=== PATIENT | male | born 1950 | race Hispanic/Latino ===

== ENCOUNTER 2017-12-21 15:17 | Emergency (ER) | payer OTHER ==
--- OUTSIDE RECORDS SUMMARY | 2017-12-21 15:19 | XMS REPORT | Continuity of Care Document ---
:1950 Author Organization Interface Problems Problem Status Onset Classification Date Comments Source Date Reported Leg swelling Active Problem 08/31/2017 [employer] [facility] Medications Medication Details Route Status Patient Ordering Order Source Instructions Provider Date Lisinopril 20 Mg Take 1 Oral Active [facility] Tablet Prinivil tablet by [facility] 20 Mg Tablet mouth daily. Atorvastatin 80 Take 1 Oral Active [facility] Tablet Lipitor tablet by [employer] 80 Mg Tablet mouth at bedtime nightly. Clopidogrel 75 Mg Take 1 Oral Active [employer] [facility] Tablet Plavix 75 tablet by [facility] Mg Tablet mouth daily. triamcinolone INTRA-A Inactive [facility] [facility] acetonide RTICULA [facility] (KENALOG-40) R injection 40 mg Spironolactone 25 Take 1 Oral Active [facility] Tablet tablet by [employer] Aldactone 25 Mg mouth daily. Tablet Furosemide 40 Mg Take 2 Oral Active [facility] [facility] Tablet Lasix 40 tablets by [employer] Mg Tablet mouth 2 times daily. Naproxen 500 Mg Take 1 Oral Active [employer] [facility] Tablet Naprosyn tablet by [employer] 500 Mg Tablet mouth 2 times daily as needed for Pain Take with food. Avoid prolonged daily use.. Furosemide 40 Mg Take 2 Oral No Longer [facility] Tablet Lasix 40 tablets by Active [facility] Mg Tablet mouth 2 times daily. Spironolactone 25 Take 1 Oral No Longer [facility] Tablet tablet by Active [employer] Aldactone 25 Mg mouth daily. Tablet Furosemide 20 Mg Take 2 Oral Active [employer] [facility] Tablet Lasix 20 tablets by [employer] Mg Tablet mouth 2 times daily. Atorvastatin 80 Take 1 Oral No Longer [facility] Tablet Lipitor tablet by Active [employer] 80 Mg Tablet mouth at bedtime nightly. Amlodipine 5 Mg Take 1 Oral Active [facility] Tablet Norvasc 5 tablet by [employer] Mg Tablet mouth daily. Clopidogrel 75 Mg Take 1 Oral No Longer [facility] [facility] Tablet Plavix 75 tablet by Active [facility] Mg Tablet mouth daily. Lisinopril 20 Mg Take 1 Oral No Longer [place] Tablet Prinivil tablet by Active [facility] 20 Mg Tablet mouth daily. Acetaminophen 300 Take 1 Oral Active [place] Mg-Codeine 30 Mg tablet by [facility] Tablet mouth every Tylenol-Codeine 4 hours as #3 300 Mg-30 Mg needed for Tablet Pain. Allergies, Adverse Reactions, Alerts Substance Category Reaction Severity Reaction Status Date Comments Source type Reported Immunizations Immunization Date Given Site Status Last Updated Comments Source Influenza Vaccine 01/03/2016 completed [facility] Results Order Results Value Reference Date Interpretation Comments Source Name Range Vital Signs Vital Sign Value Date Comments Source Systolic (mm Hg) 139 09/17/2016 [facility] Diastolic (mm Hg) 71 09/17/2016 [facility] Heart Rate 74 09/17/2016 [facility] Respitory Rate 18 09/17/2016 [facility] Temperature Oral (F) 36.72 [place] 09/17/2016 [facility] Height 157.5 cm 09/17/2016 [facility] Weight 107.956 09/17/2016 [facility] BMI Calculated 43.53 09/17/2016 [facility] Encounters Location Location Encounter Encounter Reason For Attending ADM DC Status Source Details Type Number Visit Provider Date Date Family Refill [id number] Leg Davina 08/22 [facility] swelling Franck TOLBERT /2017 [facility] Acr Abdominal swelling Family Refill [id number] Leg Davina 08/22 [facility] swelling Franck TOLBERT /2017 [facility] Abdominal swelling ASK YOUR Nurse [id number] Peppi 09/03 [place] NURSE Triage Chilo HOLLAND /2016 Health PROGRAM Emergency Emergency [id number] 09/03 09/03 [facility] /2016 Health ([id number][facility] [id number] 09/07 [facility] Home Visit /2016 [facility] Family Office [id number] Primary Luis 09/17 09/17 [place] [facility] Visit osteoarthri Donis TOLBERT /2016 Health Procedures [place] right knee Primary osteoarthri tis of left knee Family Refill [id number] Cerebrovasc Luis 12/21 [place] [facility] lisa Dykes MD /2017 [facility] [place] accident (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
--- OUTSIDE RECORDS SUMMARY | 2017-12-21 15:19 | XMS REPORT | Clinical Summary ---
:1950 Author Organization [facility] Address [address] [place] [address] Care Team Providers Name Role Phone Domenico Lawson ResidentMI Resident Care Provider Milton Andrade MD Primary Care Provider Allergies No Known Allergies Current Medications Prescription Sig. Disp. Refills Start Date End Date Status amLODIPine (NORVASC) Take 1 tablet 90 tablet 3 01/03/2016 Active 5 mg by mouth tabletIndications: daily. Cerebrovascular accident (CVA) due to thrombosis of left middle cerebral artery, Essential hypertension, benign acetaminophen-codein Take 1 tablet 45 tablet 0 01/03/2016 Active e (TYLENOL/CODEINE by mouth every #3) 300-30 mg per 4 hours as tabletIndications: needed for Cerebrovascular Pain. 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 Cerebrovascular accident (CVA) due to thrombosis of left middle cerebral artery, Bilateral swelling of feet and ankles naproxen (NAPROSYN) Take 1 tablet 180 tablet 0 05/27/2016 Active 500 mg by mouth 2 tabletIndications: times daily as Acute pain of right needed for knee Pain Take with food. Avoid prolonged daily use.. spironolactone Take 1 tablet 90 tablet 0 08/26/2016 Active (ALDACTONE) 25 mg by mouth tabletIndications: daily. Leg swelling, Abdominal swelling furosemide (LASIX) Take 2 tablets 360 tablet 0 08/26/2016 Active 40 mg by mouth 2 tabletIndications: times daily. Leg swelling, Abdominal swelling lisinopril Take 1 tablet 90 tablet 0 12/22/2016 Active (PRINIVIL) 20 mg by mouth tabletIndications: daily. Cerebrovascular accident (CVA) due to thrombosis of left middle cerebral artery, Essential hypertension, benign atorvastatin Take 1 tablet 90 tablet 0 12/22/2016 Active (LIPITOR) 80 mg by mouth at tabletIndications: bedtime Cerebrovascular nightly. 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 Cerebrovascular accident (CVA) due to thrombosis of left middle cerebral artery atorvastatin Take 1 tablet 90 tablet 3 01/03/2016 Discontinued (LIPITOR) 80 mg by mouth at 7 tabletIndications: bedtime Cerebrovascular nightly. 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 Cerebrovascular accident (CVA) due to thrombosis of left middle cerebral artery lisinopril Take 1 tablet 90 tablet 3 01/03/2016 Discontinued (PRINIVIL) 20 mg by mouth 7 tabletIndications: daily. Cerebrovascular accident (CVA) due to thrombosis of left middle cerebral artery, Essential hypertension, benign furosemide (LASIX) Take 2 tablets 360 tablet 0 05/27/2016 Discontinued 40 mg by mouth 2 7 tabletIndications: times daily. Leg swelling, Abdominal swelling spironolactone Take 1 tablet 90 tablet 0 05/27/2016 Discontinued (ALDACTONE) 25 mg by mouth 7 tabletIndications: daily. Leg swelling, Abdominal swelling Hospital, Clinic, or Other Ordered Dose Route Frequency Start Date End Date Status Facility Administered Medication triamcinolone acetonide 40 mg IX ONCE 09/17/2016 09/17/2016 Ended (KENALOG-40) injection 40 mgIndications: Primary osteoarthritis of right knee triamcinolone acetonide 40 mg IX ONCE 09/17/2016 09/17/2016 Ended (KENALOG-40) injection 40 mgIndications: Primary osteoarthritis of left knee Active Problems Problem Noted Date Leg swelling 05/27/2016 Encounters Date Type Specialty Care Team Description 01/07/2017 Pharmacy Visit 12/23/2016 Pharmacy Visit 12/22/2016 Refill Family Practice Milton Andrade, Cerebrovascular MD accident (CVA) due to thrombosis of left middle cerebral artery 12/22/2016 Pharmacy Visit 12/21/2016 Refill Family Practice Luis Dykes, Cerebrovascular accident (CVA) due to thrombosis of left middle cerebral artery; Essential hypertension, benign 09/17/2016 Office Visit Family Practice Luis Dykes, Primary osteoarthritis of right knee (Primary Dx); Primary osteoarthritis of left knee [facility] ResidentDO 09/07/2016 Pharmacy Visit 09/03/2016 Emergency Emergency Medicine 09/03/2016 Nurse Triage Fletcher Woo RN 08/22/2016 Refill Family Practice Davina Juárez MD Leg swelling; Abdominal swelling 08/22/2016 Refill [facility] Davina Juárez MD Leg swelling; Abdominal swelling after 08/21/2016 Immunizations Name Dates Previously Given Next Due Influenza Vaccine 01/03/2016 Family History Medical History Relation Name Comments Heart Father Heart Paternal Aunt Heart Paternal Uncle Relation Name Status Comments Father Paternal Aunt Paternal Uncle Social History Tobacco Use Types Packs/Day Years Used Date Current Every Day Smoker Cigarettes Tobacco Cessation: Counseling Given: No Alcohol Use Drinks/Week oz/Week Comments Yes 0 Standard drinks or equivalent 0.0 Sex Assigned at Date Recorded Not on file Last Filed Vital Signs Vital Sign Reading Time Taken Blood Pressure 139/71 09/17/2016 9:07 AM CDT Pulse 74 09/17/2016 9:07 AM CDT Temperature 36.7 C (98.1 F) 09/17/2016 7:32 AM CDT Respiratory Rate 18 09/17/2016 9:07 AM CDT Oxygen Saturation 96% 09/03/2016 2:06 PM CDT Inhaled Oxygen Concentration - - Weight 108 kg (238 lb) 09/17/2016 7:32 AM CDT Height 157.5 cm (5' 2") 09/17/2016 7:32 AM CDT Body Mass Index 43.53 09/17/2016 7:32 AM CDT Plan of Treatment Health Maintenance Due Date Last Done Comments COLORECTAL CANCER SCRN ANNUAL (FIT/FOBT) AGE 50 TO 75 11/07/2001 IMM PNEUMOCOCCAL AGE 65 AND UP 11/07/2016 Results Not on fileafter 08/21/2016
--- OUTSIDE RECORDS SUMMARY | 2017-12-21 15:20 | XMS REPORT | Clinical Summary ---
:1950 Author Organization [facility] Address [address] [place] [address] Care Team Providers Name Role Phone Milton Andrade MD Primary Care Provider Allergies [...] left middle cerebral artery, Essential hypertension, benign Hospital, Clinic, or Other Ordered Dose Route [...] Pharmacy Visit 12/22/2016 Refill Family Practice Milton Andrade Cerebrovascular MD accident (CVA) due to thrombosis of left middle cerebral artery 12/22/2016 Pharmacy Visit 12/21/2016 Refill Family Practice Luis Dykes, Cerebrovascular accident (CVA) due to thrombosis of left middle cerebral artery; Essential hypertension, benign 09/17/2016 Office Visit Family Practice Luis Dykes, Primary osteoarthritis of right knee (Primary Dx); Primary osteoarthritis of left knee [facility] 09/07/2016 Pharmacy Visit 09/03/2016 Emergency Emergency Medicine 09/03/2016 Nurse Triage Fletcher Woo RN after 08/30/2016 Immunizations Name Dates Previously Given Next Due [...] AND UP 11/07/2016 Results Not on fileafter 08/30/2016
[2017-12-21 16:18] LABS: Absolute Lymphocytes (CBC) 1.3 K/uL (0.7-4.9); Absolute Neutrophil 5.4 K/uL (1.8-8.0); Basophils % 0.4 % (0-1.3); Eosinophils % 3.6 % (0-4.4); Lymphocytes % 16.6 % (15.3-44.8); MCH 29.6 pg (27.0-35.0); MPV 7.7 fL (7.6-11.3); Monocytes % 12.9 % (3.3-12.3)
[2017-12-21 16:37] LABS: ALT/SGPT 78 U/L (12-78); AST/SGOT 51 U/L (15-37); Albumin 3.2 g/dL (3.4-5.0); Alkaline Phosphatase 58 U/L (45-117); BUN Blood Urea Nitrogen 7 mg/dL (7-18); Bicarbonate 24 mmol/L (21-32); Bilirubin Direct 0.2 mg/dL (0-0.2); Bilirubin Total 0.8 mg/dL (0.2-1.0); Glucose Level 80 mg/dL (74-106); Lipase 171 U/L (73-393); Protein, Total 7.3 g/dL (6.4-8.2); Sodium Level 125 mmol/L (136-145)
[2017-12-21 16:38] LABS: NT PRO-BNP 40 pg/mL (<125); Troponin I < 0.02 ng/mL (0.0-0.045)
--- NOTE | 2017-12-21 16:46 | RAD REPORT ---
EXAM DESCRIPTION: CT - Stone Protocol - 12/21/2017 4:25 pm CLINICAL HISTORY: Abdominal pain. Flank pain COMPARISON: None. TECHNIQUE: Computed axial tomography of the abdomen pelvis was obtained without oral or IV contrast. Lack of IV and oral contrast limits evaluation of solid organs, bowel, and vessels. Coronal reformat [place] images were obtained and reviewed. All CT scans are performed using dose optimization technique as appropriate and may include automated exposure control or mA/KV adjustment according to patient size. FINDINGS: A renal calculus is not seen. An ureteral calculus is not noted. A bladder calculus is not present. Fatty infiltration liver is present. Spleen, pancreas and adrenals appear grossly normal There is no evidence of diverticulitis. The appendix appears normal Inguinal hernias contain fat. Periumbilical hernias contain fat. Spondylosis involves the lumbar spin e resulting spinal stenosis IMPRESSION: Negative for a genitourinary calculus
--- NOTE | 2017-12-21 16:52 | RAD REPORT ---
EXAM DESCRIPTION: [facility] Single View12/21/2017 4:34 pm CLINICAL HISTORY: Chest pain COMPARISON: none FINDINGS: The lungs appear clear of acute infiltrate. The heart is normal size IMPRESSION: No acute abnormalities displayed
[2017-12-21] MEDS ORDERED: CYCLOBENZAPRINE 10 MG TAB ONE (17:09)
[2017-12-21] MEDS ORDERED: KETOROLAC 30 MG/ML INJ ONE (17:09)
[2017-12-21] MEDS ORDERED: NA CHLORIDE 0.9% 1,000 ML ONE (17:10)
[2017-12-21 17:15] LABS: Urine Blood TRACE (NEG); Urine Glucose NEGATIVE (NEG); Urine Protein NEGATIVE (NEG)
[2017-12-21 17:16] LABS: Urine Bacteria NONE SEEN /HPF (NONE SEEN); Urine RBC <5 /HPF (NONE SEEN); Urine Sperm PRESENT (NONE SEEN)
[2017-12-21 17:17] LABS: Urine Culture Reflex Order REFLEXED
--- NOTE | 2017-12-21 17:51 | ER ---
Nurse's Notes [facility] Name: Maik German Age: 67 yrs Sex: Male : 1950 Arrival Date: 12/21/2017 Time: 15:18 Bed 13 Private MD: None, None Diagnosis: Low back pain;Hyponatremia Presentation: 12/21 15:20 Presenting complaint: Patient states: I think I have a kidney infection because I have jl7 pain to entire lower back that started yesterday. Denies burning and pain with urination, no other symptoms. Transition of care: patient was not received from another setting of care. Onset of symptoms was December 20, 2017. Risk Assessment: Do you want to hurt yourself or someone else?. Initial Sepsis Screen: Does the patient meet any 2 criteria? No. Patient's initial sepsis screen is negative. Does the patient have a suspected source of infection? No. Patient's initial sepsis screen is negative. Care prior to arrival: None. 15:20 Method Of Arrival: Wheelchair jl7 15:20 Acuity: EMMA 3 jl7 Triage Assessment: 15:25 General: Appears in no apparent distress. uncomfortable, Behavior is calm, cooperative, jl7 appropriate for age. Pain: Complains of pain in low back area Pain currently is 10 out of 10 on a pain scale. Pain began 1 day ago. Musculoskeletal: Range of motion: limited in low back. Historical: - Allergies: 15:25 No Known Allergies; jl7 - Home Meds: 15:25 Lisinopril Oral [Active]; atorvastatin oral oral [Active]; clopidogrel oral [Active]; jl7 aspirin 81 mg Oral chew 1 tab once daily [Active]; Vitamin D3 oral oral [Active]; - PMHx: 15:25 Hyperlipidemia; Hypertension; CVA; jl7 - PSHx: 15:25 Hernia repair; jl7 - Immunization history:: Adult Immunizations up to date. - Social history:: Smoking status: Patient uses tobacco products, smokes one pack cigarettes per day. Patient uses alcohol, claims drinking about a 6 pack/day. - Ebola Screening: : No symptoms or risks identified at this time. Screenin:31 Abuse screen: Denies threats or abuse. Nutritional screening: No deficits noted. tw2 Tuberculosis screening: No symptoms or risk factors identified. Fall Risk None identified. Assessment: 15:37 General: Appears in no apparent distress. uncomfortable, obese, Behavior is calm, tw2 cooperative, appropriate for age, Smells of cigarette smoke. Pain: Complains of pain in low back area. Neuro: Level of Consciousness is awake, alert, obeys commands, Oriented to person, place, time, situation. Cardiovascular: Denies chest pain, shortness of breath, Heart tones S1 S2 Capillary refill < 3 seconds Patient's skin is warm and dry. Cardiovascular: Edema is 2+ to left midcalf, left ankle, right midcalf and right ankle. Respiratory: Airway is patent Respiratory effort is even, unlabored, Respiratory pattern is regular, symmetrical, Breath sounds are clear bilaterally. GI: Patient currently denies diarrhea, nausea. : Denies burning with urination. EENT: No signs and/or symptoms were reported regarding the EENT system. Derm: No signs and/or symptoms reported regarding the dermatologic system. Musculoskeletal: Range of motion: intact in all extremities. 16:46 Reassessment: No changes from previously documented assessment. Patient and/or family tw2 updated on plan of care and expected duration. Pain level reassessed. Patient is alert, oriented x 3, equal unlabored respirations, skin warm/dry/pink. 18:04 Reassessment: Patient appears in no apparent distress at this time. Patient and/or tw2 family updated on plan of care and expected duration. Pain level reassessed. Patient is alert, oriented x 3, equal unlabored respirations, skin warm/dry/pink. Patient states feeling better. Patient states symptoms have improved. Vital Signs: 15:25 BP 153 / 64; Pulse 75; Resp 21 S; Temp 98.3(O); Pulse Ox 96% on R/A; Weight 104.33 kg jl7 (R); Height 5 ft. 4 in. (162.56 cm) (R); Pain 10/10; 16:46 BP 170 / 78; Pulse 68; Resp 17; Pulse Ox 98% on R/A; tw2 17:42 BP 184 / 81; Pulse 69; Resp 17; Pulse Ox 100% on R/A; Pain 8/10; tw2 17:53 BP 184 / 93; Pulse 65; Resp 17; Pulse Ox 100% on R/A; tw2 15:25 Body Mass Index 39.48 (104.33 kg, 162.56 cm) jl7 ED Course: 15:18 Patient arrived in ED. mr 15:18 None, None is Private Physician. mr 15:22 Triage completed. jl7 15:25 Arm band placed on right wrist. Patient placed in an exam room, on a stretcher. jl7 15:27 Albino Trammell MD is Attending Physician. [facility] 15:30 Marialuisa Wilkins, RN is Primary Nurse. tw2 15:31 Bed in low position. Call light in reach. Pulse ox on. NIBP on. tw2 15:59 Albino Duval PA is PHCP. cp 16:11 Inserted saline lock: 20 gauge in right antecubital area, using aseptic technique. tw2 Blood collected. 16:25 CT Stone Protocol In Process Unspecified. EDMS 16:34 EKG done, by bicycle repair technician. reviewed by Albino DOMINGUEZ. sm3 16:35 XRAY Chest (1 view) In Process Unspecified. EDMS 17:55 No provider procedures requiring assistance completed. IV discontinued, intact, tw2 bleeding controlled, No redness/swelling at site. Pressure dressing applied. Administered Medications: 17:07 Drug: TORadol 30 mg Route: IVP; Site: right antecubital; tw2 17:45 Follow up: Response: No adverse reaction; Pain is decreased tw2 17:07 Drug: NS 0.9% 1000 ml Route: IV; Rate: 1 bolus; Site: right antecubital; tw2 17:45 Follow up: Response: No adverse reaction; IV Status: Completed infusion; IV Intake: tw2 1000ml 17:07 Drug: Flexeril 10 mg Route: PO; tw2 17:46 Follow up: Response: No adverse reaction tw2 Intake: 17:45 IV: 1000ml; Total: 1000ml. tw2 Outcome: 17:51 Discharge ordered by . cp 18:03 Discharged to home ambulatory, with significant other. tw2 18:03 Condition: stable 18:03 Discharge instructions given to patient, significant other, Instructed on discharge instructions, follow up and referral plans. no drinking with medication, no driving heavy equipment, medication usage, Demonstrated understanding of instructions, follow-up care, medications, Prescriptions given X 2. 18:04 Patient left the ED. tw2 Signatures: Dispatcher [employer] EDMS Jp, Albino, MD MD zenaida Connie German Corey, PA PA cp Wise, Tara RN RN tw2 Jose Burnett RN RN jl7 Joann Paz 3
--- NOTE | 2017-12-21 17:52 | EDPHYS ---
Physician Documentation [facility] Name: Maik German Age: 67 yrs Sex: Male : 1950 Arrival Date: 12/21/2017 Time: 15:18 Bed 13 Private MD: None, None ED Physician Albino Trammell HPI: 12/21 16:00 This 67 yrs old Male presents to ER via Wheelchair with complaints of Back cp Pain. 16:00 The patient presents with pain that is acute, with no known mechanism of injury. The cp symptoms are located in the low back area and mid back area. Onset: The symptoms/episode began/occurred yesterday. 16:00 The pain does not radiate. Associated signs and symptoms: Pertinent negatives: cp abdominal pain, constipation, dysuria, fever, hematuria, incontinence, numbness, urinary retention, weakness. The problem was sustained from unknown cause. Modifying factors: the patient symptoms are aggravated by movement. Severity of symptoms: in the emergency department the symptoms are unchanged, despite home interventions. Historical: - Allergies: 15:25 No Known Allergies; jl7 - Home Meds: 15:25 Lisinopril Oral [Active]; atorvastatin oral oral [Active]; clopidogrel oral [Active]; jl7 aspirin 81 mg Oral chew 1 tab once daily [Active]; Vitamin D3 oral oral [Active]; - PMHx: 15:25 Hyperlipidemia; Hypertension; CVA; jl7 - PSHx: 15:25 Hernia repair; jl7 - Immunization history:: Adult Immunizations up to date. - Social history:: Smoking status: Patient uses tobacco products, smokes one pack cigarettes per day. Patient uses alcohol, claims drinking about a 6 pack/day. - Ebola Screening: : No symptoms or risks identified at this time. ROS: 16:05 Constitutional: Negative for body aches, chills, fever, poor PO intake. cp 16:05 Eyes: Negative for injury, pain, redness, and discharge. cp 16:05 ENT: Negative for drainage from ear(s), ear pain, sore throat, difficulty swallowing, difficulty handling secretions. 16:05 Cardiovascular: Negative for chest pain, edema, palpitations. 16:05 Respiratory: Negative for cough, shortness of breath, wheezing. 16:05 Abdomen/GI: Negative for abdominal pain, nausea, vomiting, and diarrhea, black/tarry stool, rectal bleeding. 16:05 Back: Positive for pain at rest, pain with movement, of the low back area and mid back area, Negative for injury or acute deformity, decreased range of motion. 16:05 : Negative for urinary symptoms, testicular pain 16:05 Skin: Negative for cellulitis, rash. 16:05 Neuro: Negative for altered mental status, dizziness, headache, syncope, weakness. 16:05 All other systems are negative. Exam: 16:12 Constitutional: The patient appears in no acute distress, alert, awake, cp non-diaphoretic, non-toxic, well developed, well nourished, obese. 16:12 Head/Face: Normocephalic, atraumatic. cp 16:12 Eyes: Periorbital structures: appear normal, Conjunctiva: normal, no exudate, no injection, Sclera: no appreciated abnormality, Lids and lashes: appear normal, bilaterally. 16:12 ENT: External ear(s): are unremarkable, Nose: is normal, Mouth: Lips: moist, Oral mucosa: pink and intact, moist, Posterior pharynx: is normal, airway is patent, no erythema, no exudate. 16:12 Neck: ROM/movement: is normal, is supple, without pain, no range of motions limitations, no meningismus, no nuchal rigidity. 16:12 Chest/axilla: Inspection: normal, Palpation: is normal, no crepitus, no tenderness. 16:12 Cardiovascular: Rate: normal, Rhythm: regular, JVD: is not appreciated. 16:12 Respiratory: the patient does not display signs of respiratory distress, Respirations: normal, no use of accessory muscles, no retractions, no splinting, no tachypnea, labored breathing, is not present, Breath sounds: are clear throughout, no decreased breath sounds, no stridor, no wheezing. 16:12 Abdomen/GI: Inspection: obese Bowel sounds: active, all quadrants, Palpation: soft, in all quadrants, nontender, in all quadrants, rebound tenderness, is not appreciated, voluntary guarding, is not appreciated, involuntary guarding, is not appreciated. 16:12 Back: pain, that is moderate, of the low back area and mid back area, ROM is painful, vertebral tenderness, is not appreciated, Straight leg raises: of both lower extremities does not illicit pain. 16:12 Skin: cellulitis, is not appreciated, no rash present. 16:12 Neuro: Orientation: to person, place \T\ time. Mentation: is normal, Cerebellar function: is grossly normal, Motor: moves all fours, strength is normal, Sensation: is normal, Deep tendon reflexes are 2+ (normal) in the right patellar, right Achilles, left patellar and left Achilles. 16:25 ECG was reviewed by the Attending Physician. cp Vital Signs: 15:25 BP 153 / 64; Pulse 75; Resp 21 S; Temp 98.3(O); Pulse Ox 96% on R/A; Weight 104.33 kg jl7 (R); Height 5 ft. 4 in. (162.56 cm) (R); Pain 10/10; 16:46 BP 170 / 78; Pulse 68; Resp 17; Pulse Ox 98% on R/A; tw2 17:42 BP 184 / 81; Pulse 69; Resp 17; Pulse Ox 100% on R/A; Pain 8/10; tw2 17:53 BP 184 / 93; Pulse 65; Resp 17; Pulse Ox 100% on R/A; tw2 15:25 Body Mass Index 39.48 (104.33 kg, 162.56 cm) jl7 MDM: 15:31 Patient medically screened. zenaida 16:00 Differential diagnosis: Abdominal Aortic Aneurysm Cholelithiasis Pyelonephritis cp ruptured disc, Ureterolithiasis kidney stone. 17:50 Data reviewed: vital signs, nurses notes, lab test result(s), radiologic studies, CT cp scan. 17:50 Counseling: I had a detailed discussion with the patient and/or guardian regarding: the cp historical points, exam findings, and any diagnostic results supporting the discharge/admit diagnosis, lab results, radiology results, the need for outpatient follow up, a family practitioner, to return to the emergency department if symptoms worsen or persist or if there are any questions or concerns that arise at home. Response to treatment: the patient's symptoms have markedly improved after treatment, VSS. Pain improved with meds. Discussed results of labs showing low sodium level and need to increase sodium intake. Will discharge to home for continued monitoring and recommend f/u with PCP to recheck sodium level and today's complaints. 12/21 15:59 Order name: Basic Metabolic Panel; Complete Time: 16:44 iw 12/21 16:45 Interpretation: Normal except: NA 125; CL 94. cp 12/21 15:59 Order name: CBC with Diff; Complete Time: 16:44 iw 12/21 16:45 Interpretation: Normal except: MN% 12.9. cp 12/21 15:59 Order name: Creatinine for Radiology; Complete Time: 16:44 iw 12/21 15:59 Order name: Hepatic Function; Complete Time: 16:44 iw 12/21 16:45 Interpretation: Normal except: AST 51; ALB 3.2; GLOB 4.1; A/G 0.8. cp 12/21 15:59 Order name: Lipase; Complete Time: 16:44 iw 12/21 16:04 Order name: Urine Microscopic Only; Complete Time: 17:18 cp 12/21 17:18 Interpretation: Reviewed. 12/21 15:59 Order name: CT Stone Protocol; Complete Time: 16:57 iw 12/21 16:58 Interpretation: Report reviewed. 12/21 16:04 Order name: XRAY Chest (1 view); Complete Time: 16:57 cp 12/21 16:04 Order name: BNP; Complete Time: 16:44 cp 12/21 16:04 Order name: Troponin I; Complete Time: 16:44 cp 12/21 16:04 Order name: Magnesium; Complete Time: 16:44 cp 12/21 17:03 Order name: Urine Dipstick--Ancillary (enter results); Complete Time: 17:18 bd 12/21 17:19 Interpretation: Normal except: UBLD TRACE. 12/21 17:19 Order name: Urine Culture EDMS 12/21 15:57 Order name: Urine Dipstick-Ancillary (obtain specimen); Complete Time: 15:57 tw2 12/21 15:59 Order name: IV Saline Lock; Complete Time: 16:11 iw 12/21 15:59 Order name: Labs collected and sent; Complete Time: 16:11 iw 12/21 16:04 Order name: EKG; Complete Time: 16:05 cp 12/21 16:04 Order name: EKG - Nurse/Tech; Complete Time: 16:12 cp EC:25 Rate is 72 beats/min. Rhythm is regular. [place] interval is normal. QRS interval is normal. cp QT interval is normal. Interpreted by me. Reviewed by me. Administered Medications: 17:07 Drug: TORadol 30 mg Route: IVP; Site: right antecubital; tw2 17:45 Follow up: Response: No adverse reaction; Pain is decreased tw2 17:07 Drug: NS 0.9% 1000 ml Route: IV; Rate: 1 bolus; Site: right antecubital; tw2 17:45 Follow up: Response: No adverse reaction; IV Status: Completed infusion; IV Intake: tw2 1000ml 17:07 Drug: Flexeril 10 mg Route: PO; tw2 17:46 Follow up: Response: No adverse reaction tw2 Disposition: 12/22 09:01 Co-signature as Attending Physician, Albino Trammell MD I agree with the assessment and zenaida plan of care. Disposition: 12/21/17 17:51 Discharged to Home. Impression: Low back pain, Hyponatremia. - Condition is Stable. - Discharge Instructions: Back Pain, Adult, Hyponatremia, Back Exercises, [id number]. - Prescriptions for Cyclobenzaprine 10 mg Oral Tablet - take 1 tablet by ORAL route every 8 hours As needed no driving while taking medication; 20 tablet. Tramadol 50 mg Oral Tablet - take 1 tablet by ORAL route every 8 hours as needed. no driving while taking medication; 20 tablet. - Work release form, Medication Reconciliation Form, Thank You Letter, Antibiotic Education, Prescription Opioid Use form. - Follow up: Private Physician; When: 1 - 2 days; Reason: Recheck today's complaints. - Problem is new. - Symptoms have improved. Signatures: Dispatcher [employer] Albino Glass MD MD cha Williams, Irene, RN Albino Douglas PA PA cp Marialuisa Wilkins RN RN tw2 Jose Burnett RN RN jl7 Corrections: (The following items were deleted from the chart) 12/21 18:04 17:51 12/21/2017 17:51 Discharged to Home. Impression: Low back pain; Hyponatremia. tw2 Condition is Stable. Forms are Medication Reconciliation Form, Thank You Letter, Antibiotic Education, Prescription Opioid Use. Follow up: Private Physician; When: 1 - 2 days; Reason: Recheck today's complaints. Problem is new. Symptoms have improved. cp
--- NOTE | 2017-12-22 07:50 | EKG ---
Test Date: 2017-12-21 Test Time: 16:19:22 Field Cane Scaler: EDWIN MEASUREMENT RESULTS: Intervals: Rate: 72 KS: 146 QRSD: 76 QT: 392 QTc: 429 [place]side: P: 21 KS: 146 QRS: 18 T: 37 INTERPRETIVE STATEMENTS: Normal sinus rhythm Normal ECG No previous ECG available for comparison Electronically Signed On 12-22-17 07:49:15 CDT by Mike Church
== END 2017-12-21 18:04 | disposition home or self-care (01) ==
LOC: ER 15:17
DX: E87.1 Hypo-osmolality and hyponatremia (principal); I10 Essential (primary) hypertension; E78.5 Hyperlipidemia, unspecified; Z86.73 Personal history of transient ischemic attack (TIA), and cerebral infarction without residual deficits
CPT/HCPCS: 36415; 71045; 74176; 76377; 80048; 80076; 83690; 83735; 83880; 84484; 85025; 87086; 87088; 93005; J7030; 81003; 81015; 96361; 96374; 99284

== ENCOUNTER 2018-06-15 10:31 | Inpatient (IN) | payer OTHER ==
--- OUTSIDE RECORDS SUMMARY | 2018-06-15 11:01 | XMS REPORT ---
:1950 [facility] Address [address] [place] [address] [address] Care Team Providers Name Role Phone Unavailable Unavailable Unavailable Problems This patient has no known problems. Allergies, Adverse Reactions, Alerts This patient has no known allergies or adverse reactions. Medications This patient has no known medications. Encounters Start End Encounter Admission Attending Care Care Encounter Date/Time Date/Time Type Type Clinicians Facility Department ID 2016-09-17 2016-09-17 Outpatient [facility] [id number] 07:31:53 07:31:53 2016-09-03 2016-09-03 Emergency [facility] MED [id number] 14:03:00 14:03:00 2016-07-16 2016-07-16 Outpatient [facility] [id number] 00:00:00 00:00:00
--- OUTSIDE RECORDS SUMMARY | 2018-06-15 11:01 | XMS REPORT | Continuity of Care Document ---
:1950 Author Organization Interface Problems Problem Status Onset Classification Date Comments Source Date Reported Leg swelling Active Problem 08/31/2017 [facility] Medications Medication Details Route Status Patient Ordering Order Source Instructions Provider Date Lisinopril 20 Mg Take 1 Oral Active [facility] Tablet Prinivil tablet by [facility] 20 Mg Tablet mouth daily. Atorvastatin 80 Take 1 Oral Active [facility] Mg Tablet Lipitor tablet by V[facility]O 80 Mg Tablet mouth at bedtime nightly. Clopidogrel 75 Mg Take 1 Oral Active [facility] Tablet Plavix 75 tablet by [facility] Mg Tablet mouth daily. triamcinolone INTRA-A Inactive [facility] acetonide RTICULA V[facility] (KENALOG-40) R injection 40 mg Spironolactone 25 Take 1 Oral Active [facility] Mg Tablet tablet by [facility] Aldactone 25 Mg mouth daily. Tablet Furosemide 40 Mg Take 2 Oral Active [facility] Tablet Lasix 40 tablets by [facility] Mg Tablet mouth 2 times daily. Naproxen 500 Mg Take 1 Oral Active [facility] Tablet Naprosyn tablet by [facility] 500 Mg Tablet mouth 2 times daily as needed for Pain Take with food. Avoid prolonged daily use.. Furosemide 40 Mg Take 2 Oral No Longer [facility] Tablet Lasix 40 tablets by Active [facility] Mg Tablet mouth 2 times daily. Spironolactone 25 Take 1 Oral No Longer [facility] Mg Tablet tablet by Active [facility] Aldactone 25 Mg mouth daily. Tablet Furosemide 20 Mg Take 2 Oral Active [facility] Tablet Lasix 20 tablets by [facility] Mg Tablet mouth 2 times daily. Atorvastatin 80 Take 1 Oral No Longer [facility] Mg Tablet Lipitor tablet by Active [facility] 80 Mg Tablet mouth at bedtime nightly. Amlodipine 5 Mg Take 1 Oral Active [facility] Tablet Norvasc 5 tablet by [facility] Mg Tablet mouth daily. Clopidogrel 75 Mg Take 1 Oral No Longer [facility] Tablet Plavix 75 tablet by Active [facility] Mg Tablet mouth daily. Lisinopril 20 Mg Take 1 Oral No Longer [facility] Tablet Prinivil tablet by Active [facility] 20 Mg Tablet mouth daily. Acetaminophen 300 Take 1 Oral Active [facility] Mg-Codeine 30 Mg tablet by [facility] Tablet mouth every Tylenol-Codeine 4 hours as #3 300 Mg-30 Mg needed for Tablet Pain. Allergies, Adverse Reactions, Alerts Substance Category Reaction Severity Reaction Status Date Comments Source type Reported Immunizations Immunization Date Given Site Status Last Updated Comments Source Influenza Vaccine 01/03/2016 completed [facility] Results Order Results Value Reference Date Interpretation Comments Source Name Range Vital Signs Vital Sign Value Date Comments Source Systolic (mm Hg) 139 09/17/2016 [facility] Diastolic (mm Hg) 71 09/17/2016 [facility] Heart Rate 74 09/17/2016 [facility] Respitory Rate 18 09/17/2016 [facility] Temperature Oral (F) 36.72 [place] 09/17/2016 [facility] Height 157.5 cm 09/17/2016 [facility] Weight 107.956 09/17/2016 [facility] BMI Calculated 43.53 09/17/2016 [facility] Encounters Location Location Encounter Encounter Reason For Attending ADM DC Status Source Details Type Number Visit Provider Date Date Family Refill [id number] Leg Davina 08/22 [facility] swelling Franck TOLBERT /2017 [facility] Abdominal swelling Family Refill [id number] Leg Davina 08/22 [facility] swelling Franck TOLBERT /2017 [facility] Abdominal swelling ASK YOUR Nurse [id number] Peppi 09/03 [facility] Triage Chilo HOLLAND /2016 [facility] Emergency Emergency [id number] 09/03 09/03 [facility] /2016 Health ([id number]) [facility] [id number] 09/07 [facility] Home Visit /2016 [facility] Family Office [id number] Primary Luis 09/17 09/17 [facility] Visit osteoarthri Donis TOLBERT /2016 [facility] Procedures [place] right knee Primary osteoarthri tis of left knee Family Refill [id number] Cerebrovasc Luis 12/21 [facility] lisa Dykes MD /2017 [facility] [place] 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
[2018-06-15 11:58] LABS: Absolute Monocytes 0.8 K/uL (0.1-1.3); Basophils % 0.8 % (0-1.3); Eosinophils % 2.7 % (0-4.4); Hematocrit 41.3 % (39.6-49.0); MPV 7.7 fL (7.6-11.3); Monocytes % 10.9 % (3.3-12.3); RBC Red Blood Cell Count 4.83 M/uL (4.33-5.43)
[2018-06-15 12:26] LABS: ALT/SGPT 88 U/L (12-78); AST/SGOT 91 U/L (15-37); Albumin 3.3 g/dL (3.4-5.0); Alkaline Phosphatase 79 U/L (45-117); BUN Blood Urea Nitrogen 5 mg/dL (7-18); Bicarbonate 23 mmol/L (21-32); Bilirubin Total 0.9 mg/dL (0.2-1.0); Glucose Level 81 mg/dL (74-106); Potassium 4.4 mmol/L (3.5-5.1); Protein, Total 7.5 g/dL (6.4-8.2); Sodium Level 123 mmol/L (136-145)
[2018-06-15] MEDS: VANCOMYCIN 1.25 GM in NA CHLORIDE 0.9% 250 ML IVPB SCH (15:00)
[2018-06-15] MEDS: chlordiazePOXIDE HCl 25 MG CAP PO SCH ×2 (17:03→23:49)
[2018-06-15] MEDS: NICOTINE 7 MG/PAT TD SCH (17:04)
[2018-06-15] MEDS: THIAMINE 200 MG/2 ML INJ IM SCH (17:04)
[2018-06-15] MEDS: NA CHLORIDE 0.9% 1,000 ML IV SCH (19:30)
[2018-06-15] MEDS: ATORVASTATIN 80 MG TAB PO SCH (20:52)
[2018-06-15] MEDS: HYDRALAZINE HCL 20 MG/ML VIAL IV PRN (20:52)
[2018-06-16] MEDS: VANCOMYCIN 1.25 GM in NA CHLORIDE 0.9% 250 ML IVPB SCH ×2 (02:00→13:20)
[2018-06-16] MEDS: HYDRALAZINE HCL 20 MG/ML VIAL IV PRN ×2 (05:36→11:49)
[2018-06-16] MEDS: chlordiazePOXIDE HCl 25 MG CAP PO SCH ×4 (05:36→23:37)
[2018-06-16] MEDS: NICOTINE 7 MG/PAT TD SCH (08:37)
[2018-06-16] MEDS: ASPIRIN EC 81 MG TAB PO SCH (08:37)
[2018-06-16] MEDS: LISINOPRIL 20 MG TAB PO SCH (08:37)
[2018-06-16] MEDS: VITAMIN D 5,000 UNIT CAP PO SCH (08:37)
[2018-06-16] MEDS: CLOPIDOGREL 75 MG TABLET PO SCH (08:37)
[2018-06-16] MEDS: NA CHLORIDE 0.9% 1,000 ML IV SCH (15:00)
[2018-06-16] MEDS: THIAMINE 200 MG/2 ML INJ IM SCH (17:00)
[2018-06-16] MEDS: TRAMADOL HCL 50 MG TAB PO PRN (17:57)
[2018-06-16] MEDS: NICOTINE 14 MG/PAT TD SCH (18:57)
[2018-06-16] MEDS: ATORVASTATIN 80 MG TAB PO SCH (21:22)
[2018-06-17] MEDS: VANCOMYCIN 1.25 GM in NA CHLORIDE 0.9% 250 ML IVPB SCH ×2 (02:09→13:13)
--- NOTE | 2018-06-17 02:34 | HP ---
Date of Admission: 06/15/2018 Chief Complaint: Pain, swelling, redness, right leg. History Of Present Illness: A 67-year-old male was seen in the office a couple of weeks ago with kya lulitis needing IV antibiotic therapy, however, he refused. He was given clindamycin. The patient h ad a in the family. He tried antibiotic and as there is no improvement, he returned to office when he was found to have continued spreading of the cellulitis. In view of this, the patient is adm itted for IV antibiotic therapy. The patient denies any fresh injury to the leg. Past Medical History: Positive for: 1.CVA. 2.History of hypertension. 3.History of chronic alcohol abuse. Family History: Noncontributory. Personal History: The patient has no known allergies. The patient has history of smoking. Home Medicines: Include Plavix, hydralazine, Lipitor, aspirin, vitamin D. Review of Systems: The patient denies any chest pain or shortness of breath. Physical Examination: General: Revealed 67-year-old male, anxious and tremulous. HEENT: No icterus. Neck: Supple. JVD negative. Chest: Scattered wheezes. Heart: Regular. Abdomen: Pendulous, nontender. Extremities: There is diffuse area of swelling, redness, and tenderness of the right leg starting be low the calf to the ankle area. Pedal pulse is present. Laboratory Data: White count normal. Assessment: 1.Cellulitis, not responding to oral antibiotics. 2.History of CVA with residual weakness, right side. 3.History of chronic alcohol abuse. 4.Hypertension. Plan: The patient is started on vancomycin. The patient is started on his medication. He is receiv ing thiamine and Librium to prevent alcohol withdrawal syndrome. RRK/MODL Voice ID: [id number]
[2018-06-17] MEDS: chlordiazePOXIDE HCl 25 MG CAP PO SCH ×4 (05:46→23:38)
[2018-06-17] MEDS: NA CHLORIDE 0.9% 1,000 ML IV SCH ×2 (05:50→11:00)
[2018-06-17] MEDS: THIAMINE 200 MG/2 ML INJ IM SCH ×2 (08:47→21:49)
[2018-06-17] MEDS: VITAMIN D 5,000 UNIT CAP PO SCH (08:52)
[2018-06-17] MEDS: LISINOPRIL 20 MG TAB PO SCH (08:52)
[2018-06-17] MEDS: NICOTINE 14 MG/PAT TD SCH (08:52)
[2018-06-17] MEDS: CLOPIDOGREL 75 MG TABLET PO SCH (08:52)
[2018-06-17] MEDS: ASPIRIN EC 81 MG TAB PO SCH (08:52)
[2018-06-17 15:49] LABS: BUN Blood Urea Nitrogen 11 mg/dL (7-18); Bicarbonate 27 mmol/L (21-32); Glucose Level 71 mg/dL (74-106); Potassium 3.8 mmol/L (3.5-5.1); Sodium Level 135 mmol/L (136-145)
[2018-06-17] MEDS: ENOXAPARIN 30 MG/0.3 ML SQ SCH (17:24)
--- NOTE | 2018-06-17 18:52 | PN ---
Subjective: The patient looks little better. There is no active drainage. There is already scab fo rmation. The patient is benefitting from IV antibiotic therapy. His sodium we will recheck today an d he is started on Lovenox. He does not have as much alcohol withdrawal symptoms. In view of this, he will be continued on the same management. MILO/EVE Voice ID: [id number] Report ID: [id number]
[2018-06-17] MEDS: HYDRALAZINE HCL 20 MG/ML VIAL IV PRN (21:48)
[2018-06-17] MEDS: ATORVASTATIN 80 MG TAB PO SCH (21:49)
[2018-06-18] MEDS: VANCOMYCIN 1.25 GM in NA CHLORIDE 0.9% 250 ML IVPB SCH ×2 (02:25→14:55)
[2018-06-18] MEDS: chlordiazePOXIDE HCl 25 MG CAP PO SCH ×3 (05:28→17:07)
[2018-06-18] MEDS: TRAMADOL HCL 50 MG TAB PO PRN (07:17)
[2018-06-18] MEDS: THIAMINE 200 MG/2 ML INJ IM SCH (09:00)
[2018-06-18] MEDS: CLOPIDOGREL 75 MG TABLET PO SCH (09:46)
[2018-06-18] MEDS: VITAMIN D 5,000 UNIT CAP PO SCH (09:46)
[2018-06-18] MEDS: NICOTINE 14 MG/PAT TD SCH (09:46)
[2018-06-18] MEDS: LISINOPRIL 20 MG TAB PO SCH (09:47)
[2018-06-18] MEDS: ENOXAPARIN 30 MG/0.3 ML SQ SCH (09:47)
[2018-06-18] MEDS: ASPIRIN EC 81 MG TAB PO SCH (09:47)
[2018-06-18] MEDS: ATORVASTATIN 80 MG TAB PO SCH (20:35)
[2018-06-19] MEDS: chlordiazePOXIDE HCl 25 MG CAP PO SCH ×3 (00:59→12:47)
[2018-06-19] MEDS: VANCOMYCIN 1.25 GM in NA CHLORIDE 0.9% 250 ML IVPB SCH (00:59)
--- NOTE | 2018-06-19 03:08 | PN ---
The patient's leg looks better. He still has significant amount of swelling. I advised him to keep the leg elevated. I also told him about alcoholic liver disease. The patient, however, is not sure how to deal with his alcohol problem. I will discuss with him again. MILO/EVE Voice ID: [id number] Report ID: [id number]
[2018-06-19] MEDS: TRAMADOL HCL 50 MG TAB PO PRN (06:51)
[2018-06-19] MEDS: ENOXAPARIN 30 MG/0.3 ML SQ SCH (09:00)
[2018-06-19] MEDS ORDERED: THIAMINE HCL 100 MG TABLET PO SCH (09:00)
[2018-06-19] MEDS: NICOTINE 14 MG/PAT TD SCH (09:00)
[2018-06-19] MEDS: VITAMIN D 5,000 UNIT CAP PO SCH (10:33)
[2018-06-19] MEDS: ASPIRIN EC 81 MG TAB PO SCH (10:33)
[2018-06-19] MEDS: CLOPIDOGREL 75 MG TABLET PO SCH (10:33)
[2018-06-19] MEDS: LISINOPRIL 20 MG TAB PO SCH (10:33)
== END 2018-06-19 14:46 | disposition home or self-care (01) | DRG 603 ==
LOC: 4TH 10:58
PROVIDERS: ADMIT Internal Medicine; ATTEND Internal Medicine
DX: L03.115 Cellulitis of right lower limb (principal); I69.351 Hemiplegia and hemiparesis following cerebral infarction affecting right dominant side; F10.10 Alcohol abuse, uncomplicated; I10 Essential (primary) hypertension; Z79.02 Long term (current) use of antithrombotics/antiplatelets; Z79.82 Long term (current) use of aspirin
CPT/HCPCS: 36415; 80048; 80053; 80202; 85025; J0360; J1650; J3411; J7030

== ENCOUNTER 2018-12-23 22:02 | Emergency (ER) | payer OTHER ==
[2018-12-23] MEDS ORDERED: FAMOTIDINE 20 MG TAB ONE (22:29)
[2018-12-23] MEDS ORDERED: DIPHENHYDRAMINE 50 MG/ML VIAL ONE (22:29)
[2018-12-23] MEDS ORDERED: predniSONE 20 MG TAB ONE (22:29)
--- NOTE | 2018-12-24 00:08 | ER ---
Nurse's Notes [facility] Name: Maik German Age: 68 yrs Sex: Male : 1950 Arrival Date: 12/23/2018 Time: 22:04 Bed 27 Private MD: Diagnosis: Adverse effect of other antihypertensive drugs;Angioedema Presentation: 12/23 22:19 Presenting complaint: Patient states: he lay down to sleep at approx 1900 and when he bb woke up the left side of his face was swollen denies pain. Transition of care: patient was not received from another setting of care. Onset of symptoms was December 23, 2018. Risk Assessment: Do you want to hurt yourself or someone else? Patient reports no desire to harm self or others. Initial Sepsis Screen: Does the patient meet any 2 criteria? No. Patient's initial sepsis screen is negative. Does the patient have a suspected source of infection? No. Patient's initial sepsis screen is negative. Care prior to arrival: None. 22:19 Method Of Arrival: Ambulatory bb 22:19 Acuity: EMMA 3 bb Historical: - Allergies: 22:22 No Known Allergies; bb - Home Meds: 22:22 lisinopril 20 mg oral tab 1 tab once daily [Active]; atorvastatin Oral [Active]; bb clopidogrel 75 mg oral tab 1 tab once daily [Active]; Furosemide Oral [Active]; - PMHx: 22:22 CVA; Hyperlipidemia; Hypertension; bb - PSHx: 22:22 Hernia repair; bb - Immunization history:: Adult Immunizations up to date. - Social history:: Smoking status: Patient uses tobacco products, smokes one pack cigarettes per day. Patient uses alcohol, claims drinking about a 6 pack/day. - Ebola Screening: : No symptoms or risks identified at this time. Screenin:39 Abuse screen: Denies threats or abuse. Nutritional screening: No deficits noted. tr5 Tuberculosis screening: No symptoms or risk factors identified. Fall Risk None identified. Assessment: 22:39 General: Appears in no apparent distress. Behavior is calm, cooperative, appropriate tr5 for age. Pain: Denies pain. Neuro: Level of Consciousness is awake, alert, obeys commands, Oriented to person, place, time, Interceptor Operator are equal bilaterally Moves all extremities. Gait is steady. Cardiovascular: Heart tones present Capillary refill < 3 seconds Pulses are all present. Edema is 2+ to Left side of face. Respiratory: Airway is patent Respiratory effort is even, unlabored, Respiratory pattern is regular, symmetrical. GI: No signs and/or symptoms were reported involving the gastrointestinal system. : No signs and/or symptoms were reported regarding the genitourinary system. EENT: No signs and/or symptoms were reported regarding the EENT system. Derm: No signs and/or symptoms reported regarding the dermatologic system. Musculoskeletal: No signs and/or symptoms reported regarding the musculoskeletal system. Vital Signs: 22:22 BP 148 / 77; Pulse 77; Resp 20 S; Temp 98.5(O); Pulse Ox 99% on R/A; Weight 95.25 kg bb (R); Height 5 ft. 4 in. (162.56 cm) (R); Pain 0/10; 23:45 BP 127 / 61; Pulse 70; Resp 15; Pulse Ox 100% on R/A; tr5 22:22 Body Mass Index 36.05 (95.25 kg, 162.56 cm) bb Cyndy Coma Score: 22:26 Eye Response: spontaneous(4). Verbal Response: oriented(5). Motor Response: obeys snw commands(6). Total: 15. ED Course: 22:04 Patient arrived in ED. cl3 22:09 Reuben Ling, RN is Primary Nurse. tr5 22:16 Radha Frazier FNP-C is PHCP. snw 22:16 Albino Trammell MD is Attending Physician. snw 22:21 Triage completed. bb 22:22 Arm band placed on Patient placed in an exam room, on a stretcher, on pulse oximetry. bb Family accompanied patient. 22:39 Bed in low position. Call light in reach. Side rails up X 1. tr5 12/24 00:15 No provider procedures requiring assistance completed. Patient did not have IV access tr5 during this emergency room visit. Administered Medications: 12/23 22:37 Drug: predniSONE 40 mg Route: PO; tr5 22:37 Drug: Benadryl 50 mg Route: IM; Site: left ventrogluteal; tr5 22:37 Drug: Pepcid 20 mg Route: PO; tr5 Outcome: 12/24 00:06 Discharge ordered by . snw 00:15 Discharged to home ambulatory. tr5 00:15 Condition: stable 00:15 Discharge instructions given to patient, family, Instructed on discharge instructions, follow up and referral plans. medication usage, Demonstrated understanding of instructions, follow-up care, medications, Prescriptions given X 4. 00:17 Patient left the ED. tr5 Signatures: Radha Frazier, MARKETING CONSULTANT-C MARKETING CONSULTANT-Csnw Mer Leggett RN RN Reuben Birmingham RN RN tr5 Katie Aviles cl3
--- NOTE | 2018-12-24 00:09 | EDPHYS ---
Physician Documentation [facility] Name: Maik German Age: 68 yrs Sex: Male : 1950 Arrival Date: 12/23/2018 Time: 22:04 Bed 27 Private MD: ED Physician Albino Trammell HPI: 12/23 22:26 This 68 yrs old Male presents to ER via Ambulatory with complaints of Facial snw Swelling. 22:26 The patient or guardian reports swelling. The complaints affect the left cheek and left snw jaw. Context of injury: The problem was sustained at home, resulted from unknown, pt states he went to sleep and awoke with significant left facial edema. Onset: The symptoms/episode began/occurred suddenly. Associated signs and symptoms: The patient has no apparent associated signs or symptoms. Severity of symptoms: At their worst the symptoms were moderate. The patient has not experienced similar symptoms in the past. It is unknown whether or not the patient has recently seen a physician. Historical: - Allergies: 22:22 No Known Allergies; bb - Home Meds: 22:22 lisinopril 20 mg oral tab 1 tab once daily [Active]; atorvastatin Oral [Active]; bb clopidogrel 75 mg oral tab 1 tab once daily [Active]; Furosemide Oral [Active]; - PMHx: 22:22 CVA; Hyperlipidemia; Hypertension; bb - PSHx: 22:22 Hernia repair; bb - Immunization history:: Adult Immunizations up to date. - Social history:: Smoking status: Patient uses tobacco products, smokes one pack cigarettes per day. Patient uses alcohol, claims drinking about a 6 pack/day. - Ebola Screening: : No symptoms or risks identified at this time. ROS: 22:25 Constitutional: Negative for fever, chills, and weight loss, Eyes: Negative for injury, snw pain, redness, and discharge, Neck: Negative for injury, pain, and swelling, Cardiovascular: Negative for chest pain, palpitations, and edema, Respiratory: Negative for shortness of breath, cough, wheezing, and pleuritic chest pain, Abdomen/GI: Negative for abdominal pain, nausea, vomiting, diarrhea, and constipation, Back: Negative for injury and pain, : Negative for injury, bleeding, discharge, and swelling, MS/Extremity: Negative for injury and deformity, Skin: Negative for injury, rash, and discoloration, Neuro: Negative for headache, weakness, numbness, tingling, and seizure, Psych: Negative for depression, anxiety, suicide ideation, homicidal ideation, and hallucinations. 22:25 ENT: Positive for left facial swelling. Exam: 22:23 Constitutional: This is a well developed, well nourished patient who is awake, alert, snw and in no acute distress. + ETOH Eyes: Pupils equal round and reactive to light, extra-ocular motions intact. Lids and lashes normal. Conjunctiva and sclera are non-icteric and not injected. Cornea within normal limits. Periorbital areas with no swelling, redness, or edema. ENT: Nares patent. No nasal discharge, no septal abnormalities noted. Tympanic membranes are normal and external auditory canals are clear. Oropharynx with no redness, swelling, or masses, exudates, or evidence of obstruction, uvula midline. Mucous membranes moist. Neck: Trachea midline, no thyromegaly or masses palpated, and no cervical lymphadenopathy. Supple, full range of motion without nuchal rigidity, or vertebral point tenderness. No Meningismus. Chest/axilla: Normal chest wall appearance and motion. Nontender with no deformity. No lesions are appreciated. Cardiovascular: Regular rate and rhythm with a normal S1 and S2. No gallops, murmurs, or rubs. Normal PMI, no JVD. No pulse deficits. Respiratory: Lungs have equal breath sounds bilaterally, wheezes to auscultation. No rales, rhonchi noted. MIld increased work of breathing, no retractions or nasal flaring. Abdomen/GI: Soft, non-tender, with normal bowel sounds. No distension or tympany. No guarding or rebound. No evidence of tenderness throughout. Back: No spinal tenderness. No costovertebral tenderness. Full range of motion. Skin: Warm, dry with normal turgor. Normal color with no rashes, no lesions, and no evidence of cellulitis. MS/ Extremity: Pulses equal, no cyanosis. Neurovascular intact. Full, normal range of motion. Neuro: Awake and alert, GCS 15, oriented to person, place, time, and situation. Cranial nerves II-XII grossly intact. Motor strength 5/5 in all extremities. Sensory grossly intact. Cerebellar exam normal. Normal gait. Psych: Awake, alert, with orientation to person, place and time. Behavior, mood, and affect are within normal limits. 22:23 Head/face: Noted is swelling, that is moderate, of the left zygomatic area and left cheek. Vital Signs: 22:22 BP 148 / 77; Pulse 77; Resp 20 S; Temp 98.5(O); Pulse Ox 99% on R/A; Weight 95.25 kg bb (R); Height 5 ft. 4 in. (162.56 cm) (R); Pain 0/10; 23:45 BP 127 / 61; Pulse 70; Resp 15; Pulse Ox 100% on R/A; tr5 22:22 Body Mass Index 36.05 (95.25 kg, 162.56 cm) bb [place] Coma Score: 22:26 Eye Response: spontaneous(4). Verbal Response: oriented(5). Motor Response: obeys snw commands(6). Total: 15. MDM: 22:17 Patient medically screened. snw 12/24 00:08 Data reviewed: vital signs, nurses notes. Data interpreted: Pulse oximetry: on room air snw is 100 %. Interpretation: normal. Counseling: I had a detailed discussion with the patient and/or guardian regarding: the historical points, exam findings, and any diagnostic results supporting the discharge/admit diagnosis, the need for outpatient follow up, to return to the emergency department if symptoms worsen or persist or if there are any questions or concerns that arise at home. Response to treatment: the patient's symptoms have mildly improved after treatment. Special discussion: Based on the history and exam findings, there is no indication for further emergent testing or inpatient evaluation. I discussed with the patient/guardian the need to see the primary care provider for further evaluation of the symptoms. 12/23 22:23 Order name: Misc. Order: stop Lisinopril; Complete Time: 22:28 snw Administered Medications: 12/23 22:37 Drug: predniSONE 40 mg Route: PO; tr5 22:37 Drug: Benadryl 50 mg Route: IM; Site: left ventrogluteal; tr5 22:37 Drug: Pepcid 20 mg Route: PO; tr5 Disposition: 12/24 04:21 Co-signature as Attending Physician, Albino Trammell MD I agree with the assessment and zenaida plan of care. Disposition: 11/02/19 00:06 Discharged to Home. Impression: Adverse effect of other antihypertensive drugs, Angioedema. - Condition is Stable. - Discharge Instructions: Angioedema, Ventral Hernia, Managing Your Hypertension. - Prescriptions for Clonidine 0.1 mg Oral Tablet - take 1 tablet by ORAL route every 12 hours; 60 tablet. Zyrtec 10 mg Oral Tablet - take 1 tablet by ORAL route once daily As needed; 20 tablet. Prednisone 20 mg Oral Tablet - take 2 tablet by ORAL route once daily for 5 days; 10 tablet. Pepcid 20 mg Oral Tablet - take 1 tablet by ORAL route once daily; 20 tablet. - Thank You Letter, Antibiotic Education, Prescription Opioid Use, Medication Reconciliation Form, SBAR form form. - Follow up: Emergency Department; When: As needed; Reason: Worsening of condition. Follow up: Private Physician; When: 48 Hours; Reason: Recheck today's complaints, Continuance of care, Re-evaluation by your physician. - Notes: Do not take Lisinopril. Signatures: Albino Trammell MD MD cha Therrien, Shelly, [employer]-C [employer]-Csnw Mer Leggett, RN RN Reuben Birmingham RN RN tr5 Corrections: (The following items were deleted from the chart) 00:17 00:06 12/24/2018 00:06 Discharged to Home. Impression: Adverse effect of other tr5 antihypertensive drugs; Angioedema. Condition is Stable. Forms are Medication Reconciliation Form, SBAR form, Thank You Letter, Antibiotic Education, Prescription Opioid Use. Follow up: Emergency Department; When: As needed; Reason: Worsening of condition. Follow up: Private Physician; When: 48 Hours; Reason: Recheck today's complaints, Continuance of care, Re-evaluation by your physician. snw
[2018-12-24 00:49] VITALS: BP 127/61; TEMP 98.5; O2SAT 100
== END 2018-12-24 00:17 | disposition home or self-care (01) ==
LOC: ER 22:02
DX: R22.0 Localized swelling, mass and lump, head (principal); T46.5X5A Adverse effect of other antihypertensive drugs, initial encounter; T78.3XXA Angioneurotic edema, initial encounter; Y92.9 Unspecified place or not applicable; I10 Essential (primary) hypertension; E78.5 Hyperlipidemia, unspecified; F17.210 Nicotine dependence, cigarettes, uncomplicated
CPT/HCPCS: 96372; 99283; J1200; J7512

== ENCOUNTER 2019-03-16 11:59 | Emergency (ER) | payer OTHER ==
--- OUTSIDE RECORDS SUMMARY | 2019-03-16 12:02 | XMS REPORT ---
:1950 [facility] Address [address] [place] [address] [address] Care Team Providers Name Role Phone Unavailable Unavailable Unavailable Problems This patient has no known problems. Allergies, Adverse Reactions, Alerts This patient has no known allergies or adverse reactions. Medications This patient has no known medications. Encounters Start End Encounter Admission Attending Care Care Encounter Date/Time Date/Time Type Type Clinicians Facility Department ID 2016-09-17 2016-09-17 Outpatient [facility] [id number] 07:31:53 07:31:53 2016-09-03 2016-09-03 Emergency [facility] [id number] 14:03:00 14:03:00 2016-07-16 2016-07-16 Outpatient [facility] [id number] 00:00:00 00:00:00
--- NOTE | 2019-03-16 13:37 | RAD REPORT ---
EXAM DESCRIPTION: US - Extrem Venous W Compress Wilmar - 03/16/2019 1:24 pm CLINICAL HISTORY: Leg pain and swelling COMPARISON: None. TECHNIQUE: Real-time sonographic evaluation of the bilateral lower extremity common femoral, superfi cial femoral, popliteal and posterior tibial veins was performed. FINDINGS: Normal compressibility, flow augmentation, phasic flow and spontaneous flow are identified in the left and right lower extremity common femoral, superficial femoral, popliteal and posterior t ibial veins. No intraluminal filling defects seen. IMPRESSION: No DVT in either lower extremity.
[2019-03-16 13:54] LABS: Absolute Lymphocytes (CBC) 1.4 K/uL (0.7-4.9); Basophils % 0.9 % (0-1.3); Hematocrit 44.8 % (39.6-49.0); MPV 7.4 fL (7.6-11.3)
[2019-03-16 13:58] LABS: Protime INR 1.18
--- NOTE | 2019-03-16 14:19 | RAD REPORT ---
EXAM DESCRIPTION: Damaso Single View03/16/2019 1:50 pm CLINICAL HISTORY: Hypertension/swelling COMPARISON: 2017 FINDINGS: The lungs appear clear of acute infiltrate. The heart is normal size IMPRESSION: No acute abnormalities displayed
[2019-03-16 14:42] LABS: ALT/SGPT 72 U/L (12-78); AST/SGOT 117 U/L (15-37); Albumin 3.1 g/dL (3.4-5.0); Alkaline Phosphatase 84 U/L (45-117); BUN Blood Urea Nitrogen 3 mg/dL (7-18); Bicarbonate 25 mmol/L (21-32); Bilirubin Direct 0.3 mg/dL (0-0.2); Bilirubin Total 0.8 mg/dL (0.2-1.0); Glucose Level 84 mg/dL (74-106); Magnesium 1.9 mg/dL (1.8-2.4); NT PRO-BNP 56 pg/mL (<125); Potassium 3.5 mmol/L (3.5-5.1); Protein, Total 7.9 g/dL (6.4-8.2); Sodium Level 126 mmol/L (136-145); Troponin (Emerg Dept Use Only) < 0.02 ng/mL (0.0-0.045)
--- NOTE | 2019-03-16 15:29 | EDPHYS ---
Physician Documentation [facility] Name: Maik German Age: 68 yrs Sex: Male : 1950 Arrival Date: 03/16/2019 Time: 12:02 Bed 5 Private MD: None, None ED Physician Harish Sam HPI: 03/16 12:55 This 68 yrs old Male presents to ER via Wheelchair with complaints of Leg cp Swelling. 12:55 The patient presents with pain, swelling, tenderness, erythema. The complaints affect cp the right lower leg. Onset: The symptoms/episode began/occurred gradually. Associated signs and symptoms: Pertinent positives: calf tenderness, of the right lower leg, Pertinent negatives fever. 12:55 Patient reports chronic right side weakness from previous CVA, no change today. cp Historical: - Allergies: 12:08 Lisinopril; iw - Home Meds: 13:07 furosemide 40 mg oral tab 1 tab once daily [Active]; atorvastatin 80 mg oral tab 1 tab em once daily [Active]; clopidogrel 75 mg Oral tab 1 tab once daily [Active]; clonidine HCl 0.1 mg Oral tab [Active]; - PMHx: 12:08 CVA; Hyperlipidemia; Hypertension; Cellulitis; iw - PSHx: 12:08 Hernia repair; iw - Social history:: Smoking status: Patient reports the use of cigarette tobacco products, smokes one pack cigarettes per day. Patient uses alcohol, on a daily basis. 12 pack. - Ebola Screening: : Patient negative for fever greater than or equal to 101.5 degrees Fahrenheit, and additional compatible Ebola Virus Disease symptoms Patient denies exposure to infectious person Patient denies travel to an Ebola-affected area in the 21 days before illness onset No symptoms or risks identified at this time. ROS: 13:00 Constitutional: Negative for body aches, chills, fever. cp 13:00 Eyes: Negative for injury, pain, redness, and discharge. cp 13:00 ENT: Negative for drainage from ear(s), ear pain, sore throat, difficulty swallowing, difficulty handling secretions. 13:00 Cardiovascular: Positive for edema, Negative for chest pain. 13:00 Respiratory: Negative for cough, shortness of breath, wheezing. 13:00 Abdomen/GI: Negative for abdominal pain, vomiting, diarrhea, constipation, black/tarry stool, rectal bleeding. 13:00 Back: Negative for pain at rest, pain with movement. 13:00 Neuro: Negative for altered mental status, headache, syncope, increased weakness. 13:00 All other systems are negative. Exam: 13:10 Constitutional: The patient appears in no acute distress, alert, awake, cp non-diaphoretic, non-toxic, well developed, well nourished, obese. 13:10 Head/Face: Normocephalic, atraumatic. cp 13:10 Eyes: Periorbital structures: appear normal, Pupils: equal, round, and reactive to light and accomodation, Extraocular movements: intact throughout, Conjunctiva: normal, no exudate, no injection, Sclera: no appreciated abnormality, Lids and lashes: appear normal, bilaterally. 13:10 ENT: External ear(s): are unremarkable, Nose: is normal, Mouth: Lips: moist, Oral mucosa: pink and intact, moist, Posterior pharynx: is normal, airway is patent, no erythema, no exudate. 13:10 Chest/axilla: Inspection: normal, Palpation: is normal, no crepitus, no tenderness. 13:10 Cardiovascular: Rate: normal, Rhythm: regular, Edema: ankle edema, that is moderate, JVD: is not appreciated. 13:10 Respiratory: the patient does not display signs of respiratory distress, Respirations: normal, no use of accessory muscles, labored breathing, is not present, Breath sounds: are clear throughout, no decreased breath sounds, no stridor, no wheezing. 13:10 Abdomen/GI: Inspection: distension, that is mild, obese Bowel sounds: active, all quadrants, Palpation: abdomen is soft and non-tender, in all quadrants, rebound tenderness, is not appreciated, voluntary guarding, is not appreciated, involuntary guarding, is not appreciated. 13:10 Skin: cellulitis, that is mild, irregular, on the right lower leg. 13:10 Neuro: Orientation: to person, place \T\ time. Mentation: is normal, Motor: moves all fours, residual right arm weakness from previous CVA. 14:45 ECG was reviewed by the Attending Physician. cp Vital Signs: 12:08 BP 150 / 115; Pulse 74; Resp 18 S; Temp 97.5; Pulse Ox 99% on R/A; Weight 97.52 kg; iw 12:38 BP 158 / 74; Pulse 81; Resp 18; Pulse Ox 100% on R/A; Pain 7/10; em 14:30 BP 169 / 88; Pulse 78; Resp 18; Pulse Ox 99% on R/A; em 15:30 BP 171 / 74; Pulse 77; Resp 18; Pulse Ox 99% on R/A; em MDM: 12:10 Patient medically screened. cp 13:00 Differential diagnosis: DVT, sepsis, cellulitis, abscess, dependent edema, ascites, cp liver failure. 15:28 Data reviewed: vital signs, nurses notes, lab test result(s), EKG, radiologic studies, cp plain films, ultrasound. 15:28 Test interpretation: by ED physician or midlevel provider: ECG, plain radiologic cp studies, chest xray negative for infiltrates. Counseling: I had a detailed discussion with the patient and/or guardian regarding: the historical points, exam findings, and any diagnostic results supporting the discharge/admit diagnosis, the presence of at least one elevated blood pressure reading (>120/80) during this emergency department visit, lab results, radiology results, the need for outpatient follow up, a family practitioner, to return to the emergency department if symptoms worsen or persist or if there are any questions or concerns that arise at home. 03/16 12:51 Order name: Basic Metabolic Panel; Complete Time: 15:08 cp 03/16 15:08 Interpretation: Normal except: NA 126; CL 93; BUN 3. cp 03/16 12:51 Order name: CBC with Diff; Complete Time: 15:08 cp 03/16 15:09 Interpretation: Normal except: MPV 7.4; LYM% 15.0. cp 03/16 12:51 Order name: LFT's; Complete Time: 15:08 cp 03/16 15:09 Interpretation: Normal except: AST 117; BILID 0.3; ALB 3.1; GLOB 4.8; A/G 0.6. cp 03/16 12:51 Order name: Magnesium; Complete Time: 15:08 cp 03/16 12:51 Order name: NT PRO-BNP; Complete Time: 15:08 cp 03/16 12:51 Order name: PT-INR; Complete Time: 15:08 cp 03/16 12:51 Order name: Troponin (emerg Dept Use Only); Complete Time: 15:08 cp 03/16 12:51 Order name: XRAY Chest (1 view); Complete Time: 15:08 cp 03/16 12:51 Order name: EKG; Complete Time: 12:52 cp 03/16 12:51 Order name: Cardiac monitoring; Complete Time: 12:53 cp 03/16 12:51 Order name: EKG - Nurse/Tech; Complete Time: 13:41 cp 03/16 12:51 Order name: US Extremity Venous W Compression [place]; Complete Time: 15:08 cp 03/16 12:51 Order name: IV Saline Lock; Complete Time: 13:41 cp 03/16 12:51 Order name: Labs collected and sent; Complete Time: 12:53 cp 03/16 12:51 Order name: O2 Per Protocol; Complete Time: 12:53 cp 03/16 12:51 Order name: O2 Sat Monitoring; Complete Time: 12:53 cp 03/16 13:59 Order name: Labs - recollect needed: basic only; Complete Time: 14:19 sg EC:45 Rate is 72 beats/min. Rhythm is regular. IA interval is normal. QRS interval is normal. cp QT interval is normal. Interpreted by me. Reviewed by me. Administered Medications: 15:50 Drug: Doxycycline 100 mg Route: PO; em 16:00 Follow up: Response: Medication administered at discharge. em 15:50 Drug: Bactrim 160 mg-800 mg (DS) 160 mg Route: PO; em 16:01 Follow up: Response: Medication administered at discharge. em Disposition: 18:38 Co-signature as Attending Physician, Harish Sam MD. rn Disposition: 03/16/19 15:29 Discharged to Home. Impression: Edema, unspecified, Cellulitis of right lower limb. - Condition is Stable. - Discharge Instructions: Cellulitis, Adult, Edema. - Prescriptions for Doxycycline Hyclate 100 mg Oral Tablet - take 1 tablet by ORAL route every 12 hours; 20 tablet. Bactrim DS 800- 160 mg Oral Tablet - take 1 tablet by ORAL route every 12 hours for 10 days; 20 tablet. - Medication Reconciliation Form, Thank You Letter, Antibiotic Education, Prescription Opioid Use form. - Follow up: Private Physician; When: 2 - 3 days; Reason: Recheck today's complaints. - Problem is new. - Symptoms have improved. Signatures: Dispatcher [employer] EDEphraim Rossi, RN RN Les Back, RN RN Ching Gee RN RN Harish Sam MD MD rn Page, Corey, PA PA cp Corrections: (The following items were deleted from the chart) 12:08 12:08 Allergies: No Known Allergies; [facility] 16:04 15:29 03/16/2019 15:29 Discharged to Home. Impression: Edema, unspecified; Cellulitis em of right lower limb. Condition is Stable. Forms are Medication Reconciliation Form, Thank You Letter, Antibiotic Education, Prescription Opioid Use. Follow up: Private Physician; When: 2 - 3 days; Reason: Recheck today's complaints. Problem is new. Symptoms have improved. cp
--- NOTE | 2019-03-16 15:29 | ER ---
Nurse's Notes [facility] Name: Maik German Age: 68 yrs Sex: Male : 1950 Arrival Date: 03/16/2019 Time: 12:02 Bed 5 Private MD: None, None Diagnosis: Edema, unspecified;Cellulitis of right lower limb Presentation: 03/16 12:06 Presenting complaint: Patient states: cellulitis RLE, hx of cellulitis. Transition of iw care: patient was not received from another setting of care. Onset of symptoms was February 2019. Risk Assessment: Do you want to hurt yourself or someone else?. Initial Sepsis Screen: Does the patient meet any 2 criteria? No. Patient's initial sepsis screen is negative. Does the patient have a suspected source of infection? No. Patient's initial sepsis screen is negative. Care prior to arrival: None. 12:06 Method Of Arrival: Wheelchair iw 12:06 Acuity: EMMA 3 iw Historical: - Allergies: 12:08 Lisinopril; iw - Home Meds: 13:07 furosemide 40 mg oral tab 1 tab once daily [Active]; atorvastatin 80 mg oral tab 1 tab em once daily [Active]; clopidogrel 75 mg Oral tab 1 tab once daily [Active]; clonidine HCl 0.1 mg Oral tab [Active]; - PMHx: 12:08 CVA; Hyperlipidemia; Hypertension; Cellulitis; iw - PSHx: 12:08 Hernia repair; iw - Social history:: Smoking status: Patient reports the use of cigarette tobacco products, smokes one pack cigarettes per day. Patient uses alcohol, on a daily basis. 12 pack. - Ebola Screening: : Patient negative for fever greater than or equal to 101.5 degrees Fahrenheit, and additional compatible Ebola Virus Disease symptoms Patient denies exposure to infectious person Patient denies travel to an Ebola-affected area in the 21 days before illness onset No symptoms or risks identified at this time. Screenin:43 Abuse screen: Denies threats or abuse. Denies injuries from another. Nutritional hb screening: No deficits noted. Tuberculosis screening: No symptoms or risk factors identified. Fall Risk None identified. Assessment: 12:35 General: Appears in no apparent distress. comfortable, Behavior is calm, cooperative, em Denies fever. Pain: Complains of pain in right fuentes Pain currently is 7 out of 10 on a pain scale. Pain began "several weeks ago". Neuro: Level of Consciousness is awake, alert, obeys commands, Oriented to person, place, time, situation, Appropriate for age Turkey Picker are equal bilaterally. Cardiovascular: Capillary refill < 3 seconds Patient's skin is warm and dry. Pulses are palpable in right dorsalis pedis artery and left dorsalis pedis artery are 1+ in right dorsalis pedis artery and left dorsalis pedis artery. Respiratory: Airway is patent Respiratory effort is even, unlabored, Respiratory pattern is regular, symmetrical. GI: Patient currently denies nausea, vomiting. : Denies burning with urination. Derm: Skin is intact, Skin is pink, warm \\T\\ dry. redness and swelling noted to right leg, hot to touch, reports hx of cellulitis. 13:39 Reassessment: Patient appears in no apparent distress at this time. Patient and/or em family updated on plan of care and expected duration. Pain level reassessed. Patient is alert, oriented x 3, equal unlabored respirations, skin warm/dry/pink. 15:15 Reassessment: Patient appears in no apparent distress at this time. Patient and/or hb family updated on plan of care and expected duration. Pain level reassessed. Patient is alert, oriented x 3, equal unlabored respirations, skin warm/dry/pink. Vital Signs: 12:08 BP 150 / 115; Pulse 74; Resp 18 S; Temp 97.5; Pulse Ox 99% on R/A; Weight 97.52 kg; iw 12:38 BP 158 / 74; Pulse 81; Resp 18; Pulse Ox 100% on R/A; Pain 7/10; em 14:30 BP 169 / 88; Pulse 78; Resp 18; Pulse Ox 99% on R/A; em 15:30 BP 171 / 74; Pulse 77; Resp 18; Pulse Ox 99% on R/A; em ED Course: 12:02 Patient arrived in ED. mr 12:02 None, None is Private Physician. mr 12:07 Triage completed. iw 12:10 Albino Duval PA is PHCP. cp 12:10 Harish Sam MD is Attending Physician. cp 12:26 Arm band placed on. iw 12:38 Les Back, AMALIA is Primary Nurse. em 12:43 Patient has correct armband on for positive identification. Placed in gown. Bed in low hb position. Call light in reach. Side rails up X 1. 13:25 US Extremity Venous W Compression [place] In Process Unspecified. EDMS 13:37 Initial lab(s) drawn, by me, sent to lab. Inserted saline lock: 20 gauge in right dh3 antecubital area, using aseptic technique. Blood collected. 13:51 XRAY Chest (1 view) In Process Unspecified. EDMS 14:19 Lab(s) recollected, by me, sent to lab. em 14:56 EKG done, by line service technician. reviewed by Albino DOMINGUEZ. at1 16:01 No provider procedures requiring assistance completed. IV discontinued, intact, em bleeding controlled, No redness/swelling at site. Pressure dressing applied. Administered Medications: 15:50 Drug: Doxycycline 100 mg Route: PO; em 16:00 Follow up: Response: Medication administered at discharge. em 15:50 Drug: Bactrim 160 mg-800 mg (DS) 160 mg Route: PO; em 16:01 Follow up: Response: Medication administered at discharge. em Outcome: 15:29 Discharge ordered by MD. cp 16:01 Discharged to home via wheelchair, with family. em 16:01 Condition: good 16:01 Discharge instructions given to patient, family, Instructed on discharge instructions, follow up and referral plans. medication usage, Demonstrated understanding of instructions, follow-up care, medications, Prescriptions given X 2. 16:04 Patient left the ED. em Signatures: Dispatcher [employer] [facility] Connie German Les Back RN RN em Williams, Irene, RN RN iw Sparkle Ledesma, coal digger EKG Tat1 Albino Duval PA PA cp Baxter, Heather, RN RN hb Herrera, Deanna 3 Corrections: (The following items were deleted from the chart) 12:08 12:08 Allergies: No Known Allergies; iw iw 12:09 12:08 BP 150 / 115; Pulse 7bpm; Resp 18bpm; Spontaneous; Pulse Ox 99% RA; Temp 97.5F; iw 97.52 kg; iw
[2019-03-16] MEDS ORDERED: DOXYCYCLINE 100 MG CAP PO ONE (15:49)
[2019-03-16] MEDS ORDERED: SMZ./TMP. 800/160 MG TABLET ONE (15:49)
[2019-03-16 16:30] VITALS: TEMP 97.5
[2019-03-16 16:32] VITALS: O2SAT 99
[2019-03-16 16:33] VITALS: BP 171/74
--- NOTE | 2019-03-17 08:36 | EKG ---
Test Date: 2019-03-16 Test Time: 14:36:50 Kitchen Supervisor: ALVIN MEASUREMENT RESULTS: Intervals: Rate: 72 ME: 150 QRSD: 80 QT: 410 QTc: 448 [place]: P: 21 ME: 150 QRS: 13 T: 27 INTERPRETIVE STATEMENTS: Normal sinus rhythm Moderate voltage criteria for LVH, may be normal variant Borderline ECG Compared to ECG 12/21/2017 16:19:22 Left ventricular hypertrophy now present Electronically Signed On 03-17-19 08:35:20 CONTINUOUS LOFT OPERATOR by Mike Church
== END 2019-03-16 16:04 | disposition home or self-care (01) ==
LOC: ER 11:59
DX: L03.115 Cellulitis of right lower limb (principal); I10 Essential (primary) hypertension; E78.5 Hyperlipidemia, unspecified; F17.210 Nicotine dependence, cigarettes, uncomplicated; Z88.8 Allergy status to other drugs, medicaments and biological substances
CPT/HCPCS: 36415; 71045; 80048; 80076; 83735; 83880; 84484; 85025; 85610; 93005; 93970; 99284

== ENCOUNTER 2019-11-18 09:28 | Emergency (ER) | payer OTHER ==
[~2019-11-18 09:28] MED LIST: NA CHLORIDE 0.9% 1,000 ML ONE; NS 0.9% VIAL 30 ML ONE
[2019-11-18] MEDS ORDERED: TETANUS & DIPHTHERIA TOX,ADULT 0.5 ML VIAL ONE (10:55)
--- NOTE | 2019-11-18 11:13 | RAD REPORT ---
EXAM DESCRIPTION: CT - Head C Spine Mpr Wo Con - 11/18/2019 10:27 am CLINICAL HISTORY: Head and neck injury status post fall. Head and neck pain COMPARISON: None. TECHNIQUE: Computed axial tomography of the head and cervical spine was obtained. Sagittal and coronal reconstruction was performed. All CT scans are performed using dose optimization technique as appropriate and may include automated exposure control or mA/KV adjustment according to patient size. FINDINGS: 4 centimeter low-density area within the left occipital/parietal lobe. Smaller low-density areas within the left frontal lobe. All of these probably are old infarctions An intracranial bleed is not seen. The ventricles are normal in caliber. An extra-axial fluid collect ion is not noted.Fluid within the visualized sinuses and mastoids is not seen Mild posterior subluxation C5 on C6 and C6 on C7. No fracture is seen. Spondylosis involves mid and distal cervical spine. 5 millimeter nonspecific lesion C5. IMPRESSION: No acute intracranial abnormality is seen. A cervical fracture is not visualized. If the patient continues to have symptoms to suggest intracra nial /spinal cord pathology then MRI would be recommended
--- NOTE | 2019-11-18 11:42 | ER ---
Nurse's Notes [facility] Name: Maik German Age: 69 yrs Sex: Male : 1950 Arrival Date: 11/18/2019 Time: 09:32 Bed 19 Private MD: Juliocesar Thomas R Diagnosis: Other slipping, tripping and stumbling and falls;Superficial injury of head;Facial Abrasions Presentation: 11/17 10:03 Chief complaint: Patient states: Woke up at approx 0800 and got up to use restroom, ph fell forward from standing position landing face first on carpet, abrasions to nose and forehead, denies LOC or other injury, does take blood thinner. Care prior to arrival: None. Mechanism of Injury: Fall from standing position. Trauma event details: Injury occurred in the [facility], Injury occurred: at home. Injury occurred: November 18, 2019 Injury occurred at: 08:00. 10:03 Acuity: EMMA 2 ph 10:03 Method Of Arrival: Wheelchair ph 10:11 Coronavirus screen: Client denies travel out of the [place] in the last 14 days. At this ph time, the client does not indicate any symptoms associated with coronavirus-19. Ebola Screen: No symptoms or risks identified at this time. Initial Sepsis Screen: Does the patient meet any 2 criteria? No. Patient's initial sepsis screen is negative. Does the patient have a suspected source of infection? No. Patient's initial sepsis screen is negative. Risk Assessment: Do you want to hurt yourself or someone else? Patient reports no desire to harm self or others. Onset of symptoms was November 18, 2019. Trauma Activation: Alert Physician: ED Physician; Name: Lalo; Notified At: 09:52; Arrived At: 09:53 Physician: General Surgeon; Name: ; Notified At: 09:52; Arrived At: Physician: Radiology; Name: ; Notified At: 09:52; Arrived At: Physician: Respiratory; Name: ; Notified At: 09:52; Arrived At: Physician: Lab; Name: ; Notified At: 09:52; Arrived At: Historical: - Allergies: 10:10 Lisinopril; ph - Home Meds: 10:10 clopidogrel 75 mg Oral tab 1 tab once daily [Active]; atorvastatin 80 mg Oral tab 1 tab ph twice a day [Active]; furosemide 40 mg Oral tab 1 tab once daily [Active]; clonidine HCl 0.1 mg Oral tab 1 tab 2 times per day [Active]; - PMHx: 10:10 Cellulitis; CVA; Hyperlipidemia; Hypertension; ph - PSHx: 10:10 Hernia repair; ph - Immunization history: Last tetanus immunization: unknown. - Social history:: Smoking status: Patient reports the use of cigarette tobacco products, smokes 1.5 packs per day. Screenin:11 Abuse screen: Denies threats or abuse. Denies injuries from another. Nutritional ph screening: No deficits noted. Tuberculosis screening: No symptoms or risk factors identified. Fall Risk None identified. Primary Survey: 10:14 NO uncontrolled hemorrhage observed. A: No supplemental oxygen in use on arrival. Oral ph cavity: clear, Trachea midline. Breathing/Chest: Respiratory pattern: regular, Respiratory effort: spontaneous, unlabored. Circulation: Skin color: pink, Skin temperature: warm, dry. Disability Alert. Exposure/Environment: There is no evidence of uncontrolled external bleeding. Obvious injury(ies) are noted at this time: abrasion. 12:20 Reassessment Airway Airway Patent Breathing/Chest Respiratory pattern Regular ph Respiratory effort Spontaneous Unlabored Disability Alert. Assessment: 10:05 General: Appears in no apparent distress. comfortable, well groomed, Behavior is calm, ph cooperative, appropriate for age. Pain: Complains of pain in face. Neuro: Level of Consciousness is awake, alert, obeys commands, Oriented to person, place, time, situation, Moves all extremities. Speech is normal. Cardiovascular: Capillary refill < 3 seconds in bilateral fingers Patient's skin is warm and dry. Respiratory: Airway is patent Respiratory effort is even, unlabored. GI: No signs and/or symptoms were reported involving the gastrointestinal system. Patient currently denies nausea, vomiting. Derm: Skin is healthy with good turgor, Skin is pink, warm \T\ dry. Derm: Bruising that is dark purple, on right arm and left arm. Musculoskeletal: Circulation, motion, and sensation intact. Range of motion: intact in all extremities. Injury Description: Abrasion sustained to nose and left side of forehead. 10:16 Reassessment: Patient appears in no apparent distress at this time. Patient and/or ph family updated on plan of care and expected duration. Pain level reassessed. Patient is alert, oriented x 3, equal unlabored respirations, skin warm/dry/pink. Pt taken to CT. 11:32 Reassessment: Patient appears in no apparent distress at this time. Patient and/or ph family updated on plan of care and expected duration. Pain level reassessed. Patient is alert, oriented x 3, equal unlabored respirations, skin warm/dry/pink. Vital Signs: 10:11 BP 113 / 66; Pulse 82; Resp 18; Temp 98.3; Pulse Ox 100% on R/A; Weight 97.52 kg; ph Height 5 ft. 4 in. (162.56 cm); 11:30 BP 118 / 64; Pulse 76; Resp 18; Temp 97.8; Pulse Ox 99% on R/A; ph 10:11 Body Mass Index 36.90 (97.52 kg, 162.56 cm) ph Cyndy Coma Score: 10:12 Eye Response: spontaneous(4). Verbal Response: oriented(5). Motor Response: obeys ph commands(6). Total: 15. 11:30 Eye Response: spontaneous(4). Verbal Response: oriented(5). Motor Response: obeys ph commands(6). Total: 15. Trauma Score (Adult): 10:12 Eye Response: spontaneous(1); Verbal Response: oriented(1); Motor Response: obeys ph commands(2); Systolic BP: > 89 mm Hg(4); Respiratory Rate: 10 to 29 per min(4); Cyndy Score: 15; Trauma Score: 12 11:30 Eye Response: spontaneous(1); Verbal Response: oriented(1); Motor Response: obeys ph commands(2); Systolic BP: > 89 mm Hg(4); Respiratory Rate: 10 to 29 per min(4); Cyndy Score: 15; Trauma Score: 12 ED Course: 09:32 Patient arrived in ED. mr 09:32 Juliocesar Thomas MD is Private Physician. mr 09:43 John May MD is Attending Physician. kdr 10:03 Dana Greenfield RN is Primary Nurse. ph 10:05 Triage completed. ph 10:13 Patient has correct armband on for positive identification. Call light in reach. Side ph rails up X 1. Pulse ox on. NIBP on. Door closed. Noise minimized. Warm blanket given. 10:13 Patient maintains SpO2 saturation greater than 95% on room air. Thermoregulation: warm ph blanket given to patient. 10:15 Arm band placed on right wrist. Patient placed in an exam room. ph 10:27 CT Head C Spine In Process Unspecified. EDMS 11:40 Juliocesar Thomas MD is Referral Physician. kdr 12:20 No provider procedures requiring assistance completed. Patient did not have IV access ph during this emergency room visit. Administered Medications: 11:13 Drug: Tetanus-Diphtheria Toxoid Adult 0.5 ml {Construction Services Technician: [employer]. Exp: ph 04/13/2022. Lot #: [id number]. } Route: IM; Site: right deltoid; 11:17 Follow up: Response: No adverse reaction ph Intake: 10:12 PO: 0ml; Total: 0ml. ph 11:30 PO: 0ml; Total: 0ml. ph Output: 11:30 Urine: 0ml; Total: 0ml. ph Outcome: 11:41 Discharge ordered by . kdr 12:28 Patient left the ED. ph 12:28 Discharged to home via wheelchair, with family. ph 12:28 Condition: good 12:28 Discharge instructions given to patient, family, Instructed on discharge instructions, follow up and referral plans. Demonstrated understanding of instructions, follow-up care. 12:28 Patient's length of stay was not longer than 2 hours. ph Signatures: Dispatcher [employer] EDOK John May MD MD kdr Rivera, Mary mr Hall, Patricia, RN RN ph
--- NOTE | 2019-11-18 11:42 | EDPHYS ---
Physician Documentation [facility] Name: Maik German Age: 69 yrs Sex: Male : 1950 Arrival Date: 11/18/2019 Time: 09:32 Bed 19 Private MD: Juliocesar Thomas R ED Physician John May HPI: 11/17 11:42 This 69 yrs old Male presents to ER via Wheelchair with complaints of Fall kdr Injury, Altered Mental Status. 11:47 Details of fall: The patient fell from an upright position, while standing, while kdr walking. Onset: The symptoms/episode began/occurred suddenly, just prior to arrival. Associated injuries: The patient sustained injury to the head, abrasion, pain, Facial abrasions. Severity of symptoms: At their worst the symptoms were mild, in the emergency department the symptoms are unchanged. The patient has not experienced similar symptoms in the past. The patient has not recently seen a physician. Historical: - Allergies: 10:10 Lisinopril; ph - Home Meds: 10:10 clopidogrel 75 mg Oral tab 1 tab once daily [Active]; atorvastatin 80 mg Oral tab 1 tab ph twice a day [Active]; furosemide 40 mg Oral tab 1 tab once daily [Active]; clonidine HCl 0.1 mg Oral tab 1 tab 2 times per day [Active]; - PMHx: 10:10 Cellulitis; CVA; Hyperlipidemia; Hypertension; ph - PSHx: 10:10 Hernia repair; ph - Immunization history: Last tetanus immunization: unknown. - Social history:: Smoking status: Patient reports the use of cigarette tobacco products, smokes 1.5 packs per day. ROS: 11:47 Constitutional: Negative for fever, chills, and weight loss, Eyes: Negative for injury, kdr pain, redness, and discharge, ENT: Negative for injury, pain, and discharge, Neck: Negative for injury, pain, and swelling, Cardiovascular: Negative for chest pain, palpitations, and edema, Respiratory: Negative for shortness of breath, cough, wheezing, and pleuritic chest pain, Abdomen/GI: Negative for abdominal pain, nausea, vomiting, diarrhea, and constipation, Back: Negative for injury and pain, : Negative for injury, bleeding, discharge, and swelling, MS/Extremity: Negative for injury and deformity, Neuro: Negative for headache, weakness, numbness, tingling, and seizure activity. Psych: Negative for depression, anxiety, suicide ideation, homicidal ideation, and hallucinations, Allergy/Immunology: Negative for hives, rash, and allergies, Endocrine: Negative for neck swelling, polydipsia, polyuria, polyphagia, and marked weight changes, Hematologic/Lymphatic: Negative for swollen nodes, abnormal bleeding, and unusual bruising. 11:47 Skin: Positive for abrasion(s), of the forehead and nose. Exam: 11:47 Constitutional: This is a well developed, well nourished patient who is awake, alert, kdr and in no acute distress. Eyes: Pupils equal round and reactive to light, extra-ocular motions intact. Lids and lashes normal. Conjunctiva and sclera are non-icteric and not injected. Cornea within normal limits. Periorbital areas with no swelling, redness, or edema. Neck: Trachea midline, no thyromegaly or masses palpated, and no cervical lymphadenopathy. Supple, full range of motion without nuchal rigidity, or vertebral point tenderness. No Meningismus. Chest/axilla: Normal chest wall appearance and motion. Nontender with no deformity. No lesions are appreciated. Cardiovascular: Regular rate and rhythm with a normal S1 and S2. No gallops, murmurs, or rubs. Normal PMI, no JVD. No pulse deficits. Respiratory: Lungs have equal breath sounds bilaterally, clear to auscultation and percussion. No rales, rhonchi or wheezes noted. No increased work of breathing, no retractions or nasal flaring. Abdomen/GI: Soft, non-tender, with normal bowel sounds. No distension or tympany. No guarding or rebound. No evidence of tenderness throughout. Back: No spinal tenderness. No costovertebral tenderness. Full range of motion. MS/ Extremity: Pulses equal, no cyanosis. Neurovascular intact. Full, normal range of motion. Neuro: Awake and alert, GCS 15, oriented to person, place, time, and situation. Cranial nerves II-XII grossly intact. Motor strength 5/5 in all extremities. Sensory grossly intact. Cerebellar exam normal. Normal gait. Psych: Awake, alert, with orientation to person, place and time. Behavior, mood, and affect are within normal limits. 11:47 Head/face: Noted is abrasion(s), that are mild, of the forehead and nose. Vital Signs: 10:11 BP 113 / 66; Pulse 82; Resp 18; Temp 98.3; Pulse Ox 100% on R/A; Weight 97.52 kg; ph Height 5 ft. 4 in. (162.56 cm); 11:30 BP 118 / 64; Pulse 76; Resp 18; Temp 97.8; Pulse Ox 99% on R/A; ph 10:11 Body Mass Index 36.90 (97.52 kg, 162.56 cm) ph Lancaster Coma Score: 10:12 Eye Response: spontaneous(4). Verbal Response: oriented(5). Motor Response: obeys ph commands(6). Total: 15. 11:30 Eye Response: spontaneous(4). Verbal Response: oriented(5). Motor Response: obeys ph commands(6). Total: 15. Trauma Score (Adult): 10:12 Eye Response: spontaneous(1); Verbal Response: oriented(1); Motor Response: obeys ph commands(2); Systolic BP: > 89 mm Hg(4); Respiratory Rate: 10 to 29 per min(4); Lancaster Score: 15; Trauma Score: 12 11:30 Eye Response: spontaneous(1); Verbal Response: oriented(1); Motor Response: obeys ph commands(2); Systolic BP: > 89 mm Hg(4); Respiratory Rate: 10 to 29 per min(4); Lancaster Score: 15; Trauma Score: 12 MDM: 11:41 Patient medically screened. kdr 11:47 Data reviewed: vital signs, nurses notes, radiologic studies. Counseling: I had a kdr detailed discussion with the patient and/or guardian regarding: the historical points, exam findings, and any diagnostic results supporting the discharge/admit diagnosis, radiology results, the need for outpatient follow up. 11:49 ED course: The patient was stable in the ED and happy with the interventions and plan [facility] for discharge and follow-up. 11/17 09:58 Order name: CT Head C Spine; Complete Time: 11:40 kdr 11/17 09:58 [facility] Order: Clean and dress facial wounds; Complete Time: 11:13 kdr Administered Medications: 11:13 Drug: Tetanus-Diphtheria Toxoid Adult 0.5 ml {Communications Manager: [employer]. Exp: ph 04/13/2022. Lot #: [id number]. } Route: IM; Site: right deltoid; 11:17 Follow up: Response: No adverse reaction ph Disposition: 11/18/19 11:41 Discharged to Home. Impression: Other slipping, tripping and stumbling and falls, Superficial injury of head, Facial Abrasions. - Condition is Stable. - Discharge Instructions: Abrasion, [id number], Head Injury, Adult, [id number]. - Medication Reconciliation Form, Thank You Letter form. - Follow up: Juliocesar Thomas MD; When: 2 - 3 days; Reason: If symptoms return, Further diagnostic work-up, Recheck today's complaints, Continuance of care, Re-evaluation by your physician. - Problem is new. - Symptoms have improved. Signatures: Dispatcher [employer] EDMS John May MD MD kdr Dana Greenfield RN RN ph Corrections: (The following items were deleted from the chart) 12:28 11:41 11/18/2019 11:41 Discharged to Home. Impression: Other slipping, tripping and ph stumbling and falls; Superficial injury of head; Facial Abrasions. Condition is Stable. Forms are Medication Reconciliation Form, Thank You Letter, Antibiotic Education, Prescription Opioid Use. Follow up: Juliocesar Thomas; When: 2 - 3 days; Reason: If symptoms return, Further diagnostic work-up, Recheck today's complaints, Continuance of care, Re-evaluation by your physician. Problem is new. Symptoms have improved. kdr
[2019-11-18 12:41] VITALS: BP 113/66; TEMP 98.3; O2SAT 100
== END 2019-11-18 12:28 | disposition home or self-care (01) ==
LOC: ER 09:28
DX: S00.90XA Unspecified superficial injury of unspecified part of head, initial encounter (principal); S00.31XA Abrasion of nose, initial encounter; S00.81XA Abrasion of other part of head, initial encounter; W19.XXXA Unspecified fall, initial encounter; Y93.9 Activity, unspecified; Y92.9 Unspecified place or not applicable; Z86.73 Personal history of transient ischemic attack (TIA), and cerebral infarction without residual deficits; Z88.8 Allergy status to other drugs, medicaments and biological substances; I10 Essential (primary) hypertension; E78.5 Hyperlipidemia, unspecified; F17.210 Nicotine dependence, cigarettes, uncomplicated
CPT/HCPCS: 70450; 72125; 90471; 90714; 99284; J7030; G0390

== ENCOUNTER 2019-11-26 18:50 | Emergency (ER) | payer OTHER ==
[2019-11-26] MEDS ORDERED: LIDOCAINE 4% PATCH ONE (21:54)
--- NOTE | 2019-11-26 22:28 | ER ---
Nurse's Notes [facility] Name: Maik German Age: 69 yrs Sex: Male : 1950 Arrival Date: 11/26/2019 Time: 18:51 Bed 18 Private MD: Diagnosis: Strain of muscle, fascia and tendon at neck level Presentation: 11/25 18:54 Chief complaint: Patient states: "I had neck pain start accouple of day s ago. it has jd3 gotten so bad now that I am almost unable to move it. I did have a fall accouple of days before my neck started hurting." Patient's son or daughter states: adult child: "he has also been not eating well lately and I really think he needs some blood work. the neck pain is so bad though he can't even hold his head up it hurts so bad.". Coronavirus screen: At this time, the client does not indicate any symptoms associated with coronavirus-19. Ebola Screen: Patient negative for fever greater than or equal to 101.5 degrees Fahrenheit, and additional compatible Ebola Virus Disease symptoms. Initial Sepsis Screen: Does the patient meet any 2 criteria? No. Patient's initial sepsis screen is negative. Does the patient have a suspected source of infection? No. Patient's initial sepsis screen is negative. Risk Assessment: Do you want to hurt yourself or someone else? Patient reports no desire to harm self or others. Onset of symptoms was November 24, 2019. 18:54 Method Of Arrival: Wheelchair jd3 18:54 Acuity: EMMA 3 jd3 Historical: - Allergies: 18:59 Lisinopril; jd3 - Home Meds: 18:59 atorvastatin 80 mg Oral tab 1 tab twice a day [Active]; clonidine HCl 0.1 mg Oral tab 1 jd3 tab 2 times per day [Active]; clopidogrel 75 mg Oral tab 1 tab once daily [Active]; furosemide 40 mg Oral tab 1 tab once daily [Active]; - PMHx: 18:59 Cellulitis; Hyperlipidemia; Hypertension; CVA; jd3 - PSHx: 18:59 Hernia repair; jd3 - Immunization history:: Adult Immunizations up to date. - Social history:: Smoking status: Patient reports the use of cigarette tobacco products, smokes two packs cigarettes per day. Screenin:26 Abuse screen: Denies threats or abuse. Nutritional screening: No deficits noted. ll2 Tuberculosis screening: No symptoms or risk factors identified. Fall Risk Fall in past 12 months (25 points). Ambulatory Aid- Furniture (30 pts.). Gait- Impaired (20 pts.). Mental Status- Overestimates/Forgets Limitations (15 pts.). Total Valencia Fall Scale indicates High Risk Score (45 or more points). Fall prevention measures have been instituted. Placed Close to Nursing Station Family Present and informed to notify staff if the need to leave the bedside. Assessment: 20:24 General: Appears in no apparent distress. Behavior is calm, cooperative, appropriate ll2 for age. Pain: Complains of pain in neck Pain currently is 8 out of 10 on a pain scale. Neuro: Level of Consciousness is awake, alert, obeys commands, Oriented to person, place, situation. Cardiovascular: Capillary refill < 3 seconds Patient's skin is warm and dry. Respiratory: Airway is patent Respiratory effort is even, unlabored, Respiratory pattern is regular, symmetrical. GI:. GI: No signs and/or symptoms were reported involving the gastrointestinal system. : No signs and/or symptoms were reported regarding the genitourinary system. EENT: No signs and/or symptoms were reported regarding the EENT system. Derm: Skin is intact, is healthy with good turgor, Skin is dry, Skin is pink, warm \\T\\ dry. Skin temperature is warm. Musculoskeletal: Circulation, motion, and sensation intact. Range of motion: limited in left hip, left knee, left ankle, right hip, right knee and right ankle. 21:09 Reassessment: No changes from previously documented assessment. Patient and/or family ll2 updated on plan of care and expected duration. Pain level reassessed. Patient is alert, oriented x 3, equal unlabored respirations, skin warm/dry/pink. Vital Signs: 19:00 BP 115 / 77; Pulse 95; Resp 17 S; Temp 98.9(O); Pulse Ox 99% on R/A; Weight 95.25 kg jd3 (R); Height 5 ft. 2 in. (157.48 cm) (R); Pain 10/10; 21:00 BP 137 / 53; Pulse 85; Resp 18; Pulse Ox 99% on R/A; ll2 21:00 BP 134 / 53; Pulse 88; Resp 15; Pulse Ox 99% on R/A; ll2 19:00 Body Mass Index 38.41 (95.25 kg, 157.48 cm) jd3 ED Course: 18:51 Patient arrived in ED. ag5 18:56 Triage completed. jd3 19:00 Arm band placed on. jd3 20:09 Mahnaz Eaton, AMALIA is Primary Nurse. ll2 20:21 Santos Mckeon NP is PHCP. pm1 20:21 Jerald Dunlap MD is Attending Physician. pm1 20:26 Patient has correct armband on for positive identification. Call light in reach. Adult ll2 w/ patient. 22:39 No provider procedures requiring assistance completed. Patient did not have IV access ll2 during this emergency room visit. Administered Medications: 21:44 Drug: Lidoderm 5 % (700 mg/patch) 1 patches Route: Topical; Site: affected area; ll2 Outcome: 22:27 Discharge ordered by MD. pm1 22:40 Discharged to home via wheelchair. ll2 22:40 Condition: stable 22:40 Discharge instructions given to patient, family, Instructed on discharge instructions, follow up and referral plans. medication usage, Demonstrated understanding of instructions, follow-up care, medications, Prescriptions given X 1. 22:40 Patient left the ED. sg Signatures: Ephraim Garnica RN AMALIA sg Santos Mckeon NP [employer] pm1 Kevin Berman RN RN jd3 Diony Maryan ag5 Mahnaz Eaton, AMALIA RN ll2 Corrections: (The following items were deleted from the chart) 18:59 18:54 Chief complaint: Patient states: "I had neck pain start accouple of day s ago. it jd3 has gotten so bad now that I am almost unable to move it. I did have a fall accouple of days before my neck started hurting." jd3
--- NOTE | 2019-11-26 22:28 | EDPHYS ---
Physician Documentation [facility] Name: Maik German Age: 69 yrs Sex: Male : 1950 Arrival Date: 11/26/2019 Time: 18:51 Bed 18 Private MD: ED Physician Jerald Dunlap HPI: 11/25 21:49 This 69 yrs old Male presents to ER via Wheelchair with complaints of Neck pm1 Pain, <24hrs Old. 21:49 The patient or guardian complains of pain, that is acute. The symptoms are located left pm1 side. Onset: The symptoms/episode began/occurred 3 day(s) ago. Context: The problem was sustained at home, The neck injury/problem resulted from from unknown cause. Associated signs and symptoms: The patient has no apparent associated signs or symptoms. The pain does not radiate. It is unknown whether or not the patient has recently seen a physician. Patient reports left sided neck pain for three days. Reports a fall a few days prior to onset of neck pain. No headache or LOC. Historical: - Allergies: 18:59 Lisinopril; jd3 - Home Meds: 18:59 atorvastatin 80 mg Oral tab 1 tab twice a day [Active]; clonidine HCl 0.1 mg Oral tab 1 jd3 tab 2 times per day [Active]; clopidogrel 75 mg Oral tab 1 tab once daily [Active]; furosemide 40 mg Oral tab 1 tab once daily [Active]; - PMHx: 18:59 Cellulitis; Hyperlipidemia; Hypertension; CVA; jd3 - PSHx: 18:59 Hernia repair; jd3 - Immunization history:: Adult Immunizations up to date. - Social history:: Smoking status: Patient reports the use of cigarette tobacco products, smokes two packs cigarettes per day. ROS: 21:49 Constitutional: Negative for fever, chills, and weight loss. pm1 21:49 Cardiovascular: Negative for chest pain, palpitations, and edema, Respiratory: Negative for shortness of breath, cough, wheezing, and pleuritic chest pain, Abdomen/GI: Negative for abdominal pain, nausea, vomiting, diarrhea, and constipation, Back: Negative for injury and pain, MS/Extremity: Negative for injury and deformity, Skin: Negative for injury, rash, and discoloration, Neuro: Negative for headache, weakness, numbness, tingling, and seizure. 21:49 Neck: Positive for pain with movement, Negative for bony tenderness. Exam: 21:49 Constitutional: This is a well developed, well nourished patient who is awake, alert, pm1 and in no acute distress. Head/Face: Normocephalic, atraumatic. 21:49 Skin: Warm, dry with normal turgor. Normal color with no rashes, no lesions, and no evidence of cellulitis. MS/ Extremity: Pulses equal, no cyanosis. Neurovascular intact. Full, normal range of motion. 21:49 Neck: External neck: tenderness, of the left trapezius, muscle spasm present, C-spine: vertebral tenderness, is not appreciated. 21:49 Neuro: Exam negative for acute changes, Orientation: is normal, Mentation: is normal, Motor: moves all fours. Vital Signs: 19:00 BP 115 / 77; Pulse 95; Resp 17 S; Temp 98.9(O); Pulse Ox 99% on R/A; Weight 95.25 kg jd3 (R); Height 5 ft. 2 in. (157.48 cm) (R); Pain 10/10; 21:00 BP 137 / 53; Pulse 85; Resp 18; Pulse Ox 99% on R/A; ll2 21:00 BP 134 / 53; Pulse 88; Resp 15; Pulse Ox 99% on R/A; ll2 19:00 Body Mass Index 38.41 (95.25 kg, 157.48 cm) jd3 MDM: 20:33 Patient medically screened. pm1 22:26 Data reviewed: vital signs. Data interpreted: Pulse oximetry: on room air is 99 %. pm1 Interpretation: normal. Counseling: I had a detailed discussion with the patient and/or guardian regarding: the historical points, exam findings, and any diagnostic results supporting the discharge/admit diagnosis, the need for outpatient follow up, to return to the emergency department if symptoms worsen or persist or if there are any questions or concerns that arise at home. 22:26 ED course: Patient's pain and muscle spasm improved with massage of left trapezius pm1 muscle. Pain further relieved with Lidoderm patch to left trapezius. Administered Medications: 21:44 Drug: Lidoderm 5 % (700 mg/patch) 1 patches Route: Topical; Site: affected area; ll2 Disposition: 11/26 05:35 Co-signature as Attending Physician, Jerald Dunlap MD. mh7 Disposition: 11/26/19 22:27 Discharged to Home. Impression: Strain of muscle, fascia and tendon at neck level. - Condition is Stable. - Discharge Instructions: Muscle Strain, Acute Torticollis, Adult. - Prescriptions for Lidoderm 5 % Topical adhesive patch,medicated - apply 1 patch by TRANSDERMAL route once daily As needed 12 hours on and 12 hours off in 24 hour period; 30 Transdermal Patch. - Medication Reconciliation Form, Thank You Letter, Antibiotic Education, Prescription Opioid Use form. - Follow up: Emergency Department; When: As needed; Reason: Worsening of condition. Follow up: Private Physician; When: 2 - 3 days; Reason: Recheck today's complaints, Continuance of care, Re-evaluation by your physician. - Problem is new. - Symptoms have improved. Signatures: Ephraim Garnica RN RN sg Santos Mckeon, FELICE ASSISTANT PROFESSOR [employer] SCIENCES pm1 Kevin Berman RN RN jd3 Mahnaz Eaton RN RN ll2 Jerald Dunlap MD MD [facility] Corrections: (The following items were deleted from the chart) 11/25 22:40 22:27 11/26/2019 22:27 Discharged to Home. Impression: Strain of muscle, fascia and sg tendon at neck level. Condition is Stable. Forms are Medication Reconciliation Form, Thank You Letter, Antibiotic Education, Prescription Opioid Use. Follow up: Emergency Department; When: As needed; Reason: Worsening of condition. Follow up: Private Physician; When: 2 - 3 days; Reason: Recheck today's complaints, Continuance of care, Re-evaluation by your physician. Problem is new. Symptoms have improved. pm1
[2019-11-26 22:47] VITALS: TEMP 98.9; O2SAT 99
[2019-11-26 22:49] VITALS: BP 134/53
== END 2019-11-26 22:40 | disposition home or self-care (01) ==
LOC: ER 18:50
DX: S16.1XXA Strain of muscle, fascia and tendon at neck level, initial encounter (principal); I10 Essential (primary) hypertension; E78.5 Hyperlipidemia, unspecified; F17.210 Nicotine dependence, cigarettes, uncomplicated; Z88.8 Allergy status to other drugs, medicaments and biological substances; Z86.73 Personal history of transient ischemic attack (TIA), and cerebral infarction without residual deficits
CPT/HCPCS: 99283

== ENCOUNTER 2020-01-08 10:12 | Inpatient (IN) | payer OTHER ==
[2020-01-08] MEDS ORDERED: FOSPHENYTOIN PE 500 MG/10 ML VIAL ONE ×2 (10:33→10:34)
[2020-01-08] MEDS ORDERED: NA CHLORIDE 0.9% 100 ML ONE (10:34)
[2020-01-08 10:49] LABS: Absolute Lymphocytes (CBC) 1.7 K/uL (0.7-4.9); Basophils % 0.5 % (0-1.3); Hematocrit 32.1 % (39.6-49.0); Lymphocytes % 11.8 % (15.3-44.8); MPV 9.7 fL (7.6-11.3); RBC Red Blood Cell Count 3.52 M/uL (4.33-5.43)
[2020-01-08 10:53] LABS: Protime INR 1.21
--- NOTE | 2020-01-08 10:56 | RAD REPORT ---
EXAM DESCRIPTION: CT - Ct Stroke Brain Wo Cont - 01/08/2020 10:40 am CLINICAL HISTORY: Confusion/alteration of awareness COMPARISON: October 2019 TECHNIQUE: Computed axial tomography of the head was obtained. All CT scans are performed using dose optimization technique as appropriate and may include automated exposure control or mA/KV adjustment according to patient size. FINDINGS: An intracranial bleed is not seen . The ventricles are normal in caliber. No extra-axial fluid collection is noted. Low-density areas within the left basal ganglia, left frontal lobe and left occipital/parietal lobes compatible with old infarcts. Fluid within the sinuses/ mastoids is not seen. IMPRESSION: No acute intracranial abnormality is seen. If patient's symptoms persist MRI of the bra in would be recommended. Avni of the emergency room was notified at 10:51 a.m. January 08, 2020
[2020-01-08 11:06] LABS: Troponin (Emerg Dept Use Only) 0.02 ng/mL (0.0-0.045)
[2020-01-08] MEDS ORDERED: NA CHLORIDE 0.9% 1,000 ML ONE ×3 (11:21→15:44)
[2020-01-08] MEDS ORDERED: FENTANYL CITR 100 MCG/2 ML ONE (11:23)
[2020-01-08] MEDS ORDERED: KCL 20 MEQ/100 mL IVPB 20 MEQ/100 ML BAG IV ONE ×2 (11:27→17:49)
--- NOTE | 2020-01-08 11:38 | RAD REPORT ---
EXAM DESCRIPTION: [facility] Single View01/08/2020 11:10 am CLINICAL HISTORY: Seizure COMPARISON: February 2019 FINDINGS: An endotracheal tube has its tip in the right mainstem bronchus. Nasogastric tube within t he stomach The lungs appear clear of acute infiltrate. The heart is normal size IMPRESSION: Endotracheal tube with its tip in the right mainstem bronchus Avni from the emergency room notified
--- NOTE | 2020-01-08 11:59 | EDPHYS ---
Physician Documentation [facility] Name: Maik German Age: 69 yrs Sex: Male : 1950 Arrival Date: 01/08/2020 Time: 10:22 Bed 3 Private MD: ED Physician Harish Sam HPI: 01/07 11:53 This 69 yrs old Male presents to ER via EMS with complaints of S/S of Possible rn Stroke, Seizure. 11:53 The patient's problem is reported as altered mental status, an apparent seizure. Onset: rn The symptoms/episode began/occurred yesterday, last night. Duration: The episode is continuous. The symptoms are alleviated by nothing. The symptoms are aggravated by nothing. Associated signs and symptoms: Pertinent positives: confusion, seizure, Pertinent negatives:. Severity of symptoms: At their worst the symptoms were moderate severe in the emergency department the symptoms are unchanged. The patient has not experienced similar symptoms in the past. The patient has not recently seen a physician. Historical: - Allergies: 11:14 Lisinopril; sv - PMHx: 11:14 Cellulitis; CVA; Hyperlipidemia; Hypertension; sv - PSHx: 11:14 Hernia repair; sv - Immunization history:: Adult Immunizations unknown. - Social history:: Smoking status: unknown. - Family history:: not pertinent. - Hospitalizations: : No recent hospitalization is reported. - History obtained from: . ROS: 11:53 Unable to obtain ROS due to obtunded state. rn Exam: 11:53 Radiologist reports: No acute findings rn 11:53 Constitutional: This is a well developed, well nourished patient, unresponsive, was post-ictal and sonorous respirations then had another seizure. Head/Face: Normocephalic, atraumatic. Eyes: Came in with forced deviation to the right with nystagmus, during seizure, gaze to left with nystagmus. ENT: Dry mm Cardiovascular: Regular rate and rhythm. No pulse deficits. Respiratory: Sonorous respirations Abdomen/GI: soft, non-tende,r non-distended Back: Mass on upper back, soft, non-erythematous, mobile, approx 6 cm diameter Skin: Warm, dry MS/ Extremity: Pulses equal, no cyanosis. Neurovascular intact. Full, normal range of motion. Equal circumference. Neuro: GCS 4, only moves extremities during seizure Vital Signs: 10:12 BP 141 / 86; Pulse 113; Resp 24; Pulse Ox 99% on Non-rebreather mask; Weight 90 kg; ph 10:18 BP 137 / 83; Pulse 115; Resp 20; Pulse Ox 99% on 15 lpm ETT ambu; ph 11:16 BP 74 / 44; Pulse 67; Resp 14; Pulse Ox 100% on ETT vent; mh5 11:19 BP 95 / 58; Pulse 72; Resp 20; Pulse Ox 100% on ETT vent; ph 11:30 BP 102 / 54; Pulse 75 MON; Resp 18; Pulse Ox 100% on 60% FiO2 ETT vent; sv 11:45 BP 97 / 49; Pulse 66; Resp 18; Pulse Ox 100% on 60% FiO2 ETT vent; sv 12:00 Temp 94.9(C); sv 12:00 BP 92 / 45; Pulse 67 MON; Resp 16; Pulse Ox 100% on 60% FiO2 ETT vent; sv 12:15 BP 78 / 44; Pulse 67; Resp 18; Pulse Ox 100% on 60% FiO2 ETT vent; sv 12:30 BP 66 / 40; Pulse 70 MON; Resp 21; Pulse Ox 98% on 60% FiO2 ETT vent; sv 12:45 BP 83 / 71; Pulse 71; Resp 20; Pulse Ox 100% on 60% FiO2 ETT vent; sv 13:00 BP 75 / 27; Pulse 70 MON; Resp 21; Pulse Ox 100% on 60% FiO2 ETT vent; sv 13:10 BP 90 / 57; Pulse 66; Resp 19; Pulse Ox 100% on 60% FiO2 ETT vent; sv 13:30 BP 86 / 58; Pulse 67; Resp 16; Temp 95.8(C); Pulse Ox 100% on 60% FiO2 ETT vent; sv 13:35 BP 96 / 41; Pulse 68 MON; Resp 16; Temp 96(C); Pulse Ox 100% on 60% FiO2 ETT vent; sv 13:45 BP 87 / 39; Pulse 66 MON; Resp 16; Pulse Ox 100% on 60% FiO2 ETT vent; sv 13:50 BP 91 / 42; Pulse 75 MON; Resp 18; Pulse Ox 100% on 60% FiO2 ETT vent; sv 14:05 BP 96 / 41; Pulse 69 MON; Resp 16; Temp 96.9(C); Pulse Ox 100% on 60% FiO2 ETT vent; sv 14:20 BP 92 / 38; Pulse 69; Resp 16; Pulse Ox 100% on 60% FiO2 ETT vent; sv 14:35 BP 97 / 42; Pulse 72 MON; Resp 16; Temp 97.1(C); Pulse Ox 100% on 60% FiO2 ETT vent; sv 14:45 BP 97 / 38; Pulse 74; Resp 16; Pulse Ox 100% on 60% FiO2 ETT vent; sv 15:00 BP 103 / 46; Pulse 76 MON; Resp 16; Temp 97.4(C); Pulse Ox 100% on 60% FiO2 ETT vent; sv 11:30 Sinus Rhythm sv 12:00 Sinus Rhythm sv 12:30 Sinus Rhythm sv 13:00 Sinus Rhythm sv 13:35 Sinus Rhythm sv 13:45 Sinus Rhythm sv 13:50 Sinus Rhythm sv 14:05 Sinus Rhythm sv 14:35 Sinus Rhythm sv 15:00 Sinus Rhythm sv Cyndy Coma Score: 10:23 Eye Response: none(1). Verbal Response: none(1). Motor Response: extension rn (decerebrate)(2). Total: 4. Procedures: 11:52 Intubation: Ventilated with 100% NRB prior to procedure. O2 saturation prior to technical internship was 95 %. Intubated orally using # 4 Coreen blade with 7.5 mm ETT. was successful on first attempt. Cricoid pressure applied during procedure. Tube secured with ETT victor at right side of mouth measured 23 cm at lip. Placement verified by CO2 detector with (+) color change, auscultating bilateral breath sounds, O2 saturation after procedure was 96 %. Patient tolerated well. 12:50 Central Line: the site was prepped with Betadine, in sterile fashion, a triple lumen rn catheter was inserted, in the right in 1 attempts. placement was verified, by blood return, the site was dressed with Tegaderm, using sterile technique, the patient tolerated the procedure, well. MDM: 10:22 Patient medically screened. rn 10:23 ED course: Per report, last known normal 0230. Pt seizure x 2 here, intubated for rn airway protection. . 10:35 ED course: reports acting funny last night, seemed confused, trouble speaking, rn noticed it again at 0230, then noticed "eyes wandering" and shaking all over later in the morning which is when she called 911. . 11:08 ED course: NO acute findings per radiology on CT head. . rn 11:53 Differential diagnosis: CVA, TIA, metabolic disorder, electrolyte disorder, Seizure, rn intracranial bleed. Data reviewed: vital signs, nurses notes, lab test result(s), EKG, radiologic studies, CT scan, plain films, and as a result, I will admit patient. Counseling: I had a detailed discussion with the patient and/or guardian regarding: the historical points, exam findings, and any diagnostic results supporting the discharge/admit diagnosis, lab results, radiology results, the need for further work-up and treatment in the hospital. Response to treatment: the patient's symptoms have mildly improved after treatment, and as a result, I will admit patient. Admission orders: after a detailed discussion of the patient's condition and case, the admit orders are written by me. ED course: Consulted with Dr. Cowart, agrees with admission, will get EEG and MRI. Admitted to Dr. Claire. . 12:50 ED course: Bp slowly dropping, central line placed, right femoral, single stick, rn tolerated well. . 01/07 10:23 Order name: CPK; Complete Time: 11: rn 01/07 10:23 Order name: Troponin (emerg Dept Use Only); Complete Time: : rn 01/07 10:23 Order name: Basic Metabolic Panel; Complete Time: 11: rn 01/07 10:23 Order name: CBC with Diff; Complete Time: 11: rn 01/07 10:23 Order name: Protime (+inr); Complete Time: : rn 01/07 10:23 Order name: Ptt, Activated; Complete Time: : rn 01/07 12:40 Order name: CBC with Automated Diff EDMS 01/07 12:40 Order name: CBC with Automated Diff EDMS 01/07 12:40 Order name: Comprehensive Metabolic Panel EDMS 01/07 12:40 Order name: Comprehensive Metabolic Panel EDMS 01/07 12:40 Order name: Lactate EDMS 01/07 12:40 Order name: Lactate EDMS 01/07 12:40 Order name: Magnesium EDMS 01/07 10:23 Order name: CT Stroke Brain w/o Contrast; Complete Time: 11:27 rn 01/07 10:23 Order name: Stroke CXR 1 View; Complete Time: 11:47 rn 01/07 11:49 Order name: CT Head Angio; Complete Time: 13:52 rn 01/07 11:49 Order name: CT Neck Angio; Complete Time: 13:52 rn 01/07 12:40 Order name: Magnesium EDMS 01/07 12:40 Order name: NT PRO-BNP EDMS 01/07 12:40 Order name: NT PRO-BNP EDKY 01/07 12:40 Order name: Phosphorus EDKY 01/07 12:40 Order name: Phosphorus EDMS 01/07 13:37 Order name: SARS-COV-2 RT PCR; Complete Time: 13:52 EDMS 01/07 14:02 Order name: AMMONIA rn 01/07 14:36 Order name: Ammonia; Complete Time: 14:50 EDKY 01/07 10:23 Order name: EKG; Complete Time: 10:24 rn 01/07 10:23 Order name: Accucheck; Complete Time: 10:24 rn 01/07 10:23 Order name: Cardiac monitoring; Complete Time: 10:25 rn 01/07 10:23 Order name: EKG - Nurse/Tech; Complete Time: 13:57 rn 01/07 10:23 Order name: IV Saline Lock; Complete Time: 10:25 rn 01/07 10:23 Order name: Labs collected and sent; Complete Time: 10:25 rn 01/07 10:23 Order name: NPO; Complete Time: 10:25 rn 01/07 10:23 Order name: O2 Per Protocol; Complete Time: 10:25 rn 01/07 10:23 Order name: O2 Sat Monitoring; Complete Time: 10:25 rn 01/07 10:23 Order name: Stroke Swallow Screen; Complete Time: 12:34 rn 01/07 12:40 Order name: CONS Physician Consult EDKY 01/07 12:40 Order name: NPO EDKY Administered Medications: 10:14 Drug: Ativan 2 mg Route: IVP; Site: right wrist; ph 11:15 Follow up: Response: No adverse reaction sv 10:14 Drug: Etomidate 20 mg Route: IVP; Site: left wrist; ph 11:15 Follow up: Response: No adverse reaction sv 10:15 Drug: Rocuronium 50 mg Route: IVP; Site: left wrist; ph 11:15 Follow up: Response: No adverse reaction sv 10:30 Drug: Fosphenytoin 20 mg pe/kg Route: IV; Rate: calculated rate; Site: left forearm; ss 11:00 Follow up: Response: No adverse reaction; IV Status: Completed infusion; IV Intake: sv 100ml 11:17 Drug: NS 0.9% 1000 ml Route: IV; Rate: 1000 ml; Site: left wrist; ph 12:26 Follow up: IV Status: Completed infusion; IV Intake: 1000ml ss 11:19 Drug: Potassium Chloride 20 mEq Route: IV; Rate: calculated rate; Site: left wrist; ph 13:16 Follow up: Response: No adverse reaction; IV Status: Completed infusion; IV Intake: sv 100ml 12:25 Drug: D5-NS with KCL 20 mEq/L 1000 ml Route: IV; Rate: 125 ml/hr; Site: left forearm; sv 15:05 Follow up: Response: No adverse reaction; IV Status: Infusion continued upon admission sv 12:35 Drug: NS 0.9% 1000 ml Route: IV; Rate: 1000 ml; Site: right forearm; sv 13:37 Follow up: Response: No adverse reaction; IV Status: Completed infusion; IV Intake: sv 1000ml 13:15 Drug: Levophed (4 mg/250 mL D5W 4 mcg/min {Note: started at 5mcg/min.} Route: IV; Rate: sv calculated rate; Site: right femoral; 13:30 Follow up: Response: No adverse reaction; Rate change 7 calculated rate sv 13:45 Follow up: Response: No adverse reaction; Rate change 10 calculated rate sv 14:49 Follow up: Response: No adverse reaction; Rate change 12 calculated rate sv 15:05 Follow up: Response: No adverse reaction; IV Status: Infusion continued upon admission sv Disposition: 01/08/20 11:58 Hospitalization ordered by Chilango Claire for Inpatient Admission. Preliminary diagnosis are Nonepileptic seizures, Altered mental status, unspecified, Hypokalemia. - Bed requested for [facility] ER HOLD. - Status is Inpatient Admission. ss - Condition is Fair. - Problem is new. - Symptoms have improved. Critical care time excluding procedures: 11:53 Critical care time: Bedside Care: 35 minutes, Consultation: 5 minutes, Family rn Intervention: 5 minutes. Total time: 45 minutes Signatures: Dispatcher [employer] Hortencia Higginbothamara bd Gloria Brock, RN RN Harish Sam MD MD rn Smirch, Shelby, RN RN ss Hall, Patricia, RN RN ph Corrections: (The following items were deleted from the chart) 11:39 11:31 Chest Single View+RAD.RAD.BRZ ordered. EDMS EDMS 12:31 12:02 CORONAVIRUS+MR.LAB.BRZ ordered. EDKY EDMS 14:00 11:58 Hospitalization Ordered by Chilango Claire MD for Inpatient Admission. Preliminary bd diagnosis is Nonepileptic seizures; Altered mental status, unspecified; Hypokalemia. Bed requested for Intensive Care Unit. Status is Inpatient Admission. Condition is Fair. Problem is new. Symptoms have improved. rn 14:03 11:53 Constitutional: This is a well developed, well nourished patient, unresponsive, rn was post-ictal and sonorous respirations then had another seizure. Head/Face: Normocephalic, atraumatic. Eyes: Came in with forced deviation to the right with nystagmus, during seizure, gaze to left with nystagmus. ENT: Dry mm Cardiovascular: Regular rate and rhythm. No pulse deficits. Respiratory: Sonorous respirations Abdomen/GI: soft, non-tende,r non-distended Skin: Warm, dry MS/ Extremity: Pulses equal, no cyanosis. Neurovascular intact. Full, normal range of motion. Equal circumference. Neuro: GCS 4, only moves extremities during seizure rn 15:12 14:00 01/08/2020 11:58 Hospitalization Ordered by Chilango Claire MD for Inpatient Admission. Preliminary diagnosis is Nonepileptic seizures; Altered mental status, unspecified; Hypokalemia. Bed requested for [facility] ER HOLD. Status is Inpatient Admission. Condition is Fair. Problem is new. Symptoms have improved. bd
--- NOTE | 2020-01-08 11:59 | ER ---
Nurse's Notes [facility] Name: Maik German Age: 69 yrs Sex: Male : 1950 Arrival Date: 01/08/2020 Time: 10:22 Bed 3 Private MD: Diagnosis: Nonepileptic seizures;Altered mental status, unspecified;Hypokalemia Presentation: 01/07 10:12 Coronavirus screen: At this time, the client does not indicate any symptoms associated ph with coronavirus-19. Ebola Screen: No symptoms or risks identified at this time. An acute neurological deficit is present. Initial Sepsis Screen: Does the patient meet any 2 criteria? Altered Mental Status. HR > 90 bpm. Does the patient have a suspected source of infection? No. Patient's initial sepsis screen is negative. Risk Assessment: Do you want to hurt yourself or someone else? Unable to obtain. 10:12 Chief complaint: EMS states: AMS since this morning. Last known well was at 0230 this ss morning. Onset of symptoms was January 08, 2020. 10:12 The patients blood glucose was checked before arriving to the hospital and was found to ss be normal. 10:22 Acuity: EMMA 1 vg1 10:22 Method Of Arrival: EMS: [facility] vg1 Stroke Activation: Symptom onset > 6 hours Physician: Stroke Attending; Name: ; Notified At: ; Arrived At: Physician: Chief Stroke Resident; Name: ; Notified At: ; Arrived At: Physician: Stroke Resident; Name: ; Notified At: ; Arrived At: Physician: ED Attending; Name: ; Notified At: ; Arrived At: Physician: ED Resident; Name: ; Notified At: ; Arrived At: Historical: - Allergies: 11:14 Lisinopril; sv - PMHx: 11:14 Cellulitis; CVA; Hyperlipidemia; Hypertension; sv - PSHx: 11:14 Hernia repair; sv - Immunization history:: Adult Immunizations unknown. - Social history:: Smoking status: unknown. - Family history:: not pertinent. - Hospitalizations: : No recent hospitalization is reported. - History obtained from: . Screenin:08 Abuse screen: Pt is intubated. No obvious signs of abuse/ neglect noted. Tuberculosis ss screening: Has had TB. 11:15 Nutritional screening: unresponsive and intubated . Fall Risk No fall in past 12 months sv (0 pts). Secondary diagnosis (15 points) impaired mobility, IV access (20 points). Ambulatory Aid- None/Bed Rest/Nurse Assist (0 pts). Gait- Normal/Bed Rest/Wheelchair (0 pts) Mental Status- Overestimates/Forgets Limitations (15 pts.). Total Valencia Fall Scale indicates High Risk Score (45 or more points). Fall prevention measures have been instituted. Side Rails Up X 2 Placed Close to Nursing Station Frequent Obs/Assessments Occuring As available patient and family educated on Fall Prevention Program and Strategies. Assessment: 10:08 Reassessment: Pt actively seizing, Dr Sam at bedside to assess pt, decision made to ph intubate pt. 10:08 The patient is not alert and/or unable to follow commands. The patient failed the ss bedside swallow screening. The patient will be kept NPO until cleared by Speech Therapy or Physician. T-PA (Activase) Screening: Contraindications:. 10:08 General: Appears ill, Behavior is listless. Neuro: Level of Consciousness is obtunded, ss Speech Pt does not understand, unable to follow commands . Respiratory: Respiratory pattern is snoring. GI: Abdomen is round umbilical hernia noted. EENT: Oral mucosa is moist. Derm: Skin is dry, Skin temperature is cool dry/ hardened skin noted to bilateral lower extremities. 10:12 Reassessment: RT at bedside. ph 10:29 Reassessment: Pt taken to CT on monitor, accompanied by Kelsey RN and RT. ph 11:15 Patient has been NPO before screening. The patient is not alert and/or unable to follow sv commands. Bedside swallow screen discontinued. Patient kept NPO until cleared by Speech Therapy or Physician. unresponsive and intubated unresponsive and intubated unresponsive and intubated unresponsive and intubated unresponsive and intubated unresponsive and intubated Provider notified of bedside swallow screening results: Harish Sam MD. 11:15 General: Appears in no apparent distress. obese, well developed, unresponsive and sv intubated . Behavior is unresponsive. intubated. Pain: Unable to use pain scale. FLACC scale score is 0 out of 10. Neuro: Level of Consciousness is unresponsive, intubated. Oriented to none. Cardiovascular: Pulses are palpable in right radial artery and left radial artery Rhythm is sinus rhythm. Respiratory: Airway via oral intubation Respiratory effort is even, unlabored, Respiratory pattern is regular, symmetrical, Ventilator assessment: ET Tube: 7.5 23 cm at lip. Ventilator Mode: Assist Control (AC) Tidal Volume: 560 Respiratory Rate: 16 FiO2: 60% HOB > 30 degrees. Patient repositioned to supine position. Breath sounds are clear bilaterally. GI: Abdomen is distended, Oral gastric tube in place, to suction. Site clean. Derm: Skin is dry, Skin is pale, Skin temperature is cool. 11:15 Reassessment: Unable to do an NIH or VAN score on pt. Pt is intubated and sedated. sv 12:22 Reassessment: Pt to CT at this time VIA stretcher, on monitor with AMALIA Castro and RT.ss 12:24 Reassessment: Pt back from CT. ss 12:25 Reassessment: Patient appears in no apparent distress at this time. No changes from sv previously documented assessment. Pt remains intubated. 13:15 Reassessment: Patient appears in no apparent distress at this time. No changes from sv previously documented assessment. Pt remains intubated. 13:45 Reassessment: Patient appears in no apparent distress at this time. No changes from sv previously documented assessment. Pt remains intubated. 14:49 Reassessment: Patient appears in no apparent distress at this time. No changes from sv previously documented assessment. Pt remains intubated. Vital Signs: 10:12 BP 141 / 86; Pulse 113; Resp 24; Pulse Ox 99% on Non-rebreather mask; Weight 90 kg; ph 10:18 BP 137 / 83; Pulse 115; Resp 20; Pulse Ox 99% on 15 lpm ETT ambu; ph 11:16 BP 74 / 44; Pulse 67; Resp 14; Pulse Ox 100% on ETT vent; mh5 11:19 BP 95 / 58; Pulse 72; Resp 20; Pulse Ox 100% on ETT vent; ph 11:30 BP 102 / 54; Pulse 75 MON; Resp 18; Pulse Ox 100% on 60% FiO2 ETT vent; sv 11:45 BP 97 / 49; Pulse 66; Resp 18; Pulse Ox 100% on 60% FiO2 ETT vent; sv 12:00 Temp 94.9(C); sv 12:00 BP 92 / 45; Pulse 67 MON; Resp 16; Pulse Ox 100% on 60% FiO2 ETT vent; sv 12:15 BP 78 / 44; Pulse 67; Resp 18; Pulse Ox 100% on 60% FiO2 ETT vent; sv 12:30 BP 66 / 40; Pulse 70 MON; Resp 21; Pulse Ox 98% on 60% FiO2 ETT vent; sv 12:45 BP 83 / 71; Pulse 71; Resp 20; Pulse Ox 100% on 60% FiO2 ETT vent; sv 13:00 BP 75 / 27; Pulse 70 MON; Resp 21; Pulse Ox 100% on 60% FiO2 ETT vent; sv 13:10 BP 90 / 57; Pulse 66; Resp 19; Pulse Ox 100% on 60% FiO2 ETT vent; sv 13:30 BP 86 / 58; Pulse 67; Resp 16; Temp 95.8(C); Pulse Ox 100% on 60% FiO2 ETT vent; sv 13:35 BP 96 / 41; Pulse 68 MON; Resp 16; Temp 96(C); Pulse Ox 100% on 60% FiO2 ETT vent; sv 13:45 BP 87 / 39; Pulse 66 MON; Resp 16; Pulse Ox 100% on 60% FiO2 ETT vent; sv 13:50 BP 91 / 42; Pulse 75 MON; Resp 18; Pulse Ox 100% on 60% FiO2 ETT vent; sv 14:05 BP 96 / 41; Pulse 69 MON; Resp 16; Temp 96.9(C); Pulse Ox 100% on 60% FiO2 ETT vent; sv 14:20 BP 92 / 38; Pulse 69; Resp 16; Pulse Ox 100% on 60% FiO2 ETT vent; sv 14:35 BP 97 / 42; Pulse 72 MON; Resp 16; Temp 97.1(C); Pulse Ox 100% on 60% FiO2 ETT vent; sv 14:45 BP 97 / 38; Pulse 74; Resp 16; Pulse Ox 100% on 60% FiO2 ETT vent; sv 15:00 BP 103 / 46; Pulse 76 MON; Resp 16; Temp 97.4(C); Pulse Ox 100% on 60% FiO2 ETT vent; sv 11:30 Sinus Rhythm sv 12:00 Sinus Rhythm sv 12:30 Sinus Rhythm sv 13:00 Sinus Rhythm sv 13:35 Sinus Rhythm sv 13:45 Sinus Rhythm sv 13:50 Sinus Rhythm sv 14:05 Sinus Rhythm sv 14:35 Sinus Rhythm sv 15:00 Sinus Rhythm sv Cyndy Coma Score: 10:23 Eye Response: none(1). Verbal Response: none(1). Motor Response: extension rn (decerebrate)(2). Total: 4. ED Course: 10:10 Inserted saline lock: 20 gauge in left wrist, using aseptic technique. Blood collected. ph 10:13 Inserted saline lock: 22 gauge in right wrist, using aseptic technique. ph 10:17 Assisted provider with intubation using 7.5 mm ETT via oral route. ET tube secured at ph 24cm at the lips. Set up intubation tray. Intubated by Harish Sam MD Placement verified by CO2 detector w/ + color change, auscultating bilateral breath sounds, Patient tolerated well. 10:22 Patient arrived in ED. vg1 10:22 Harish Sam MD is Attending Physician. rn 10:22 Triage completed. vg1 10:29 Patient has correct armband on for positive identification. Bed in low position. Call ph light in reach. Side rails up X2. Seizure precautions initiated. flanging roll operator on. Pulse ox on. NIBP on. 10:31 Arm band placed on right wrist. ph 10:39 CT Stroke Brain w/o Contrast In Process Unspecified. EDMS 11:10 Stroke CXR 1 View In Process Unspecified. EDMS 11:14 Gloria Brock, AMALIA is Primary Nurse. sv 11:14 Report received from Kelsey HOLLAND. sv 11:20 NGT: inserted 16 Fr. other via oral route verified placement of air over stomach, ph verified return of gastric contents, Placement verified by X-ray, to intermittent suction. Returned gastric contents. Patient tolerated well. Patient transferred, IV remains in place. 11:40 Hankins cath inserted, using sterile technique, 16 Fr., by mi, balloon inflated, to sv gravity drainage, other Criticore returned clear yellow urine. 11:58 Chilango Claire MD is Hospitalizing Provider. rn 12:18 CT Head Angio In Process Unspecified. EDMS 12:25 CT Neck Angio In Process Unspecified. EDMS 14:49 AMMONIA Sent. sv Restraints: 12:30 Non-Violent Restraint: Order obtained. Initiated on January 08, 2020 at 12:30 Unable sv to provide Restraint education. Pt intubated and sedated. Actions/Behavior observed: Confused/disoriented, has difficulty remembering/follow instructions, has impaired decision making, has decreased level of consciousness, unable to follow instructions, Less restrictive alternatives attempted: 1:1 patient care, placed near Nurse station, family at bedside, medications evaluated, lines/tubes covered, eliminated unnecessary lines/tubes, Alternative interventions: Ineffective. Clinical justification for use: airway protection, line protection, patient safety, Mental status: patient asleep, Cognition: Unable to assess. Circulation: Within defined parameters (based on Cardiovascular assessment) Skin integrity: Within defined parameters (based on Integumentary assessment) Signs of injury related to restraint: No injuries noted. Range of Motion (ROM): patient asleep. Restraint status: Side rails up x 4 Started. Soft wrist restraint (Right) Started. Soft wrist restraint (Left) Started. 14:30 Non-Violent Restraint: Actions/Behavior observed: Confused/disoriented, has difficulty sv remembering/follow instructions, has impaired decision making, has decreased level of consciousness, unable to follow instructions, Less restrictive alternatives attempted: decrease environmental stimuli, 1:1 patient care, placed near Nurse station, family at bedside, medications evaluated, lines/tubes covered, eliminated unnecessary lines/tubes, Alternative interventions: Ineffective. Clinical justification for use: airway protection, line protection, patient safety, Mental status: patient asleep, Cognition: Unable to assess. Circulation: Within defined parameters (based on Cardiovascular assessment) Skin integrity: Within defined parameters (based on Integumentary assessment) Signs of injury related to restraint: No injuries noted. Range of Motion (ROM): patient asleep. Hydration/Food: patient asleep. Elimination/Hygiene: Patient asleep. Restraint status: Side rails up x 4 Continued. Soft wrist restraint (Right) Continued. Soft wrist restraint (Left) Continued. Criteria to discontinue Restraint not met. Restraint continued. Administered Medications: 10:14 Drug: Ativan 2 mg Route: IVP; Site: right wrist; ph 11:15 Follow up: Response: No adverse reaction sv 10:14 Drug: Etomidate 20 mg Route: IVP; Site: left wrist; ph 11:15 Follow up: Response: No adverse reaction sv 10:15 Drug: Rocuronium 50 mg Route: IVP; Site: left wrist; ph 11:15 Follow up: Response: No adverse reaction sv 10:30 Drug: Fosphenytoin 20 mg pe/kg Route: IV; Rate: calculated rate; Site: left forearm; ss 11:00 Follow up: Response: No adverse reaction; IV Status: Completed infusion; IV Intake: sv 100ml 11:17 Drug: NS 0.9% 1000 ml Route: IV; Rate: 1000 ml; Site: left wrist; ph 12:26 Follow up: IV Status: Completed infusion; IV Intake: 1000ml ss 11:19 Drug: Potassium Chloride 20 mEq Route: IV; Rate: calculated rate; Site: left wrist; ph 13:16 Follow up: Response: No adverse reaction; IV Status: Completed infusion; IV Intake: sv 100ml 12:25 Drug: D5-NS with KCL 20 mEq/L 1000 ml Route: IV; Rate: 125 ml/hr; Site: left forearm; sv 15:05 Follow up: Response: No adverse reaction; IV Status: Infusion continued upon admission sv 12:35 Drug: NS 0.9% 1000 ml Route: IV; Rate: 1000 ml; Site: right forearm; sv 13:37 Follow up: Response: No adverse reaction; IV Status: Completed infusion; IV Intake: sv 1000ml 13:15 Drug: Levophed (4 mg/250 mL D5W 4 mcg/min {Note: started at 5mcg/min.} Route: IV; Rate: sv calculated rate; Site: right femoral; 13:30 Follow up: Response: No adverse reaction; Rate change 7 calculated rate sv 13:45 Follow up: Response: No adverse reaction; Rate change 10 calculated rate sv 14:49 Follow up: Response: No adverse reaction; Rate change 12 calculated rate sv 15:05 Follow up: Response: No adverse reaction; IV Status: Infusion continued upon admission sv Intake: 11:00 IV: 100ml; Total: 100ml. sv 12:26 IV: 1000ml; Total: 1100ml. ss 13:16 IV: 100ml; Total: 1200ml. sv 13:37 IV: 1000ml; Total: 2200ml. sv Outcome: 11:58 Decision to Hospitalize by Provider. rn 15:05 Admitted to ICU accompanied by nurse, accompanied by tech, via stretcher, room ER ICU sv 9, with oxygen, on monitor, with chart, Report called to Mariah HOLLAND 15:05 Condition: stable 15:05 Instructed on the need for admit. 15:12 Patient left the ED. ss Signatures: Dispatcher [employer] Gloria Gaviria RN RN sv Nieto, Roman, MD MD rn [facility], Kelsey, RN RN ss Dana Greenfield RN RN ph Martha Hawley [facility] Mary Lee RN RN vg1 Corrections: (The following items were deleted from the chart) 10:30 10:29 Reassessment: Pt taken to CT, accompanied by Kelsey HOLLAND and RT ph ph 13:16 13:15 Levophed (4 mg/250 mL D5W 4 mcg/min IV at calculated rate in right femoral sv sv 13:34 11:30 BP 102 / 54; Pulse 75bpm; Resp 18bpm; Pulse Ox 100%; sv sv 13:34 11:45 BP 97 / 49; Pulse 66bpm; Resp 18bpm; Pulse Ox 100%; sv sv 13:34 12:00 BP 92 / 45; Pulse 67bpm; Resp 16bpm; Pulse Ox 100%; sv sv 13:34 12:15 BP 78 / 44; Pulse 67bpm; Resp 18bpm; Pulse Ox 100%; sv sv 13:34 12:30 BP 66 / 40; Pulse 70bpm; Resp 21bpm; Pulse Ox 98%; sv sv 13:34 12:45 BP 83 / 71; Pulse 71bpm; Resp 20bpm; Pulse Ox 100%; sv sv 13:34 13:00 BP 75 / 27; Pulse 70bpm; Resp 21bpm; Pulse Ox 100%; sv sv 13:34 13:10 BP 90 / 57; Pulse 66bpm; Resp 19bpm; Pulse Ox 100%; sv sv 13:34 13:30 BP 86 / 58; Pulse 67bpm; Resp 16bpm; Pulse Ox 100% ET / Ventilator; sv sv 13:36 11:15 Respiratory: Airway via oral intubation Respiratory effort is even, unlabored, sv Respiratory pattern is regular, symmetrical, sv 13:36 11:15 GI: Abdomen is distended, sv sv 13:39 11:30 BP 102 / 54; Pulse 75bpm; Resp 18bpm; Pulse Ox 100% FiO2 60% vent; sv sv 13:39 12:30 BP 66 / 40; Pulse 70bpm; Resp 21bpm; Pulse Ox 98% FiO2 60% vent; sv sv 13:39 13:00 BP 75 / 27; Pulse 70bpm; Resp 21bpm; Pulse Ox 100% FiO2 60% vent; sv sv 19:21 12:00 BP 92 / 45; Pulse 67bpm; Resp 16bpm; Pulse Ox 100% FiO2 60% vent; sv sv 19:21 15:00 BP 103 / 46; Pulse 76bpm; Resp 16bpm; Pulse Ox 100% FiO2 60% vent; Temp 97.4F sv Catheter; sv 19:21 14:05 BP 96 / 41; Pulse 69bpm; Resp 16bpm; Pulse Ox 100% FiO2 60% vent; Temp 96.9F sv Catheter; sv 19: 14:35 BP 97 / 42; Pulse 72bpm; Resp 16bpm; Pulse Ox 100% FiO2 60% vent; Temp 97.1F sv Catheter; sv
[2020-01-08] MEDS ORDERED: ONDANSETRON 4 MG/2 ML VIAL IV PRN (12:35)
--- NOTE | 2020-01-08 12:40 | RAD REPORT ---
EXAM DESCRIPTION: Kathy Angio01/08/2020 12:25 pm CLINICAL HISTORY: Syncope/seizure COMPARISON: None TECHNIQUE: 50 cc Isovue 370 was administered intravenously. 3D MIP reconstruction performed All CT scans are performed using dose optimization technique as appropriate and may include automated exposure control or mA/KV adjustment according to patient size. FINDINGS: The internal carotid arteries bilaterally are very tortuous. Mild calcified plaque is pres ent within the common and internal carotid arteries bilaterally. Mild plaque is present within the vertebral arteries. The right vertebral artery is a little bit more dominant than the left. 6.7 centimeter mass is present within the subcutaneous tissue of the upper left posterior back IMPRESSION: Mild plaque within the carotid and vertebral arteries NASCET criteria used. Mild 0-49% stenosis Moderate 50-69% stenosis Severe 70-99% stenosis 6.7 centimeter mass is present within the subcutaneous tissue of the upper left posterior back. Ultra sound recommended for further evaluation
--- NOTE | 2020-01-08 12:42 | RAD REPORT ---
EXAM DESCRIPTION: CTHead angio01/08/2020 12:18 pm CLINICAL HISTORY: Syncope/seizure COMPARISON: None TECHNIQUE: CT angiogram of the head was obtained. 3D MIPS reconstruction performed. All CT scans are performed using dose optimization technique as appropriate and may include automated exposure control or mA/KV adjustment according to patient size. FINDINGS: The basilar, internal carotid, anterior cerebral, middle cerebral and posterior cerebral a rteries are normal caliber. An aneurysm is not seen. A significant stenosis is not noted. IMPRESSION: Unremarkable CT angiogram head.
[2020-01-08] MEDS: NA CHLORIDE 0.9% 1,000 ML IV SCH ×2 (13:00→15:36)
[2020-01-08] MEDS ORDERED: NOREPINEPHRINE 4mg/D5W 250mL 4 MG/250 ML BAG IV ONE (13:09)
[2020-01-08] MEDS: ALBUTEROL 2.5 MG/3 ML NEB SOL NEB SCH ×2 (14:00→20:35)
[2020-01-08] MEDS: IPRATROPIUM BROM 0.5MG/2.5ML NEB SCH ×2 (14:00→20:35)
[2020-01-08] MEDS ORDERED: propofoL 1,000 MG/100 ML VIAL IV PRN (15:24)
[2020-01-08] MEDS: levETIRAcetam 1,000 MG in NA CHLORIDE 0.9% 100 ML IV SCH (15:27)
[2020-01-08] MEDS ORDERED: NA CHLORIDE 0.9% 1,000 ML IV ONE (15:29)
[2020-01-08] MEDS: CEFTRIAXONE/SWI 1gm 1 GM/10 ML SYR IV SCH ×2 (15:37→20:59)
[2020-01-08] MEDS: KCL 20 MEQ/100 mL IVPB 20 MEQ/100 ML BAG IV SCH ×2 (15:47→17:37)
[2020-01-08] MEDS ORDERED: CEFTRIAXONE/SWI 1gm 1 GM/10 ML SYR ONE ×2 (15:50→20:50)
[2020-01-08 16:47] VITALS: BMI 38.4
[2020-01-08 17:59] LABS: Thyroid Stimulating Hormone 2.13 uIU/mL (0.360-3.740)
[2020-01-08] MEDS ORDERED: INFLUENZA VACCINE (for 3y+) 0.5 ML DOSE IMVAC ONE (18:00)
[2020-01-08] MEDS ORDERED: Magnesium Sulfate 2gm IVPB 2 G/50 ML BAG IV ONE ×3 (18:32→23:51)
[2020-01-08] MEDS ORDERED: IPRATROPIUM BROM 0.5MG/2.5ML ONE (20:44)
[2020-01-08] MEDS ORDERED: ALBUTEROL 2.5 MG/3 ML NEB SOL ONE (20:44)
[2020-01-08] MEDS ORDERED: FAMOTIDINE 20 MG/2 ML VIAL IV ONE (20:50)
[2020-01-08] MEDS: FAMOTIDINE 20 MG/2 ML VIAL IV SCH (20:59)
[2020-01-08] MEDS ORDERED: CEFTRIAXONE 1 GM/NS 50 ML 1 GM/50 ML BAG IV SCH (21:00)
[2020-01-08] MEDS: D5NS KCL 20MEQ 1,000 ML IV SCH (21:00)
[2020-01-08 23:42] LABS: Phosphorus 0.9 mg/dL (2.5-4.9)
[2020-01-08 23:43] LABS: Magnesium 1.4 mg/dL (1.8-2.4)
[2020-01-08] MEDS: NOREPINEPHRINE 4 MG in D5W 250 ML IV PRN (23:55)
[2020-01-09] MEDS: KCL 20 MEQ/100 mL IVPB 20 MEQ/100 ML BAG IV SCH ×6 (00:04→19:02)
[2020-01-09] MEDS: levETIRAcetam 1,000 MG in NA CHLORIDE 0.9% 100 ML IV SCH ×2 (00:04→14:13)
[2020-01-09] MEDS ORDERED: KCL 20 MEQ/100 mL IVPB 60 MEQ/300 ML BAG IV ONE (00:15)
[2020-01-09] MEDS ORDERED: Magnesium Sulfate 2gm IVPB 2 G/50 ML BAG IV ONE (00:15)
[2020-01-09] MEDS: ALBUTEROL 2.5 MG/3 ML NEB SOL NEB SCH ×4 (00:41→19:55)
[2020-01-09] MEDS: IPRATROPIUM BROM 0.5MG/2.5ML NEB SCH ×4 (00:41→19:55)
[2020-01-09] MEDS ORDERED: ALBUTEROL 2.5 MG/3 ML NEB SOL ONE ×4 (00:50→20:31)
[2020-01-09] MEDS ORDERED: IPRATROPIUM BROM 0.5MG/2.5ML ONE ×4 (00:50→20:32)
[2020-01-09] MEDS ORDERED: POTASSIUM PHOS IN 0.9 % NACL 15 MMOL/250 ML BAG IV ONE ×4 (02:27→19:00)
[2020-01-09] MEDS ORDERED: KCL 20 MEQ/100 mL IVPB 20 MEQ/100 ML BAG IV ONE ×3 (02:27→22:35)
[2020-01-09] MEDS: D5NS KCL 20MEQ 1,000 ML IV SCH ×3 (05:00→17:52)
[2020-01-09 05:04] LABS: Arterial Blood Carboxyhemoglob 1.2 % (0-1.5); Blood Gas Oxyhemoglobin 97.7 % (94-97); Blood O2 Saturation 99.6 % (92-98.5)
[2020-01-09 05:54] LABS: Absolute Lymphocytes (CBC) 1.9 K/uL (0.7-4.9); Hematocrit 25.7 % (39.6-49.0); Lymphocytes % 15.4 % (15.3-44.8); MPV 8.9 fL (7.6-11.3); RBC Red Blood Cell Count 2.87 M/uL (4.33-5.43)
[2020-01-09 06:28] LABS: ALT/SGPT 21 U/L (12-78); AST/SGOT 51 U/L (15-37); Albumin 1.4 g/dL (3.4-5.0); Alkaline Phosphatase 67 U/L (45-117); BUN Blood Urea Nitrogen 3 mg/dL (7-18); Bicarbonate 34 mmol/L (21-32); Bilirubin Total 1.6 mg/dL (0.2-1.0); Glucose Level 124 mg/dL (74-106); Magnesium 1.8 mg/dL (1.8-2.4); NT PRO-BNP 1152 pg/mL (<125); Phosphorus 1.9 mg/dL (2.5-4.9); Protein, Total 5.6 g/dL (6.4-8.2); Sodium Level 135 mmol/L (136-145)
[2020-01-09 06:34] LABS: Potassium 1.8 mmol/L (3.5-5.1)
[2020-01-09] MEDS ORDERED: ALBUMIN HUMAN 25% 200 ML IV ONE (07:05)
[2020-01-09] MEDS ORDERED: HYDROCORTISONE SUC 100 MG INJ IV ONE (07:06)
[2020-01-09] MEDS ORDERED: SPIRONOLACTONE 25 MG TABLET PO ONE (07:07)
--- NOTE | 2020-01-09 07:32 | RAD REPORT ---
EXAM DESCRIPTION: RAD - Chest Single View - 01/09/2020 6:09 am CLINICAL HISTORY: pneumonia COMPARISON: January 07 TECHNIQUE: AP portable chest image was obtained 01/09/2020 6:09 am . FINDINGS: Lung volumes are low. Patchy airspace opacification is present in the lower left lung fiel d. Infiltrate and atelectasis can have the same appearance in this setting. Findings appear progressi ve and can be monitored on follow-up imaging. Endotracheal tube is in good position. Tip is mid aortic arch level. NG tube extends below the diaphr agm. Heart size is increased slightly from comparison. Central vasculature is slightly more prominent. No measurable pleural effusion and no pneumothorax. No acute bony abnormality seen. No acute aortic fin dings suspected. IMPRESSION: Endotracheal tube and NG tube are in good position. Heart size and vasculature are increased fractionally from comparison. Patient can be monitored for a ny developing failure or volume overload. Increased left base opacification is probably atelectasis but patient can be monitored for developing infiltrate.
[2020-01-09] MEDS ORDERED: HYDROCORTISONE SUC 100 MG INJ ONE (08:07)
[2020-01-09] MEDS ORDERED: ENOXAPARIN 40 MG/0.4 ML SQ ONE (08:07)
[2020-01-09] MEDS ORDERED: FAMOTIDINE 20 MG/2 ML VIAL IV ONE ×2 (08:07→20:27)
[2020-01-09] MEDS: ENOXAPARIN 40 MG/0.4 ML SQ SCH (08:08)
[2020-01-09] MEDS: ALBUMIN HUMAN 25% 100 ML IV SCH (08:08)
[2020-01-09] MEDS: FAMOTIDINE 20 MG/2 ML VIAL IV SCH ×2 (08:09→20:26)
[2020-01-09] MEDS: CEFTRIAXONE/SWI 1gm 1 GM/10 ML SYR IV SCH ×2 (08:12→20:27)
[2020-01-09] MEDS: NOREPINEPHRINE 4 MG in D5W 250 ML IV PRN (08:13)
--- NOTE | 2020-01-09 08:14 | P.HP ---
Certification for Inpatient Patient admitted to: Inpatient With expected LOS: >2 Midnights Patient will require the following post-hospital care: None Practitioner: I am a practitioner with admitting privileges, knowledge of patient current condition, hospital course, and medical plan of care. Services: Services provided to patient in accordance with Admission requirements found in Title 42 Section 412.3 of the Code of Federal Regulations Patient History Date of Service: 01/08/20 Reason for admission: Status epilepticus with respiratory failure History of Present Illness: Patient is a 69 year old gentleman who came to the hospital with status epilepticus. Patient was brought into the emergency room and he was difficult to arouse. He apparently had fallen a couple of months ago. He hit his head and facial trauma. He did not need any surgeries. He had recovered fairly well from that fall. There were no other episodes and he had refrain from drinking for quite a while. His noted that he has started drinking a there to ago. He also has a history of cocaine abuse. He has never had a seizure from her recollection. He was unresponsive when they brought him into the hospital, and he had another seizure. At that point, patient is intubated. Patient also has severe hypokalemia. He was started on replacement. Patient also became slightly hypotensive so he was started on vasopressors. Patient is on Lasix at home but does not take potassium supplementation nor does he take Aldactone. I am not sure if he was over diuresed. He is not doing well at this time and we will get repeat CT of the brain and an EEG. Will see if we are able to get an MRI even though he is on a ventilator. I am not sure if we have the equipment to get this done but we will look into it. Neurology and Pulmonary consultation will also be placed. Allergies No Known Allergies Allergy (Unverified 06/15/18 11:11) Home Medications: Atorvastatin Calcium [Lipitor] 80 mg PO DAILY 06/15/18 Clopidogrel Bisulfate [Plavix*] 75 mg PO DAILY 06/15/18 Furosemide [Lasix*] 40 mg PO DAILY 06/15/18 B Complex with Vitamin C [Vitamin B-Complex with Vit C] 1 each PO DAILY 01/08/20 Clonidine HCl [Catapres] 0.1 mg PO BID 01/08/20 - Past Medical/Surgical History Has patient received pneumonia vaccine in the past: Yes Diabetic: No -: stroke-2014 -: high cholesterol -: high blood pressure -: hepatitis c -: cellulitis to legs -: sleep apnea -: hernia repair - Family History Father Medical History: Heart disease - Social History Smoking Status: Current every day smoker Alcohol use: Yes CD- Drugs: Yes Caffeine use: No Review of Systems is unable to be obtained Physical Examination - Vital Signs Temperature: 99.1 F Blood Pressure: 98/44 Pulse: 79 Respirations: 16 Pulse Ox (%): 100 - Physical Exam General: Unresponsive, Other (Intubated) HEENT: Atraumatic, Normocephalic Neck: Supple, 2+ carotid pulse no bruit, JVD not distended Respiratory: Diminished Cardiovascular: Regular rate/rhythm, Normal S1 S2 Gastrointestinal: Normal bowel sounds, Soft and benign, Non-distended, No tenderness, Other (Umbilical hernia) Musculoskeletal: No clubbing, No swelling Integumentary: Other (Multiple areas of bruising and venous stasis) Neurological: Other (Patient is intubated and sedated. Withdraw a little bit but is not responding to verbal stimuli or to painful stimuli except for slight withdrawal) - Studies Laboratory Data (last 24 hrs) 01/08/20 10:12: PT 14.2 H, INR 1.21, APTT 29.0 01/08/20 10:12: WBC 14.8 H, Hgb 11.3 L, Hct 32.1 L, Plt Count 216 01/08/20 10:12: Sodium 130 L, Potassium 2.0 L*, BUN 6 L, Creatinine 1.08, Glucose 165 H Assessment & Plan - Problems (Diagnosis) (1) Status epilepticus Current Visit: Yes Status: Acute (2) Respiratory failure Current Visit: Yes Status: Acute (3) History of alcohol abuse Current Visit: Yes Status: Acute (4) History of cocaine abuse Current Visit: Yes Status: Acute (5) History of hepatitis C Current Visit: Yes Status: Acute (6) History of stroke Current Visit: Yes Status: Acute - Plan Plan: 1. Continue with anti epileptics 2. Continue with vent support 3. Continue with vasopressor support 4. Replace potassium 5. Check thyroid studies and cortisol study 6. EEG 7. Pulmonary consultation and neurology consultation 8. Repeat CT scan if no neurologic changes 9. IV antibiotic therapy 10. Alcohol level 11. GI and DVT prophylaxis Discharge Plan: Home Plan to discharge in: Greater than 2 days - Advance Directives Does patient have a Living Will: No Does patient have a Durable POA for Healthcare: No - Code Status/Comfort Care Code Status Assessed: Yes Code Status: Full Code Critical Care: Yes Time Spent Managing PTS Care (In Minutes): 60
[2020-01-09 10:18] LABS: Barbiturates NEGATIVE (NEGATIVE); Benzodiazepines NEGATIVE (NEGATIVE); Cocaine NEGATIVE (NEGATIVE); METHAMPHETAM NEGATIVE (NEGATIVE); Methadone NEGATIVE (NEGATIVE); Opiates NEGATIVE (NEGATIVE); Phencyclidine NEGATIVE (NEGATIVE); THC Cannibis NEGATIVE (NEGATIVE)
[2020-01-09] MEDS ORDERED: MAGNESIUM SULFATE 1 gm IVPB 1 GM/100 ML BAG IV ONE ×2 (11:58→12:53)
--- NOTE | 2020-01-09 12:07 | P.CNS ---
Date of Consult: 01/09/20 Reason for Consult: Respiratory failure on a ventilator Chief Complaint: Status epilepticus with respiratory failure History of Present Illness: Patient is 69 years of age admitted with status epilepticus as currently on a ventilator unresponsive no prior history of seizures although he has had a stroke before with severe electrolyte imbalance severe hypokalemia and hypomagnesemia recent history of falls history of alcohol abuse patient was also hypotensive is been taking diuretics at home Allergies No Known Allergies Allergy (Unverified 06/15/18 11:11) Home Medications: Atorvastatin Calcium [Lipitor] 80 mg PO DAILY 06/15/18 Clopidogrel Bisulfate [Plavix*] 75 mg PO DAILY 06/15/18 Furosemide [Lasix*] 40 mg PO DAILY 06/15/18 B Complex with Vitamin C [Vitamin B-Complex with Vit C] 1 each PO DAILY 01/08/20 Clonidine HCl [Catapres] 0.1 mg PO BID 01/08/20 - Past Medical/Surgical History Diabetic: No -: stroke-2014 -: high cholesterol -: high blood pressure -: hepatitis c -: cellulitis to legs -: sleep apnea -: hernia repair - Family History Father Medical History: Heart disease - Social History Smoking Status: Unknown if ever smoked Alcohol use: Yes CD- Drugs: Yes Caffeine use: No Review of Systems is unable to be obtained Physical Examination Temp Pulse Resp BP Pulse Ox 99.1 F 79 16 98/44 L 100 01/09/20 08:20 01/09/20 08:20 01/09/20 08:20 01/09/20 08:20 01/09/20 08:20 General: Unresponsive Respiratory: Clear to auscultation bilaterally (Bilateral edema) Cardiovascular: Edema Gastrointestinal: Soft and benign - Problems (1) Status epilepticus Current Visit: Yes Status: Acute Plan: Patient is 69 years of age admitted with status epilepticus severe electrolyte imbalance hypokalemia hypomagnesemia no evidence of any trauma minimal carotid artery disease as currently on Keppra aggressive electrolyte replacement chest x-rays clear I have added blood cultures he will need aggressive electrolyte replacement the be the cause of his seizures is a history of alcoholism doubt sepsis continue with fluid boluses I have added IV thymine as no prior history of seizures before change him over to SIMV pressure support
[2020-01-09] MEDS ORDERED: POTASSIUM 25 MEQ EFFERV TAB PO ONE (12:26)
[2020-01-09] MEDS: THIAMINE 200 MG/2 ML INJ IVP SCH ×2 (12:44→20:25)
[2020-01-09] MEDS ORDERED: POTASSIUM CL SA 10 MEQ TAB PO ONE (12:53)
[2020-01-09] MEDS ORDERED: THIAMINE 200 MG/2 ML INJ ONE ×2 (12:53→20:33)
[2020-01-09] MEDS ORDERED: POTASSIUM 25 MEQ EFFERV TAB ONE (12:54)
[2020-01-09 14:17] LABS: Arterial Blood Carboxyhemoglob 1.4 % (0-1.5); Blood Gas Oxyhemoglobin 89.8 % (94-97); Blood O2 Saturation 91.8 % (92-98.5)
[2020-01-09] MEDS ORDERED: ETOMIDATE 20 MG/10 ML VIAL IV ONE (14:51)
[2020-01-09] MEDS ORDERED: ROCURONIUM 50 MG/5 ML VIAL IV ONE (14:51)
[2020-01-09 18:19] LABS: BUN Blood Urea Nitrogen 3 mg/dL (7-18); Bicarbonate 31 mmol/L (21-32); Glucose Level 171 mg/dL (74-106); Magnesium 2.2 mg/dL (1.8-2.4); Phosphorus 2.2 mg/dL (2.5-4.9); Sodium Level 137 mmol/L (136-145)
[2020-01-09 18:21] LABS: Potassium 2.3 mmol/L (3.5-5.1)
--- NOTE | 2020-01-09 18:50 | CON ---
Reason For Consultation: Consultation called because of status epilepticus. The patient is actually intubated at this point and is unable to give a history. History is obtained from chart review and discussion with the nursing staff and the consulting physician. History Of Present Illness: Mr. German is a 69-year-old right-handed patient with dyslipide alo, hypertension, history of chronic alcohol abuse and cocaine abuse, who was reportedly found unres ponsive after drinking alcohol. The patient was brought to [facility], found to have multip le electrolyte abnormalities and actually had multiple seizures. He was responsive at [facility] and prior to coming in, apparently had a seizure that had [id number] episodes. He was hypote nsive, requiring pressors and was intubated for his airway protection and given Keppra 1 g and has be en put on a 1000 mg twice a day. Since the treatment with Keppra, he has been in the ICU and not not ed to have additional seizure activity. The patient has not been awake since the seizures overnight. His head CT scan showed no acute ischemic or hemorrhagic change, however, there were low-density ar eas in the left basal ganglia, left frontal lobe, and left occipital and parietal lobes compatible wi th multiple old infarcts. CT angiogram of the head showed no abnormalities and CT angiogram of the n estefani showed mild plaque in the carotid and vertebral arteries. As indicated, he did have blood abnorm alities. White blood cell count was elevated to 14.8 with 97.6 neutrophils, hemoglobin was down to 1 1.3 and after hydration 9.2. INR 1.21. PH on admission was 7.66, this is after intubation; pCO2 of 29 and pO2 was up to 174. His chemistries did show low potassium of 1.4, sodium 130, chloride 94, BU N was low at 3, glucose ranged up to 124. Lactic acid elevated at 3.3, calcium low at 6.5, magnesium low at 1.4, phosphorus low at 0.9. AST elevated at 51. His urine tox screen was negative. Past Medical History: As indicated including multiple strokes, hypertension, dyslipidemia, chronic a lcohol use, hepatitis C, leg cellulitis, obstructive sleep apnea. Past Surgical History: Hernia repair. Family History: Heart disease in father. Social History: The patient drinks alcohol regularly, uses illegal drugs, and smokes tobacco, cigare ttes. Review of Systems: Not possible as the patient is intubated and not responsive. Physical Examination: Vital Signs: Blood pressure 88/51, pulse of 74, respiratory rate 13 to 19, temperature 97.6, oxygen saturation 100%. He is 210 pounds and 5 feet 2 inches with a BMI of 38.4. Neurologic: Mr. German is intubated and not responsive at this point to verbal stimulation. He is c urrently having an EEG done. The tone appears normal in the extremities. Laboratory Data: The EEG did show periodic epileptiform discharges in the left central parietal roberto on. Assessment: 1.Mr. German is a 69-year-old patient with status epilepticus. His EEG does show periodic lateraliz ed epileptiform discharges in the right central temporal region. He is on Keppra 1000 mg twice daily , about to receive another gram of Keppra. As the patient is weaned off intubation, if he has more c linical events, we will give fosphenytoin 1 g followed by 100 mg every 8 hours IV. The patient's aarti ctrolyte abnormality should be corrected as they would increase the chances of ongoing seizures and s eizure activity. 2.Comorbid condition should be addressed aggressively as well. Also DVT prophylaxis with Lovenox, c ontinue with 40 mg subcutaneously daily, and Rocephin to cover potential MEDICAL RECORDS SPECIALIST involvement in terms of infection and systemic infection as well. LB/MODL Voice ID: [id number] Report ID: [id number]
[2020-01-09] MEDS ORDERED: KCL 20 MEQ/100 mL IVPB 20 MEQ/100 ML BAG IV SCH ×2 (19:00→23:00)
[2020-01-09] MEDS: FENTANYL CITR 100 MCG/2 ML IV PRN (20:25)
[2020-01-09] MEDS ORDERED: CEFTRIAXONE 1000 MG/VIAL ONE (20:27)
[2020-01-09] MEDS ORDERED: FENTANYL CITR 100 MCG/2 ML ONE (20:36)
[2020-01-09] MEDS: LORazepam 2 MG/ML VIAL IV PRN (22:27)
[2020-01-09] MEDS ORDERED: LORazepam 2 MG/ML VIAL ONE (22:39)
[2020-01-10] MEDS: levETIRAcetam 1,000 MG in NA CHLORIDE 0.9% 100 ML IV SCH ×2 (00:51→13:10)
[2020-01-10] MEDS: IPRATROPIUM BROM 0.5MG/2.5ML NEB SCH ×4 (01:15→19:41)
[2020-01-10] MEDS: ALBUTEROL 2.5 MG/3 ML NEB SOL NEB SCH ×4 (01:15→19:41)
[2020-01-10] MEDS ORDERED: IPRATROPIUM BROM 0.5MG/2.5ML ONE ×4 (01:26→19:52)
[2020-01-10] MEDS ORDERED: ALBUTEROL 2.5 MG/3 ML NEB SOL ONE ×4 (01:26→19:52)
[2020-01-10] MEDS: LORazepam 2 MG/ML VIAL IV PRN ×3 (02:37→20:06)
[2020-01-10] MEDS ORDERED: LORazepam 2 MG/ML VIAL ONE ×3 (02:47→20:14)
[2020-01-10] MEDS ORDERED: HALOPERIDOL LACT 5 MG/ML INJ ONE ×2 (04:11→14:23)
[2020-01-10] MEDS: HALOPERIDOL LACT 5 MG/ML INJ IV PRN ×2 (04:34→14:12)
[2020-01-10] MEDS: KCL 20 MEQ/100 mL IVPB 20 MEQ/100 ML BAG IV SCH ×5 (04:37→16:37)
[2020-01-10] MEDS ORDERED: KCL 20 MEQ/100 mL IVPB 20 MEQ/100 ML BAG IV ONE ×4 (04:50→16:46)
[2020-01-10] MEDS: NOREPINEPHRINE 4 MG in D5W 250 ML IV PRN ×3 (05:17→21:31)
[2020-01-10 05:40] LABS: BUN Blood Urea Nitrogen 4 mg/dL (7-18); Bicarbonate 30 mmol/L (21-32); Glucose Level 149 mg/dL (74-106); Phosphorus 2.5 mg/dL (2.5-4.9); Sodium Level 141 mmol/L (136-145)
[2020-01-10 05:44] LABS: Potassium 2.3 mmol/L (3.5-5.1)
[2020-01-10 05:57] LABS: Arterial Blood Carboxyhemoglob 1.5 % (0-1.5); Blood Gas Oxyhemoglobin 88.9 % (94-97)
[2020-01-10] MEDS: D5NS KCL 20MEQ 1,000 ML IV SCH ×4 (06:10→21:00)
--- NOTE | 2020-01-10 07:17 | RAD REPORT ---
EXAM DESCRIPTION: RAD - Chest Single View - 01/10/2020 5:11 am CLINICAL HISTORY: vented, respiratory distress COMPARISON: January 08 TECHNIQUE: AP portable chest image was obtained 01/10/2020 5:11 am . FINDINGS: Endotracheal tube is in place in good position. NG tube is in place extending below the di aphragm, off the field of view. Heart size is normal and stable. Perihilar vascular engorgement is se en. Interstitial opacification present. There is increased hazy opacification over both lower lung fi eld suspicious for developing pleural effusion. Mediastinum is widened by rotation. No pneumothorax. No acute bony abnormality seen. No acute aortic findings suspected. IMPRESSION: Failure/ volume overload pattern is evident with development of bilateral pleural effusi ons.
[2020-01-10] MEDS ORDERED: POTASSIUM PHOS IN 0.9 % NACL 15 MMOL/250 ML BAG IV ONE (08:00)
--- NOTE | 2020-01-10 08:00 | P.PN ---
Subjective Date of Service: 01/09/20 Patient with no significant changes. Patient is not actually waking up that well at this point. EEG is pending. Repeat CT of the brain. Continue to monitor neurologic status closely. Review of Systems is unable to be obtained Physical Examination - Vital Signs Temperature: 98.5 F Blood Pressure: 91/41 Pulse: 93 Respirations: 24 Pulse Ox (%): 96 - Physical Exam General: Other (Patient is intubated and sedated) Respiratory: Diminished, Rhonchi/gurgles Cardiovascular: Regular rate/rhythm, Normal S1 S2, No murmurs Gastrointestinal: Normal bowel sounds, Soft and benign, Non-distended Musculoskeletal: No clubbing, No swelling Integumentary: No rashes Neurological: Other (Moves left upper extremities more so than the right side) Assessment & Plan - Problems (Diagnosis) (1) Status epilepticus Current Visit: Yes Status: Acute (2) Respiratory failure Current Visit: Yes Status: Acute (3) History of alcohol abuse Current Visit: Yes Status: Acute (4) History of cocaine abuse Current Visit: Yes Status: Acute (5) History of hepatitis C Current Visit: Yes Status: Acute (6) History of stroke Current Visit: Yes Status: Acute - Plan Plan: Continue with plan of care as mentioned below 1. Continue with antiepileptics 2. Continue with vent support 3. Continue with vasopressor support 4. Replace potassium 5. Check thyroid studies and cortisol study 6. EEG pending 7. Pulmonary consultation and neurology consultation appreciated 8. Repeat CT scan if no neurologic improvement 9. Continue with IV antibiotic therapy 10. GI and DVT prophylaxis Discharge Plan: Home Plan to discharge in: Greater than 2 days - Advance Directives Does patient have a Living Will: No Does patient have a Durable POA for Healthcare: No - Code Status/Comfort Care Code Status: Full Code Critical Care: Yes Time Spent Managing PTS Care (In Minutes): 45
--- NOTE | 2020-01-10 08:03 | P.PN ---
Subjective Date of Service: 01/10/20 Patient had a repeat EEG today. Results are pending. The 1st EEG report still showed epileptiform discharges. Most likely reason patient was not more awake and alert. Patient remains on ventilator. He does get tachypneic today as compared to yesterday where he was not able to breathe over the ventilat or.CXR with infiltrates; continue w/ broad spectrum antibiotics Review of Systems 10-point ROS is otherwise unremarkable Physical Examination - Vital Signs Temperature: 98.5 F Blood Pressure: 91/41 Pulse: 93 Respirations: 24 Pulse Ox (%): 96 - Physical Exam General: Other (intubated and sedated) Respiratory: Rhonchi/gurgles Cardiovascular: Regular rate/rhythm, Normal S1 S2, No murmurs Gastrointestinal: Normal bowel sounds, Soft and benign, Non-distended, No tenderness Musculoskeletal: No clubbing, No swelling, No tenderness Integumentary: No rashes Neurological: Sensation intact, Cranial nerves 3-12 intact, Other ( Moves all extremities. Response to pain in all 4 extremities) - Studies Medications List Reviewed: Yes Assessment & Plan - Problems (Diagnosis) (1) Status epilepticus Current Visit: Yes Status: Acute (2) Respiratory failure Current Visit: Yes Status: Acute (3) History of alcohol abuse Current Visit: Yes Status: Acute (4) History of cocaine abuse Current Visit: Yes Status: Acute (5) History of hepatitis C Current Visit: Yes Status: Acute (6) History of stroke Current Visit: Yes Status: Acute (7) Pseudomonas pneumonia Current Visit: Yes Status: Acute (8) Respiratory failure Current Visit: Yes Status: Acute Qualifiers: Chronicity: acute - Plan Plan: Continue with plan of care as mentioned below 1. Continue with antiepileptics 2. Continue with vent support along with antibiotic therapy 3. weaned off vasopressor support 4. Replace potassium 5. Check thyroid studies and cortisol study 6. repeat EEG pending 7. Pulmonary consultation and neurology consultation appreciated 8. Repeat CT scan if no neurologic improvement 9. Continue with IV antibiotic therapy 10. GI and DVT prophylaxis Discharge Plan: LTAC Plan to discharge in: Greater than 2 days - Advance Directives Does patient have a Living Will: No Does patient have a Durable POA for Healthcare: No - Code Status/Comfort Care Code Status: Full Code Critical Care: No Time Spent Managing PTS Care (In Minutes): 35
[2020-01-10] MEDS: ENOXAPARIN 40 MG/0.4 ML SQ SCH (08:43)
[2020-01-10] MEDS: POTASSIUM 25 MEQ EFFERV TAB PO SCH ×2 (08:43→20:06)
[2020-01-10] MEDS: FAMOTIDINE 20 MG/2 ML VIAL IV SCH ×2 (08:44→20:07)
[2020-01-10] MEDS: THIAMINE 200 MG/2 ML INJ IVP SCH ×2 (08:44→20:06)
[2020-01-10] MEDS: CEFTRIAXONE/SWI 1gm 1 GM/10 ML SYR IV SCH ×2 (08:44→20:06)
[2020-01-10] MEDS ORDERED: CEFTRIAXONE/SWI 1gm 1 GM/10 ML SYR ONE ×2 (08:51→20:14)
[2020-01-10] MEDS ORDERED: THIAMINE 200 MG/2 ML INJ ONE ×2 (08:51→20:14)
[2020-01-10] MEDS ORDERED: ENOXAPARIN 40 MG/0.4 ML SQ ONE (08:51)
[2020-01-10] MEDS ORDERED: FAMOTIDINE 20 MG/2 ML VIAL IV ONE ×2 (08:51→20:14)
[2020-01-10] MEDS ORDERED: POTASSIUM 25 MEQ EFFERV TAB ONE ×3 (08:51→23:11)
[2020-01-10 10:47] LABS: Arterial Blood Carboxyhemoglob 1.5 % (0-1.5); Blood Gas Oxyhemoglobin 87.4 % (94-97); Blood O2 Saturation 89.3 % (92-98.5)
--- NOTE | 2020-01-10 12:11 | P.PN ---
Subjective Date of Service: 01/10/20 Chief Complaint: Status epilepticus with respiratory failure No change in patient's condition is still gets agitated at the ventilating as x- ray of volume overload patient still continues to remain severely hypokalemic potassium is been currently replaced he gets very tachypneic agitated the tried SIMV pressure control stable on assist-control will answer some respiratory alkalosis Review of Systems is unable to be obtained Physical Examination - Vital Signs Temperature: 98.5 F Blood Pressure: 145/131 Pulse: 106 Respirations: 25 Pulse Ox (%): 97 - Physical Exam General: Alert (Patient will open his eyes) Neck: Supple Respiratory: Crackles/rales Cardiovascular: No edema, Regular rate/rhythm Assessment & Plan - Problems (Diagnosis) (1) Status epilepticus Current Visit: Yes Status: Acute Plan: Patient admitted with seizures his severe hypokalemia that is been currently replaced Keppra seen by neurology this have some EEG changes (2) Respiratory failure Current Visit: Yes Status: Acute Plan: Patient appears to have some pulmonary edema probably the reason why he is so tachypneic he has a respiratory alkalosis continued aggressive potassium replacement continue with assist-control patient is agitated requiring sedation will open his eyes as some residual right-sided weakness from his prior stroke has minimal oxygen requirement Qualifiers: Chronicity: acute
[2020-01-10 15:05] LABS: BUN Blood Urea Nitrogen 4 mg/dL (7-18); Bicarbonate 30 mmol/L (21-32); Glucose Level 143 mg/dL (74-106); Magnesium 1.7 mg/dL (1.8-2.4); Phosphorus 2.9 mg/dL (2.5-4.9); Potassium 3.1 mmol/L (3.5-5.1); Sodium Level 142 mmol/L (136-145)
[2020-01-10] MEDS ORDERED: MAGNESIUM SULFATE 1 gm IVPB 1 GM/100 ML BAG IV ONE ×2 (15:17→15:40)
[2020-01-10] MEDS ORDERED: HYDROCORTISONE SUC 100 MG INJ ONE ×2 (16:46→20:13)
[2020-01-10] MEDS ORDERED: ALBUMIN HUMAN 25% 200 ML IV ONE (17:00)
[2020-01-10] MEDS ORDERED: HYDROCORTISONE SUC 100 MG INJ IV ONE (17:00)
[2020-01-10] MEDS ORDERED: SPIRONOLACTONE 25 MG TABLET PO ONE (17:00)
[2020-01-10] MEDS: HYDROCORTISONE SUC 100 MG INJ IV SCH (20:06)
[2020-01-10] MEDS ORDERED: POTASSIUM 25 MEQ EFFERV TAB PO ONE (22:51)
[2020-01-11] MEDS: levETIRAcetam 1,000 MG in NA CHLORIDE 0.9% 100 ML IV SCH ×2 (00:27→13:33)
[2020-01-11] MEDS: IPRATROPIUM BROM 0.5MG/2.5ML NEB SCH ×4 (01:30→19:50)
[2020-01-11] MEDS: ALBUTEROL 2.5 MG/3 ML NEB SOL NEB SCH ×4 (01:30→19:50)
[2020-01-11] MEDS ORDERED: ALBUTEROL 2.5 MG/3 ML NEB SOL ONE ×4 (01:40→19:59)
[2020-01-11] MEDS ORDERED: IPRATROPIUM BROM 0.5MG/2.5ML ONE ×4 (01:40→20:00)
[2020-01-11] MEDS: LORazepam 2 MG/ML VIAL IV PRN ×3 (02:01→19:30)
[2020-01-11] MEDS ORDERED: LORazepam 2 MG/ML VIAL ONE ×3 (02:07→19:47)
[2020-01-11] MEDS: HALOPERIDOL LACT 5 MG/ML INJ IV PRN ×3 (02:20→21:02)
[2020-01-11] MEDS ORDERED: HALOPERIDOL LACT 5 MG/ML INJ ONE ×3 (02:36→21:07)
[2020-01-11] MEDS: MIDAZOLAM HCL 2 MG/2 ML INJ IV PRN ×2 (02:40→16:01)
[2020-01-11] MEDS ORDERED: MIDAZOLAM HCL 2 MG/2 ML INJ ONE ×2 (02:42→15:59)
[2020-01-11] MEDS: D5NS KCL 20MEQ 1,000 ML IV SCH (05:00)
[2020-01-11 05:23] LABS: Arterial Blood Carboxyhemoglob 1.5 % (0-1.5); Blood Gas Oxyhemoglobin 86.5 % (94-97); Blood O2 Saturation 88.5 % (92-98.5)
[2020-01-11] MEDS: NOREPINEPHRINE 4 MG in D5W 250 ML IV PRN ×2 (05:26→19:02)
[2020-01-11] MEDS: FENTANYL CITR 100 MCG/2 ML IV PRN (05:30)
[2020-01-11] MEDS ORDERED: FENTANYL CITR 100 MCG/2 ML ONE (05:42)
[2020-01-11 06:05] LABS: Basophils % 0.8 % (0-1.3); Hematocrit 23.4 % (39.6-49.0); Lymphocytes % 6.7 % (15.3-44.8); MPV 9.2 fL (7.6-11.3); RBC Red Blood Cell Count 2.53 M/uL (4.33-5.43)
[2020-01-11 06:08] LABS: Protime INR 1.56
[2020-01-11 07:02] LABS: ALT/SGPT 16 U/L (12-78); AST/SGOT 31 U/L (15-37); Alkaline Phosphatase 58 U/L (45-117); BUN Blood Urea Nitrogen 5 mg/dL (7-18); Bicarbonate 31 mmol/L (21-32); Bilirubin Total 1.5 mg/dL (0.2-1.0); Folic Acid, (Folate) 0.9 ng/mL (3.1-17.5); Glucose Level 174 mg/dL (74-106); Lipase 26 U/L (73-393); NT PRO-BNP 2750 pg/mL (<125); Potassium 3.5 mmol/L (3.5-5.1); Protein, Total 5.7 g/dL (6.4-8.2); Sodium Level 141 mmol/L (136-145)
--- NOTE | 2020-01-11 07:47 | RAD REPORT ---
EXAM DESCRIPTION: RAD - Chest Single View - 01/11/2020 5:51 am CLINICAL HISTORY: ventedrespiratory distress COMPARISON: January 09 TECHNIQUE: AP portable chest image was obtained 01/11/2020 5:51 am . FINDINGS: Endotracheal tube is in good position. NG tube extends below the diaphragm, off the field of view. Diffuse airspace opacification is present most pronounced in the right upper lung field. Thi s has progressed since prior day imaging. Left lung field airspace disease has also progressed. Heart and vasculature are normal. No measurable pleural effusion and no pneumothorax. No acute bony abnormality seen. No acute aortic findings suspected. IMPRESSION: Significant worsening in the lung parenchymal opacification from pneumonia, pulmonary ed lillie or a combination.
[2020-01-11] MEDS ORDERED: POTASSIUM PHOS IN 0.9 % NACL 15 MMOL/250 ML BAG IV ONE (08:00)
[2020-01-11] MEDS ORDERED: FUROSEMIDE 20 MG/ 2ML VIAL IV ONE ×2 (08:37→11:17)
[2020-01-11] MEDS: THIAMINE 200 MG/2 ML INJ IVP SCH ×2 (09:00→20:19)
[2020-01-11] MEDS ORDERED: ALBUMIN HUMAN 25% 50 ML IV ONE ×2 (09:02→09:20)
[2020-01-11] MEDS: CEFTRIAXONE/SWI 1gm 1 GM/10 ML SYR IV SCH (09:16)
[2020-01-11] MEDS: POTASSIUM 25 MEQ EFFERV TAB PO SCH ×2 (09:16→20:20)
[2020-01-11] MEDS: FAMOTIDINE 20 MG/2 ML VIAL IV SCH ×2 (09:17→20:19)
[2020-01-11] MEDS: HYDROCORTISONE SUC 100 MG INJ IV SCH ×2 (09:17→20:19)
[2020-01-11] MEDS: ENOXAPARIN 40 MG/0.4 ML SQ SCH (09:17)
[2020-01-11] MEDS ORDERED: FAMOTIDINE 20 MG/2 ML VIAL IV ONE ×2 (09:19→20:31)
[2020-01-11] MEDS ORDERED: FUROSEMIDE 20 MG/ 2ML VIAL ONE (09:19)
[2020-01-11] MEDS ORDERED: POTASSIUM 25 MEQ EFFERV TAB ONE ×2 (09:19→20:31)
[2020-01-11] MEDS ORDERED: HYDROCORTISONE SUC 100 MG INJ ONE ×2 (09:19→20:31)
[2020-01-11] MEDS ORDERED: ENOXAPARIN 40 MG/0.4 ML SQ ONE (09:20)
[2020-01-11] MEDS ORDERED: CEFOXITIN/SWI 1gm 1 GM/10 ML SYR ONE (09:28)
[2020-01-11 09:53] LABS: Blood Morphology Comment NOT SEEN (NOT SEEN); Platelet Estimate DECR
[2020-01-11] MEDS ORDERED: VITAL HP 1,000 ML BOT RTH SCH (11:00)
[2020-01-11] MEDS ORDERED: THIAMINE 200 MG/2 ML INJ ONE ×2 (11:37→20:31)
[2020-01-11 13:59] LABS: C.diff Antigen/Toxin Ag neg : Tox neg (NEG : NEG)
[2020-01-11] MEDS ORDERED: CEFEPIME 1 GM/VIAL IV SCH (14:29)
--- NOTE | 2020-01-11 14:31 | P.PN ---
Subjective Date of Service: 01/11/20 Chief Complaint: Respiratory failure Patient is more alert today all over he has having some copious secretions chest x-ray looks worse probably underlying pulmonary edema patient is hypotensive on Levophed Review of Systems is unable to be obtained Physical Examination - Vital Signs Temperature: 98.4 F Blood Pressure: 91/52 Pulse: 95 Respirations: 28 Pulse Ox (%): 100 - Physical Exam General: Alert Respiratory: Crackles/rales Cardiovascular: No edema, Normal S1 S2 Assessment & Plan - Problems (Diagnosis) (1) Status epilepticus Current Visit: Yes Status: Acute Plan: No evidence of active ongoing seizures aggressive potassium replacement his potassium level is now 3.5 EEG is pending (2) Respiratory failure Current Visit: Yes Status: Acute Plan: P patient is in respiratory failure worsening chest x-ray appearance likely pulmonary edema patient is on 40% oxygen agree with Levophed Dc IV fluids patient has Pseudomonas isolated in the sputum change to cefepime 1 g now blood cultures negative will start on tube feeds sees more alert today echocardiogram is also pending Qualifiers: Chronicity: acute
[2020-01-11] MEDS: CEFEPIME/SWI 1gm 10 ML IVP SCH ×2 (14:49→20:19)
[2020-01-12] MEDS: levETIRAcetam 1,000 MG in NA CHLORIDE 0.9% 100 ML IV SCH ×2 (00:19→13:13)
[2020-01-12] MEDS: FENTANYL CITR 100 MCG/2 ML IV PRN ×3 (00:19→22:00)
[2020-01-12] MEDS ORDERED: FENTANYL CITR 100 MCG/2 ML ONE ×3 (00:26→22:10)
[2020-01-12] MEDS ORDERED: ALBUTEROL 2.5 MG/3 ML NEB SOL ONE ×4 (01:14→20:03)
[2020-01-12] MEDS: IPRATROPIUM BROM 0.5MG/2.5ML NEB SCH ×4 (01:15→19:38)
[2020-01-12] MEDS ORDERED: IPRATROPIUM BROM 0.5MG/2.5ML ONE ×4 (01:15→20:03)
[2020-01-12] MEDS: ALBUTEROL 2.5 MG/3 ML NEB SOL NEB SCH ×4 (01:15→19:38)
[2020-01-12] MEDS: LORazepam 2 MG/ML VIAL IV PRN ×4 (02:56→19:15)
[2020-01-12] MEDS ORDERED: LORazepam 2 MG/ML VIAL ONE ×4 (03:07→19:24)
[2020-01-12 05:17] LABS: Absolute Lymphocytes (CBC) 0.9 K/uL (0.7-4.9); Basophils % 0.1 % (0-1.3); Hematocrit 23.9 % (39.6-49.0); Lymphocytes % 6.3 % (15.3-44.8); MPV 9.4 fL (7.6-11.3); RBC Red Blood Cell Count 2.56 M/uL (4.33-5.43)
[2020-01-12 05:23] LABS: BUN Blood Urea Nitrogen 11 mg/dL (7-18); Bicarbonate 31 mmol/L (21-32); Glucose Level 146 mg/dL (74-106); Phosphorus 2.1 mg/dL (2.5-4.9); Potassium 3.5 mmol/L (3.5-5.1); Sodium Level 144 mmol/L (136-145)
[2020-01-12 05:34] LABS: Arterial Blood Carboxyhemoglob 1.4 % (0-1.5); Blood Gas Oxyhemoglobin 95.4 % (94-97); Blood O2 Saturation 97.5 % (92-98.5)
[2020-01-12] MEDS ORDERED: POTASSIUM PHOS IN 0.9 % NACL 15 MMOL/250 ML BAG IV ONE (08:00)
[2020-01-12] MEDS: ENOXAPARIN 40 MG/0.4 ML SQ SCH (08:27)
[2020-01-12] MEDS: POTASSIUM 25 MEQ EFFERV TAB PO SCH ×2 (08:28→19:47)
[2020-01-12] MEDS: CEFEPIME/SWI 1gm 10 ML IVP SCH ×2 (08:28→19:47)
[2020-01-12] MEDS ORDERED: ENOXAPARIN 40 MG/0.4 ML SQ ONE (08:30)
[2020-01-12] MEDS ORDERED: HYDROCORTISONE SUC 100 MG INJ ONE ×2 (08:30→19:53)
[2020-01-12] MEDS ORDERED: FAMOTIDINE 20 MG/2 ML VIAL IV ONE ×2 (08:31→19:54)
[2020-01-12] MEDS ORDERED: THIAMINE 200 MG/2 ML INJ ONE ×2 (08:32→19:57)
[2020-01-12] MEDS ORDERED: POTASSIUM 25 MEQ EFFERV TAB ONE ×2 (08:32→19:54)
--- NOTE | 2020-01-12 08:43 | RAD REPORT ---
EXAM DESCRIPTION: RAD - Chest Single View - 01/12/2020 6:44 am CLINICAL HISTORY: vented Chest pain. COMPARISON: Chest Single View dated 01/11/2020; Chest Single View dated 01/10/2020; Chest Single Vie w dated 01/09/2020; Chest Single View dated 01/08/2020 FINDINGS: Portable technique limits examination quality. Mild improvement is seen since yesterday's study in the bilateral pulmonary opacities. The heart is n ormal in size. Tip of the ET tube remains above the carl. Enteric tube descends in the stomach. IMPRESSION: Mild improvement in lung aeration is seen since comparative study.
[2020-01-12] MEDS: FAMOTIDINE 20 MG/2 ML VIAL IV SCH ×2 (09:18→19:48)
[2020-01-12] MEDS: HYDROCORTISONE SUC 100 MG INJ IV SCH ×2 (09:18→19:48)
[2020-01-12] MEDS: THIAMINE 200 MG/2 ML INJ IVP SCH ×2 (09:18→19:48)
[2020-01-12] MEDS: HALOPERIDOL LACT 5 MG/ML INJ IV PRN (14:20)
[2020-01-12] MEDS ORDERED: HALOPERIDOL LACT 5 MG/ML INJ ONE (14:32)
--- NOTE | 2020-01-12 15:49 | P.PN ---
Subjective Date of Service: 01/11/20 patient remains tachypneic on the ventilator. His chest x-ray shows bilateral infiltrates. Patient's sputum culture pending. Continue with broad-spectrum antibiotic coverage. Patient did have some secretions in the endotracheal tube and there was concern for aspiration pneumonia. Patient is waking up and responding at this time. Continue to speak with patient's and keep her updated. He has been intubated for the last 3 days and if he continues to have difficulty with weaning trials that is possible that he may need to go to an LTAC facility. Review of Systems 10-point ROS is otherwise unremarkable Physical Examination - Vital Signs Temperature: 98.8 F Blood Pressure: 103/58 Pulse: 97 Respirations: 32 Pulse Ox (%): 94 - Physical Exam General: Other ( Intubated and sedated. Patient moves all his extremities. He is starting to open his eyes as well.) HEENT: PERRLA Respiratory: Diminished, Rhonchi/gurgles Cardiovascular: Regular rate/rhythm, Normal S1 S2, No murmurs Gastrointestinal: Normal bowel sounds, Soft and benign, Non-distended, No tenderness Musculoskeletal: No clubbing, No swelling, No tenderness Integumentary: No rashes Neurological: Sensation intact, Cranial nerves 3-12 intact - Studies Medications List Reviewed: Yes Assessment & Plan - Problems (Diagnosis) (1) Status epilepticus Current Visit: Yes Status: Acute (2) Respiratory failure Current Visit: Yes Status: Acute (3) History of alcohol abuse Current Visit: Yes Status: Acute (4) History of cocaine abuse Current Visit: Yes Status: Acute (5) History of hepatitis C Current Visit: Yes Status: Acute (6) History of stroke Current Visit: Yes Status: Acute (7) Pseudomonas pneumonia Current Visit: Yes Status: Acute Qualifiers: Laterality: bilateral - Plan Plan: Continue with plan of care as mentioned below 1. Continue with antiepileptics 2. Continue with vent support along with antibiotic therapy. Patient was Pseudomonas pneumoniae. Continue with antibiotic therapy with cefepime 3. patient was weaned off of Levophed. Continue with tube feedings at this time 4. patient was severely hypokalemic on arrival. Most likely because he was not getting supplementation for his Lasix. Patient also had poor nutrition for the last few months. He has also a former drinker but he had quit and has only drank a couple of times over the last month. Unlikely that he has gone into DTs. 5. Repeat EEG is still pending. however, neurologically patient is still responding more appropriately. 6. Pulmonary consultation and neurology consultation appreciated 7. Repeat CT scan if no neurologic improvement 8. GI and DVT prophylaxis Discharge Plan: LTAC Plan to discharge in: Greater than 2 days - Advance Directives Does patient have a Living Will: No Does patient have a Durable POA for Healthcare: No - Code Status/Comfort Care Code Status: Full Code Critical Care: Yes Time Spent Managing PTS Care (In Minutes): 35
--- NOTE | 2020-01-12 15:49 | P.PN ---
Subjective Date of Service: 01/12/20 Patient is still breathing over the ventilator. Respiratory rate is in the 20s. Attempted SIMV mode and he became very tachypneic. Chest x-ray shows some improvement of the pulmonary infiltrates. Will continue to diurese aggressively. Replace electrolytes as needed. Urologically, he is following commands at this time. Hopefully, we can get him extubated over the next few days. Appreciate Pulmonary support Review of Systems is unable to be obtained (Patient is sedated and intubated) Physical Examination - Vital Signs Temperature: 98.8 F Blood Pressure: 103/58 Pulse: 97 Respirations: 32 Pulse Ox (%): 94 - Physical Exam General: Alert, In no apparent distress, Oriented x3 Respiratory: Diminished, Crackles/rales Cardiovascular: Regular rate/rhythm, Normal S1 S2, Systolic murmur Gastrointestinal: Normal bowel sounds, Soft and benign, Non-distended, No tenderness Musculoskeletal: No clubbing, Swelling Neurological: Sensation intact, Cranial nerves 3-12 intact - Studies Medications List Reviewed: Yes Assessment & Plan - Problems (Diagnosis) (1) Status epilepticus Current Visit: Yes Status: Acute (2) Respiratory failure Current Visit: Yes Status: Acute (3) History of alcohol abuse Current Visit: Yes Status: Acute (4) History of cocaine abuse Current Visit: Yes Status: Acute (5) History of hepatitis C Current Visit: Yes Status: Acute (6) History of stroke Current Visit: Yes Status: Acute (7) Anemia Current Visit: Yes Status: Acute (8) Hypocalcemia Current Visit: Yes Status: Acute (9) Pseudomonas pneumonia Current Visit: Yes Status: Acute Qualifiers: Laterality: bilateral - Plan Plan: Continue with plan of care as mentioned below 1. Continue with antiepileptics 2. Continue with vent support; will re-attempt weaning trial tomorrow 3. weaned off the vasopressors 4. Supplement electrolytes as needed 5. Thyroid studies and cortisol studies are stable 6. Initial EEG with epileptiform discharges. Repeat EEG results are pending. 7. Pulmonary consultation and neurology consultation appreciated. 8. Neurologically, patient is following commands. 9. Continue with IV antibiotic therapy for Pseudomonas in sputum 10. Repeat chest x-ray in 48 hr 11. GI and DVT prophylaxis Discharge Plan: [facility] Care Plan to discharge in: Greater than 2 days - Advance Directives Does patient have a Living Will: No Does patient have a Durable POA for Healthcare: No - Code Status/Comfort Care Code Status: Full Code Critical Care: Yes Time Spent Managing PTS Care (In Minutes): 35
[2020-01-12] MEDS ORDERED: ALBUMIN HUMAN 25% 100 ML IV ONE (17:00)
[2020-01-12] MEDS ORDERED: FUROSEMIDE 20 MG/ 2ML VIAL IV ONE (17:00)
[2020-01-12] MEDS ORDERED: FUROSEMIDE 20 MG/ 2ML VIAL ONE (17:10)
[2020-01-12] MEDS ORDERED: FOLIC ACID 1 MG TABLET ONE (17:13)
[2020-01-12] MEDS ORDERED: ALBUMIN HUMAN 25% 50 ML IV ONE (17:13)
[2020-01-12] MEDS: FOLIC ACID 1 MG in NA CHLORIDE 0.9% 50 ML IV SCH (17:17)
[2020-01-12] MEDS: MIDAZOLAM HCL 2 MG/2 ML INJ IV PRN (21:00)
[2020-01-12] MEDS ORDERED: MIDAZOLAM HCL 2 MG/2 ML INJ ONE (21:03)
[2020-01-13] MEDS: levETIRAcetam 1,000 MG in NA CHLORIDE 0.9% 100 ML IV SCH ×2 (00:44→13:30)
[2020-01-13] MEDS: IPRATROPIUM BROM 0.5MG/2.5ML NEB SCH ×4 (01:30→20:10)
[2020-01-13] MEDS: ALBUTEROL 2.5 MG/3 ML NEB SOL NEB SCH ×4 (01:30→20:10)
[2020-01-13] MEDS ORDERED: IPRATROPIUM BROM 0.5MG/2.5ML ONE ×4 (01:34→20:33)
[2020-01-13] MEDS ORDERED: ALBUTEROL 2.5 MG/3 ML NEB SOL ONE ×4 (01:34→20:33)
[2020-01-13] MEDS: LORazepam 2 MG/ML VIAL IV PRN ×5 (03:01→22:30)
[2020-01-13] MEDS: FENTANYL CITR 100 MCG/2 ML IV PRN ×4 (03:02→22:29)
[2020-01-13] MEDS ORDERED: LORazepam 2 MG/ML VIAL ONE ×5 (03:12→22:37)
[2020-01-13] MEDS ORDERED: FENTANYL CITR 100 MCG/2 ML ONE ×4 (03:13→22:39)
[2020-01-13 05:45] LABS: Absolute Lymphocytes (CBC) 1.1 K/uL (0.7-4.9); Basophils % 0.3 % (0-1.3); Hematocrit 23.2 % (39.6-49.0); Lymphocytes % 8.9 % (15.3-44.8); MPV 9.5 fL (7.6-11.3); RBC Red Blood Cell Count 2.47 M/uL (4.33-5.43)
[2020-01-13 06:02] LABS: ALT/SGPT 12 U/L (12-78); AST/SGOT 27 U/L (15-37); Alkaline Phosphatase 63 U/L (45-117); BUN Blood Urea Nitrogen 17 mg/dL (7-18); Bicarbonate 32 mmol/L (21-32); Bilirubin Total 0.9 mg/dL (0.2-1.0); Glucose Level 152 mg/dL (74-106); Magnesium 2.1 mg/dL (1.8-2.4); NT PRO-BNP 3658 pg/mL (<125); Phosphorus 1.7 mg/dL (2.5-4.9); Potassium 3.6 mmol/L (3.5-5.1); Protein, Total 6.1 g/dL (6.4-8.2); Sodium Level 145 mmol/L (136-145)
[2020-01-13] MEDS ORDERED: SODIUM CHLORIDE 0.9% 10ML INJ IV PRN (07:19)
[2020-01-13] MEDS ORDERED: POTASSIUM PHOS 30 MM in NA CHLORIDE 0.9% 500 ML IV ONE (07:20)
[2020-01-13] MEDS ORDERED: CALCIUM GLUC 10% INJ 4.65 MEQ in NA CHLORIDE 0.9% 100 ML IV ONE (07:21)
[2020-01-13] MEDS ORDERED: POTASSIUM PHOS IN 0.9 % NACL 15 MMOL/250 ML BAG IV ONE (07:28)
--- NOTE | 2020-01-13 07:35 | P.PN ---
Subjective Date of Service: 01/13/20 Spoke with patient's son and yesterday. They are pleased that he is waking up and following commands. He did open his eyes when they came the see him. They are concerned about his breathing but he is slowly improving as his FiO2 is come down to 50%. Hopefully we can continue to wean him down over the next few days. He may need L tach placement if he has difficulty coming off the ventilator. Otherwise, once he has weaned off he will probably need inpatient or retirement facility placement. Neurologically he is much improved. His respiratory status secondary to Pseudomonas pneumonia versus ARDS versus aspiration is slowly improving. Review of Systems is unable to be obtained Physical Examination - Vital Signs Temperature: 98.8 F Blood Pressure: 103/58 Pulse: 97 Respirations: 32 Pulse Ox (%): 94 - Physical Exam General: Other ( Intubated and sedated) Respiratory: Rhonchi/gurgles Cardiovascular: Regular rate/rhythm, Normal S1 S2 Gastrointestinal: Soft and benign, Non-distended, No tenderness, No rebound, No guarding Musculoskeletal: No clubbing, No swelling Neurological: Other ( moves all his extremities in response to sensation and voice at this time.) - Studies Medications List Reviewed: Yes Assessment & Plan - Problems (Diagnosis) (1) Status epilepticus Current Visit: Yes Status: Acute (2) Respiratory failure Current Visit: Yes Status: Acute (3) History of alcohol abuse Current Visit: Yes Status: Acute (4) History of cocaine abuse Current Visit: Yes Status: Acute (5) History of hepatitis C Current Visit: Yes Status: Acute (6) History of stroke Current Visit: Yes Status: Acute (7) Anemia Current Visit: Yes Status: Acute (8) Hypocalcemia Current Visit: Yes Status: Acute (9) Pseudomonas pneumonia Current Visit: Yes Status: Acute Qualifiers: Laterality: bilateral - Plan Plan: Continue with plan of care as mentioned below 1. Continue with antiepileptics 2. Continue with vent support; Gradual reduction of the FiO2 and PEEP. Appreciate Pulmonary consultation 3. remains off vasopressor support 4. Supplement electrolytes as needed 5. Thyroid studies and cortisol studies are stable 6. Initial EEG with epileptiform discharges. Repeat EEG results are pending. 7. Pulmonary consultation and neurology consultation appreciated. 8. Neurologically, patient is following commands. 9. Continue with IV antibiotic therapy for Pseudomonas in sputum 10. chest x-ray with improvements of infiltrates. Repeat in 48 hours 11. GI and DVT prophylaxis Discharge Plan: LTAC Plan to discharge in: Greater than 2 days - Advance Directives Does patient have a Living Will: No Does patient have a Durable POA for Healthcare: No - Code Status/Comfort Care Code Status: Full Code Critical Care: Yes Time Spent Managing PTS Care (In Minutes): 35
[2020-01-13] MEDS ORDERED: FUROSEMIDE 20 MG/ 2ML VIAL IV SCH (08:00)
[2020-01-13] MEDS: THIAMINE 200 MG/2 ML INJ IVP SCH ×2 (08:05→20:09)
[2020-01-13] MEDS: PANTOPRAZOLE 40 MG INJ IVP SCH ×2 (08:05→20:08)
[2020-01-13] MEDS: HALOPERIDOL LACT 5 MG/ML INJ IV PRN ×2 (08:05→14:19)
[2020-01-13] MEDS: ENOXAPARIN 40 MG/0.4 ML SQ SCH (08:06)
[2020-01-13] MEDS: POTASSIUM 25 MEQ EFFERV TAB PO SCH ×2 (08:06→20:06)
[2020-01-13] MEDS: FOLIC ACID 1 MG in NA CHLORIDE 0.9% 50 ML IV SCH (08:10)
[2020-01-13] MEDS ORDERED: HALOPERIDOL LACT 5 MG/ML INJ ONE ×2 (08:10→14:23)
[2020-01-13] MEDS ORDERED: PANTOPRAZOLE 40 MG INJ ONE ×2 (08:10→20:11)
[2020-01-13] MEDS ORDERED: POTASSIUM 25 MEQ EFFERV TAB ONE ×2 (08:10→20:12)
[2020-01-13] MEDS ORDERED: THIAMINE 200 MG/2 ML INJ ONE ×2 (08:10→20:11)
--- NOTE | 2020-01-13 08:10 | RAD REPORT ---
EXAM DESCRIPTION: [place] Single View01/13/2020 7:39 am CLINICAL HISTORY: Shortness of breath COMPARISON: January 11 FINDINGS: Extensive bilateral pulmonary opacities are unchanged Endotracheal and nasogastric tubes remain in place. The heart is normal size IMPRESSION: No significant change in extensive bilateral pulmonary opacities which may represent pne umonia or pulmonary edema
[2020-01-13] MEDS ORDERED: CALCIUM GLUCONATE 1 GM IVPB 1 GM/50 ML BAG IV ONE (08:11)
[2020-01-13] MEDS ORDERED: ENOXAPARIN 40 MG/0.4 ML SQ ONE (08:11)
[2020-01-13] MEDS: HYDROCORTISONE SUC 100 MG INJ IV SCH ×2 (08:13→20:08)
[2020-01-13] MEDS ORDERED: HYDROCORTISONE SUC 100 MG INJ ONE ×2 (08:26→20:11)
[2020-01-13] MEDS: CEFEPIME/SWI 1gm 10 ML IVP SCH ×2 (08:42→20:07)
--- NOTE | 2020-01-13 10:21 | P.PN ---
Subjective Date of Service: 01/13/20 Chief Complaint: Respiratory failure Pt is not doing well. ARDS on CXRY. CXRY bialteral white out. Decline in HGB.NE of GI bleed. Slight decline in HGB. NE of hemoptysis. Hold blood transfusion unitl HGB less than 7 . Increase PEEP to 8. Titrate O2 sat of 95%. Add doxycycline at risk for MRSA. Requiring prn sedation. Repeat EEG not read ,Pt has diarhea on tube feedss Physical Examination - Vital Signs Temperature: 98.8 F Blood Pressure: 103/58 Pulse: 97 Respirations: 32 Pulse Ox (%): 94 - Studies Medications List Reviewed: Yes Assessment & Plan - Problems (Diagnosis) (1) Status epilepticus Current Visit: Yes Status: Acute Plan: CW KCL replacement NE of seizures (2) Respiratory failure Current Visit: Yes Status: Acute Plan: P patient is in respiratory failure worsening chest x-ray appearance likely pulmonary edema patient is on 40% oxygen agree with Levophed Dc IV fluids patient has Pseudomonas isolated in the sputum change to cefepime 1 g now blood cultures negative will start on tube feeds sees more alert today echocardiogram is also pending. Low dos espironolactone. Pseudomonas isolated. Repeat sputum cultures, HOlf Blood transfuison for now until HGB less than 7 Qualifiers: Chronicity: acute
[2020-01-13] MEDS: SPIRONOLACTONE 25 MG TABLET PO SCH ×2 (10:24→20:06)
[2020-01-13] MEDS: DOXYCYCLINE 100 MG in NA CHLORIDE 0.9% 100 ML IVPB SCH ×2 (11:50→20:08)
[2020-01-13] MEDS: MIDAZOLAM HCL 2 MG/2 ML INJ IV PRN ×2 (17:23→23:54)
[2020-01-13] MEDS ORDERED: MIDAZOLAM HCL 2 MG/2 ML INJ ONE (17:35)
[2020-01-14] MEDS ORDERED: MIDAZOLAM HCL 2 MG/2 ML INJ ONE ×2 (00:03→16:06)
[2020-01-14] MEDS: levETIRAcetam 1,000 MG in NA CHLORIDE 0.9% 100 ML IV SCH ×2 (00:30→13:11)
[2020-01-14] MEDS: HALOPERIDOL LACT 5 MG/ML INJ IV PRN (00:53)
[2020-01-14] MEDS ORDERED: HALOPERIDOL LACT 5 MG/ML INJ ONE (01:03)
[2020-01-14] MEDS: ALBUTEROL 2.5 MG/3 ML NEB SOL NEB SCH ×4 (01:15→19:45)
[2020-01-14] MEDS: IPRATROPIUM BROM 0.5MG/2.5ML NEB SCH ×4 (01:15→19:45)
[2020-01-14] MEDS ORDERED: ALBUTEROL 2.5 MG/3 ML NEB SOL ONE ×4 (01:24→19:53)
[2020-01-14] MEDS ORDERED: IPRATROPIUM BROM 0.5MG/2.5ML ONE ×4 (01:24→19:52)
[2020-01-14] MEDS: LORazepam 2 MG/ML VIAL IV PRN ×4 (02:13→23:00)
[2020-01-14] MEDS ORDERED: LORazepam 2 MG/ML VIAL ONE ×4 (02:15→23:12)
[2020-01-14] MEDS: FENTANYL CITR 100 MCG/2 ML IV PRN ×3 (03:19→20:52)
[2020-01-14] MEDS ORDERED: FENTANYL CITR 100 MCG/2 ML ONE ×3 (03:28→20:58)
[2020-01-14 05:48] LABS: Absolute Lymphocytes (CBC) 1.2 K/uL (0.7-4.9); Basophils % 0.3 % (0-1.3); Hematocrit 21.9 % (39.6-49.0); Lymphocytes % 10.4 % (15.3-44.8); MPV 9.7 fL (7.6-11.3); RBC Red Blood Cell Count 2.31 M/uL (4.33-5.43)
[2020-01-14 06:19] LABS: ALT/SGPT 21 U/L (12-78); Albumin 1.6 g/dL (3.4-5.0); Alkaline Phosphatase 95 U/L (45-117); BUN Blood Urea Nitrogen 24 mg/dL (7-18); Bicarbonate 33 mmol/L (21-32); Bilirubin Total 0.6 mg/dL (0.2-1.0); Glucose Level 135 mg/dL (74-106); NT PRO-BNP 3990 pg/mL (<125); Phosphorus 2.4 mg/dL (2.5-4.9); Protein, Total 5.6 g/dL (6.4-8.2); Sodium Level 148 mmol/L (136-145)
[2020-01-14 06:23] LABS: AST/SGOT 62 U/L (15-37); Magnesium 1.9 mg/dL (1.8-2.4); Potassium 4.6 mmol/L (3.5-5.1)
[2020-01-14] MEDS: FOLIC ACID 1 MG in NA CHLORIDE 0.9% 50 ML IV SCH (08:41)
[2020-01-14] MEDS: PANTOPRAZOLE 40 MG INJ IVP SCH ×2 (08:42→20:50)
[2020-01-14] MEDS: POTASSIUM 25 MEQ EFFERV TAB PO SCH (08:42)
[2020-01-14] MEDS: ENOXAPARIN 40 MG/0.4 ML SQ SCH (08:42)
[2020-01-14] MEDS: DOXYCYCLINE 100 MG in NA CHLORIDE 0.9% 100 ML IVPB SCH ×2 (08:43→20:48)
[2020-01-14] MEDS ORDERED: POTASSIUM 25 MEQ EFFERV TAB ONE (08:48)
[2020-01-14] MEDS ORDERED: PANTOPRAZOLE 40 MG INJ ONE ×2 (08:48→20:58)
[2020-01-14] MEDS ORDERED: ENOXAPARIN 40 MG/0.4 ML SQ ONE (08:48)
[2020-01-14] MEDS: SPIRONOLACTONE 25 MG TABLET PO SCH ×2 (09:04→20:48)
[2020-01-14] MEDS: CEFEPIME/SWI 1gm 10 ML IVP SCH ×2 (09:05→20:49)
[2020-01-14] MEDS: ACETAMINOPHEN 500 MG TAB PO PRN (09:07)
[2020-01-14] MEDS: HYDROCORTISONE SUC 100 MG INJ IV SCH (09:07)
[2020-01-14] MEDS: THIAMINE 200 MG/2 ML INJ IVP SCH ×2 (09:08→20:49)
[2020-01-14] MEDS ORDERED: HYDROCORTISONE SUC 100 MG INJ ONE (09:19)
[2020-01-14] MEDS ORDERED: ACETAMINOPHEN 500 MG TAB ONE (09:19)
[2020-01-14] MEDS ORDERED: THIAMINE 200 MG/2 ML INJ ONE ×2 (09:20→20:57)
--- NOTE | 2020-01-14 10:48 | RAD REPORT ---
EXAM DESCRIPTION: RAD - Chest Single View - 01/14/2020 6:54 am CLINICAL HISTORY: pneumonia Chest pain. COMPARISON: Chest Single View dated 01/13/2020; Chest Single View dated 01/12/2020; Chest Single Vie w dated 01/11/2020; Chest Single View dated 01/10/2020 FINDINGS: Portable technique limits examination quality. Severe bilateral pulmonary opacities are present likely representing pulmonary edema, pneumonia or AR DS. Heart is upper limit normal size. Tip of the endotracheal tube is above the carl. Enteric tube descends into stomach.
[2020-01-14] MEDS ORDERED: FUROSEMIDE 20 MG/ 2ML VIAL ONE (11:12)
--- NOTE | 2020-01-14 11:19 | P.PN ---
Subjective Date of Service: 01/14/20 Chief Complaint: Respiratory failure Patient is improving he is more alert responsive and cooperative still on mechanical ventilation chest x-ray still shows bilateral haziness oxygen requirements have been declining still has secretions declining patient still has diarrhea electrolytes corrected mildly hypocalcemic albumin low Review of Systems is unable to be obtained Physical Examination - Vital Signs Temperature: 99.6 F Blood Pressure: 108/60 Pulse: 97 Respirations: 24 Pulse Ox (%): 95 - Physical Exam General: Alert, Cooperative Respiratory: Crackles/rales (Crackles bilaterally) Cardiovascular: Normal S1 S2, Edema (Mild edema) - Studies Medications List Reviewed: Yes Assessment & Plan - Problems (Diagnosis) (1) Status epilepticus Current Visit: Yes Status: Acute Plan: Seizures controlled (2) Respiratory failure Current Visit: Yes Status: Acute Plan: Patient has ARDS [place] Pseudomonas pneumonia clinically improving chest x-ray still shows bilateral haziness mild hypernatremia white count is declining slight decline in his hemoglobin border some iron studies possible transfusion if is less than 7 potassium corrected titrate sat to 90% do ABGs Dc hydrocortisone no evidence of GI or pulmonary hemorrhage Qualifiers: Chronicity: acute
[2020-01-14 12:35] LABS: Ferritin 674.9 ng/mL (26-388)
[2020-01-14 13:35] LABS: Arterial Blood Carboxyhemoglob 1.8 % (0-1.5); Blood Gas Oxyhemoglobin 87.1 % (94-97); Blood O2 Saturation 89.1 % (92-98.5)
[2020-01-14] MEDS: MIDAZOLAM HCL 2 MG/2 ML INJ IV PRN (16:57)
[2020-01-15] MEDS: MIDAZOLAM HCL 2 MG/2 ML INJ IV PRN ×4 (00:09→21:25)
[2020-01-15] MEDS ORDERED: MIDAZOLAM HCL 2 MG/2 ML INJ ONE ×4 (00:21→21:37)
[2020-01-15] MEDS: levETIRAcetam 1,000 MG in NA CHLORIDE 0.9% 100 ML IV SCH ×2 (00:53→13:47)
[2020-01-15] MEDS: IPRATROPIUM BROM 0.5MG/2.5ML NEB SCH ×4 (01:20→19:32)
[2020-01-15] MEDS: ALBUTEROL 2.5 MG/3 ML NEB SOL NEB SCH ×4 (01:20→19:32)
[2020-01-15] MEDS ORDERED: FENTANYL CITR 100 MCG/2 ML ONE ×3 (01:28→23:53)
[2020-01-15] MEDS ORDERED: IPRATROPIUM BROM 0.5MG/2.5ML ONE ×4 (01:30→19:43)
[2020-01-15] MEDS ORDERED: ALBUTEROL 2.5 MG/3 ML NEB SOL ONE ×4 (01:30→19:43)
[2020-01-15] MEDS: FENTANYL CITR 100 MCG/2 ML IV PRN ×3 (01:40→23:46)
[2020-01-15] MEDS: LORazepam 2 MG/ML VIAL IV PRN ×3 (04:19→19:45)
[2020-01-15] MEDS ORDERED: LORazepam 2 MG/ML VIAL ONE ×4 (04:27→23:52)
[2020-01-15 05:15] LABS: Absolute Lymphocytes (CBC) 1.8 K/uL (0.7-4.9); Hematocrit 22.8 % (39.6-49.0); Lymphocytes % 14.3 % (15.3-44.8); MPV 9.1 fL (7.6-11.3); RBC Red Blood Cell Count 2.42 M/uL (4.33-5.43)
[2020-01-15 05:32] LABS: BUN Blood Urea Nitrogen 25 mg/dL (7-18); Bicarbonate 33 mmol/L (21-32); Glucose Level 103 mg/dL (74-106); Potassium 3.5 mmol/L (3.5-5.1); Sodium Level 150 mmol/L (136-145)
[2020-01-15 06:12] LABS: Blood Morphology Comment NOT SEEN (NOT SEEN); Platelet Estimate DECR
--- NOTE | 2020-01-15 06:36 | P.PN ---
Subjective Date of Service: 01/14/20 Patient has continued to do well with no new complaints. His respiratory status is still poor and he is slowly weaning off the ventilator. I was able to speak to patient's son and today. he continues to do well neurologically. Remains on 50% FiO2. On SIMV he becomes tachypneic so it has been difficult to get him weaned down any further. Review of Systems is unable to be obtained Physical Examination - Vital Signs Temperature: 98.8 F Blood Pressure: 103/58 Pulse: 97 Respirations: 32 Pulse Ox (%): 94 - Physical Exam General: Other ( remains intubated and is sedated but follows all commands.) HEENT: Atraumatic, PERRLA, EOMI Neck: Supple, JVD not distended Respiratory: Diminished, Rhonchi/gurgles Cardiovascular: Regular rate/rhythm, Normal S1 S2, No murmurs Gastrointestinal: Normal bowel sounds, Soft and benign, Non-distended, No tenderness Musculoskeletal: No clubbing, No swelling, No tenderness Neurological: Sensation intact, Cranial nerves 3-12 intact - Studies Medications List Reviewed: Yes Assessment & Plan - Problems (Diagnosis) (1) Status epilepticus Current Visit: Yes Status: Acute (2) Respiratory failure Current Visit: Yes Status: Acute (3) History of alcohol abuse Current Visit: Yes Status: Acute (4) History of cocaine abuse Current Visit: Yes Status: Acute (5) History of hepatitis C Current Visit: Yes Status: Acute (6) History of stroke Current Visit: Yes Status: Acute (7) Anemia Current Visit: Yes Status: Acute (8) Hypocalcemia Current Visit: Yes Status: Acute (9) Pseudomonas pneumonia Current Visit: Yes Status: Acute Qualifiers: Laterality: bilateral - Plan Plan: Continue with plan of care as mentioned below 1. Continue with antiepileptics 2. Continue with vent support; Gradual reduction of the FiO2 and PEEP. Appreciate Pulmonary consultation 3. remains off vasopressor support 4. Supplement electrolytes as needed; Hypernatremic so may increase free water and feedings 5. Thyroid studies and cortisol studies are stable 6. Initial EEG with epileptiform discharges. Repeat EEG results are pending. 7. echocardiogram was not in the chart. Will try to get the report placed in the chart to make sure patient does not need to be diuresed as BNP is elevated 8. Neurologically, patient is following commands. 9. Continue with IV antibiotic therapy for Pseudomonas in sputum 10. chest x-ray with improvements of infiltrates. Repeat in AM 11. GI and DVT prophylaxis Discharge Plan: LTAC Plan to discharge in: Greater than 2 days - Advance Directives Does patient have a Living Will: No Does patient have a Durable POA for Healthcare: No - Code Status/Comfort Care Code Status: Full Code Critical Care: Yes Time Spent Managing PTS Care (In Minutes): 35
[2020-01-15] MEDS: D5W 1,000 ML IV SCH (06:47)
[2020-01-15] MEDS ORDERED: D5W 1,000 ML IV ONE (06:59)
[2020-01-15] MEDS ORDERED: FUROSEMIDE 20 MG/ 2ML VIAL IV SCH (09:00)
--- NOTE | 2020-01-15 09:25 | P.PN ---
Subjective Date of Service: 01/15/20 Primary Care Provider: unknown Chief Complaint: Respiratory failure Subjective: Other (Patient remains on ventilator.) Physical Examination - Vital Signs Temperature: 98.8 F Blood Pressure: 103/58 Pulse: 97 Respirations: 32 Pulse Ox (%): 94 - Physical Exam General: Other (Patient is alert but slightly sedated. Patient on ventilator.) Neck: Supple Respiratory: Clear to auscultation bilaterally Cardiovascular: Normal pulses, Regular rate/rhythm Gastrointestinal: No masses, No rebound, No guarding Integumentary: No erythema, No warmth, No cyanosis Neurological: Other (Patient intubated) - Studies Medications List Reviewed: Yes Assessment & Plan Discharge Plan: LTAC Plan to discharge in: 48 Hours Physician Review Additional Text: Impression: Status epilepticus Acute respiratory failure likely now with acute respiratory distress syndrome with Pseudomonas aeruginosa pneumonia Acute on chronic anemia likely related to above Hypernatremia Hypocalcemia History of alcohol abuse/cocaine abuse History of hepatitis-C Hypertension Hyperlipidemia Plan: Status epilepticus: Seizures appears stable at this time. Patient remains on IV Keppra. Case discussed with Neurology. Continue with medication. Acute respiratory failure likely now with acute respiratory distress syndrome with Pseudomonas aeruginosa pneumonia: Patient remains intubated. Patient currently on AC/50% Fi02/peep of 8. Pulmonology recommends that the patient be transferred to long-term acute care facility for further care and management, especially as the patient will likely be weaned off slowly. Continue with pulmonology recommendations. Patient on IV antibiotic therapy. Will adjust IV antibiotic therapy per culture results. Will need to retest for COVID as the patient has been here more than 7 days. Will discuss with family concerning plan of care. Acute on chronic anemia likely related to above: Hemoglobin appear stable. May need to transfusion if hemoglobin below 7.0. Hypernatremia: Continue D5W. Will monitor and adjust appropriately. Hypocalcemia: Continue monitor closely. History of alcohol abuse/cocaine abuse: Patient was negative upon admission. History of hepatitis-C: Will verify with family if this is not been treated in the past. Hypertension: Hold medication. Hyperlipidemia: Hold medication. Time Spent Managing Pts Care (In Minutes): 55
[2020-01-15] MEDS: DOXYCYCLINE 100 MG in NA CHLORIDE 0.9% 100 ML IVPB SCH ×2 (10:14→21:21)
[2020-01-15] MEDS: FOLIC ACID 1 MG in NA CHLORIDE 0.9% 50 ML IV SCH (10:14)
[2020-01-15] MEDS: CEFEPIME/SWI 1gm 10 ML IVP SCH ×2 (10:14→21:20)
[2020-01-15] MEDS: POTASSIUM 25 MEQ EFFERV TAB PO SCH (10:23)
[2020-01-15] MEDS: PANTOPRAZOLE 40 MG INJ IVP SCH ×2 (10:23→21:20)
[2020-01-15] MEDS: ENOXAPARIN 40 MG/0.4 ML SQ SCH (10:23)
[2020-01-15] MEDS: THIAMINE 200 MG/2 ML INJ IVP SCH ×2 (10:23→21:25)
[2020-01-15] MEDS ORDERED: THIAMINE 200 MG/2 ML INJ ONE ×2 (10:31→21:37)
[2020-01-15] MEDS ORDERED: PANTOPRAZOLE 40 MG INJ ONE ×2 (10:31→21:26)
[2020-01-15] MEDS ORDERED: POTASSIUM 25 MEQ EFFERV TAB ONE (10:32)
[2020-01-15] MEDS ORDERED: NS 0.9% VIAL 10 ML ONE (10:32)
[2020-01-15] MEDS ORDERED: ENOXAPARIN 40 MG/0.4 ML SQ ONE (10:32)
[2020-01-15] MEDS: SPIRONOLACTONE 25 MG TABLET PO SCH ×2 (11:04→21:17)
[2020-01-15] MEDS: NOREPINEPHRINE 4 MG in D5W 250 ML IV PRN (11:18)
--- NOTE | 2020-01-15 11:48 | RAD REPORT ---
EXAM DESCRIPTION: XR Chest 1 View CLINICAL HISTORY: PICC placement TECHNIQUE: Single frontal view of the chest is submitted. COMPARISON: None available for comparison FINDINGS: Heart: The cardiothoracic silhouette is mildly enlarged. Lungs: Moderate central pulmonary vascular and interstitial prominence, bilateral perihilar and basil ar opacities. Mediastinum: Thoracic aortic atherosclerosis. Pleura: Small bilateral pleural effusions. Bones: Multilevel spondylosis. No acute fracture. Upper abdomen: Unremarkable Other: The distal visualized portion of the right upper extremity PICC projects over the proximal to mid superior vena cava. Endotracheal tube tip projects 2.6 cm proximal to the carl. Nasogastric tub e tip collimated off the [id number]. The distal visualized portion projects over the left upper qu adrant in the expected region of the stomach. IMPRESSION: 1. The distal visualized portion of the right upper extremity PICC projects over the p roximal to mid superior vena cava. 2. Findings which may be related to pulmonary congestion including small bilateral pleural effusion s. Superimposed infection not excluded. Electronically signed by: Anthony Ellis MD 01/15/2020 12:24 AM TRACTOR OPERATOR HELPER Due to temporary technical issues with the PACS/Fluency reporting system, reports are being signed by the in house radiologist without review as a courtesy to ensure prompt reporting. The interpreting r adiologist is fully responsible for the content of the report.
[2020-01-15] MEDS: ACETAMINOPHEN 500 MG TAB PO PRN ×2 (12:15→23:45)
[2020-01-15] MEDS ORDERED: ACETAMINOPHEN 500 MG TAB ONE ×2 (12:28→23:58)
[2020-01-15] MEDS ORDERED: HALOPERIDOL LACT 5 MG/ML INJ ONE ×2 (19:40→23:52)
[2020-01-15] MEDS: HALOPERIDOL LACT 5 MG/ML INJ IV PRN ×2 (19:41→23:46)
[2020-01-15] MEDS ORDERED: KCL 20 MEQ/100 mL IVPB 20 MEQ/100 ML BAG IV SCH (21:00)
[2020-01-15] MEDS ORDERED: KCL 20 MEQ/100 mL IVPB 20 MEQ/100 ML BAG IV ONE (21:32)
[2020-01-16] MEDS: ALBUTEROL 2.5 MG/3 ML NEB SOL NEB SCH ×4 (01:15→19:35)
[2020-01-16] MEDS: IPRATROPIUM BROM 0.5MG/2.5ML NEB SCH ×4 (01:15→19:35)
[2020-01-16] MEDS ORDERED: IPRATROPIUM BROM 0.5MG/2.5ML ONE ×3 (01:17→19:45)
[2020-01-16] MEDS ORDERED: ALBUTEROL 2.5 MG/3 ML NEB SOL ONE ×3 (01:17→19:44)
[2020-01-16] MEDS: levETIRAcetam 1,000 MG in NA CHLORIDE 0.9% 100 ML IV SCH ×2 (01:38→13:02)
[2020-01-16] MEDS: D5W 1,000 ML IV SCH (03:54)
[2020-01-16] MEDS ORDERED: D5W 1,000 ML IV ONE (04:07)
[2020-01-16 06:00] LABS: Absolute Lymphocytes (CBC) 1.4 K/uL (0.7-4.9); Basophils % 0.2 % (0-1.3); Hematocrit 21.3 % (39.6-49.0); Lymphocytes % 12.2 % (15.3-44.8); MPV 9.3 fL (7.6-11.3); RBC Red Blood Cell Count 2.24 M/uL (4.33-5.43)
[2020-01-16 06:03] LABS: ALT/SGPT 37 U/L (12-78); AST/SGOT 84 U/L (15-37); Albumin 1.4 g/dL (3.4-5.0); Alkaline Phosphatase 123 U/L (45-117); BUN Blood Urea Nitrogen 21 mg/dL (7-18); Bicarbonate 31 mmol/L (21-32); Bilirubin Total 0.9 mg/dL (0.2-1.0); Glucose Level 114 mg/dL (74-106); Magnesium 1.8 mg/dL (1.8-2.4); Phosphorus 3.1 mg/dL (2.5-4.9); Potassium 3.8 mmol/L (3.5-5.1); Protein, Total 5.7 g/dL (6.4-8.2); Sodium Level 150 mmol/L (136-145)
[2020-01-16] MEDS: LORazepam 2 MG/ML VIAL IV PRN ×4 (06:08→20:10)
[2020-01-16] MEDS ORDERED: POTASSIUM 25 MEQ EFFERV TAB PO ONE (06:24)
[2020-01-16] MEDS ORDERED: MAGNESIUM SULFATE 1 gm IVPB 1 GM/100 ML BAG IV ONE ×2 (06:24→06:47)
[2020-01-16] MEDS ORDERED: POTASSIUM 25 MEQ EFFERV TAB ONE ×2 (06:47→09:38)
[2020-01-16] MEDS: HALOPERIDOL LACT 5 MG/ML INJ IV PRN (07:27)
[2020-01-16] MEDS ORDERED: MIDAZOLAM HCL 2 MG/2 ML INJ ONE ×2 (07:40→16:18)
[2020-01-16] MEDS ORDERED: HALOPERIDOL LACT 5 MG/ML INJ ONE ×2 (07:40→20:16)
[2020-01-16] MEDS: SPIRONOLACTONE 25 MG TABLET PO SCH (08:28)
[2020-01-16] MEDS: FOLIC ACID 1 MG in NA CHLORIDE 0.9% 50 ML IV SCH (08:31)
[2020-01-16] MEDS: DOXYCYCLINE 100 MG in NA CHLORIDE 0.9% 100 ML IVPB SCH (08:31)
[2020-01-16] MEDS: MIDAZOLAM HCL 2 MG/2 ML INJ IV PRN ×2 (08:32→16:06)
[2020-01-16] MEDS: CEFEPIME/SWI 1gm 10 ML IVP SCH (08:52)
[2020-01-16] MEDS: ENOXAPARIN 40 MG/0.4 ML SQ SCH (09:27)
[2020-01-16] MEDS: PANTOPRAZOLE 40 MG INJ IVP SCH (09:27)
[2020-01-16] MEDS: POTASSIUM 25 MEQ EFFERV TAB PO SCH (09:27)
[2020-01-16] MEDS: THIAMINE 200 MG/2 ML INJ IVP SCH ×2 (09:27→21:16)
[2020-01-16] MEDS: FENTANYL CITR 100 MCG/2 ML IV PRN (09:35)
[2020-01-16] MEDS ORDERED: THIAMINE 200 MG/2 ML INJ ONE ×2 (09:38→21:20)
[2020-01-16] MEDS ORDERED: PANTOPRAZOLE 40 MG INJ ONE (09:38)
[2020-01-16] MEDS ORDERED: ENOXAPARIN 40 MG/0.4 ML SQ ONE (09:39)
[2020-01-16] MEDS ORDERED: LORazepam 2 MG/ML VIAL ONE ×3 (09:47→20:16)
[2020-01-16] MEDS ORDERED: Meropenem 1000 MG/VIAL IV SCH (09:47)
[2020-01-16] MEDS ORDERED: FENTANYL CITR 100 MCG/2 ML ONE (09:48)
--- NOTE | 2020-01-16 09:52 | P.PN ---
Subjective Date of Service: 01/16/20 Primary Care Provider: unknown Chief Complaint: Respiratory failure Subjective: Other (Patient remains intubated. T-max 101.4.) Physical Examination - Vital Signs Temperature: 99.3 F Blood Pressure: 120/64 Pulse: 100 Respirations: 30 Pulse Ox (%): 95 - Physical Exam General: Other (Patient remains intubated. Response to pain and agitation noted.) Respiratory: Clear to auscultation bilaterally Cardiovascular: Normal pulses, Regular rate/rhythm Gastrointestinal: Normal bowel sounds, No rebound, No guarding Neurological: Other (Patient remains intubated. Slight sedation noted.) - Studies Medications List Reviewed: Yes Assessment & Plan Discharge Plan: LTAC Plan to discharge in: 48 Hours Physician Review Additional Text: Impression: Status epilepticus Acute respiratory failure now with acute respiratory distress syndrome with sputum culture positive for Pseudomonas aeruginosa pneumonia Acute on chronic anemia likely related to above Hypernatremia Hypocalcemia History of alcohol abuse/cocaine abuse History of hepatitis-C Hypertension Hyperlipidemia Plan: Status epilepticus: Seizures appears stable at this time. Patient remains on IV Keppra. Case discussed with Neurology. Continue with medication. Acute respiratory failure now with acute respiratory distress syndrome with sputum culture positive for Pseudomonas aeruginosa pneumonia: Patient remains intubated. Patient currently on AC/40% Fi02/peep of 12. Repeat sputum culture shows Pseudomonas but resistant to cefepime. Case discussed with pulmonology. Patient also with fever. Will discontinue cefepime and doxycycline. Will switch to meropenem. Will monitor fever closely. Patient also anemic. Will transfuse 1 unit to maintain hemoglobin above 8.0 considering multiple factors. Will continue to monitor the patient closely. Continue to recommend transfer to long-term acute care facility to continue current treatment. Pulmonology agrees with plan of care for long-term acute care facility placement. Will discuss with case management. agrees with plan of care. Acute on chronic anemia likely related to above: Hemoglobin slightly low compared to yesterday. Would transfuse 1 unit of blood. Maintain hemoglobin above 7.5 Hypernatremia: Continue D5W. Will monitor and adjust appropriately. Pulmonology to further monitor and adjust. Hypocalcemia: Continue monitor closely. History of alcohol abuse/cocaine abuse: Patient was negative upon admission. History of hepatitis-C: Will verify with family if this is not been treated in the past. Hypertension: Continue to hold medication. Hyperlipidemia: Hold medication. Time Spent Managing Pts Care (In Minutes): 55
[2020-01-16] MEDS: Meropenem 1,000 MG in NA CHLORIDE 0.9% 100 ML IV SCH ×2 (10:38→21:00)
[2020-01-16 11:08] LABS: Platelet Estimate ADEQ
[2020-01-16 11:09] LABS: Anisocytosis 1+; Blood Morphology Comment NOTED (NOT SEEN); Burr Cells 1+; Polychromasia SLIGHT
[2020-01-16 11:10] LABS: Basophilic Stippling 1+
--- NOTE | 2020-01-16 12:12 | P.PN ---
Subjective Date of Service: 01/27/20 Primary Care Provider: unknown Chief Complaint: Respiratory failure P no change in patient's condition he continues to hyperventilate still less some secretions unable to change to another mode of ventilation unable to wean the patient repeat cultures so a Pseudomonas resistant to cefepime he is responsive mildly hypernatremic Review of Systems is unable to be obtained Physical Examination - Vital Signs Temperature: 99.3 F Blood Pressure: 96/56 Pulse: 91 Respirations: 22 Pulse Ox (%): 91 - Physical Exam General: Cooperative Respiratory: Crackles/rales, Expiratory wheezes Cardiovascular: Normal S1 S2, Edema Gastrointestinal: Normal bowel sounds, Soft and benign - Studies Medications List Reviewed: Yes Assessment & Plan - Problems (Diagnosis) (1) Status epilepticus Status: Acute Plan: Seizures controlled (2) Respiratory failure Status: Acute Plan: Respiratory failure unable to wean patient off the ventilator Pseudomonas cyst on cefepime resistant change to meropenem patient's white count is declining is mildly anemic hemoglobin remains above 7 no evidence of active GI bleeding continue with water tube flushes patient is on assist control FiO2 40% still requiring a peep of rate with secretions Qualifiers: Chronicity: acute
[2020-01-16 16:02] VITALS: O2SAT 96
[2020-01-16] MEDS ORDERED: Meropenem 1 GM/100 ML BAG ONE (21:20)
[2020-01-17] MEDS: levETIRAcetam 1,000 MG in NA CHLORIDE 0.9% 100 ML IV SCH ×2 (00:44→13:09)
[2020-01-17] MEDS: ALBUTEROL 2.5 MG/3 ML NEB SOL NEB SCH ×2 (02:00→07:42)
[2020-01-17] MEDS: IPRATROPIUM BROM 0.5MG/2.5ML NEB SCH ×2 (02:00→07:42)
[2020-01-17] MEDS ORDERED: IPRATROPIUM BROM 0.5MG/2.5ML ONE ×2 (02:01→07:59)
[2020-01-17] MEDS ORDERED: ALBUTEROL 2.5 MG/3 ML NEB SOL ONE ×2 (02:01→07:59)
[2020-01-17] MEDS ORDERED: LORazepam 2 MG/ML VIAL ONE ×3 (04:27→14:26)
[2020-01-17 05:33] LABS: Absolute Lymphocytes (CBC) 1.4 K/uL (0.7-4.9); Basophils % 0.9 % (0-1.3); Lymphocytes % 12.3 % (15.3-44.8); MPV 9.4 fL (7.6-11.3); RBC Red Blood Cell Count 2.07 M/uL (4.33-5.43)
[2020-01-17 05:44] LABS: Hematocrit 19.4 % (39.6-49.0)
[2020-01-17 05:46] LABS: ALT/SGPT 33 U/L (12-78); AST/SGOT 66 U/L (15-37); Albumin 1.3 g/dL (3.4-5.0); Alkaline Phosphatase 111 U/L (45-117); BUN Blood Urea Nitrogen 17 mg/dL (7-18); Bicarbonate 31 mmol/L (21-32); Bilirubin Total 0.7 mg/dL (0.2-1.0); Glucose Level 102 mg/dL (74-106); Magnesium 1.9 mg/dL (1.8-2.4); Potassium 3.5 mmol/L (3.5-5.1); Protein, Total 5.9 g/dL (6.4-8.2); Sodium Level 152 mmol/L (136-145)
--- NOTE | 2020-01-17 07:39 | P.DS ---
Admission Date: 01/08/20 Discharge Date: 01/17/20 Primary Care Provider: unknown Disposition: [facility] Discharge Condition: FAIR Reason for Admission: Respiratory failure Consultations: Pulmonary-Dr. Russell Neurology-Dr. Cowart Procedures: CT Head: FINDINGS: An intracranial bleed is not seen . The ventricles are normal in caliber. No extra-axial fluid collection is noted. Low-density areas within the left basal ganglia, left frontal lobe and left occipital/parietal lobes compatible with old infarcts. Fluid within the sinuses/ mastoids is not seen. IMPRESSION: No acute intracranial abnormality is seen CTA Head: FINDINGS: The basilar, internal carotid, anterior cerebral, middle cerebral and posterior cerebral arteries are normal caliber. An aneurysm is not seen. A significant stenosis is not noted. IMPRESSION: Unremarkable CT angiogram head. CTA Neck: FINDINGS: The internal carotid arteries bilaterally are very tortuous. Mild calcified plaque is present within the common and internal carotid arteries bilaterally. Mild plaque is present within the vertebral arteries. The right vertebral artery is a little bit more dominant than the left. 6.7 centimeter mass is present within the subcutaneous tissue of the upper left posterior back IMPRESSION: Mild plaque within the carotid and vertebral arteries Follow up CXR: FINDINGS: Heart: The cardiothoracic silhouette is mildly enlarged. Lungs: Moderate central pulmonary vascular and interstitial prominence, bilateral perihilar and basilar opacities. Mediastinum: Thoracic aortic atherosclerosis. Pleura: Small bilateral pleural effusions. Bones: Multilevel spondylosis. No acute fracture. Upper abdomen: Unremarkable Other: The distal visualized portion of the right upper extremity PICC projects over the proximal to mid superior vena cava. Endotracheal tube tip projects 2.6 cm proximal to the carl. Nasogastric tube tip collimated off the [id number]. The distal visualized portion projects over the left upper quadrant in the expected region of the stomach. IMPRESSION: 1. The distal visualized portion of the right upper extremity PICC projects over the proximal to mid superior vena cava. 2. Findings which may be related to pulmonary congestion including small bilateral pleural effusions. Superimposed infection not excluded. Medical problem List: Status epilepticus Acute respiratory failure now with acute respiratory distress syndrome with sputum culture positive for Pseudomonas aeruginosa pneumonia Acute on chronic anemia likely related to above Hypernatremia Hypocalcemia History of alcohol abuse/cocaine abuse History of hepatitis-C Hypertension Hyperlipidemia Brief History of Present Illness: 69-year-old male with history of hypertension, hyperlipidemia, chronic alcohol/cocaine abuse. Patient was found to be unresponsive after drinking alcohol. He was brought in to the hospital. Patient found to have multiple electrolyte abnormalities. Patient also had had status epilepticus. Patient had multiple seizures requiring intubation. The patient was also hypotensive requiring vasopressors. The patient was placed on Keppra. The patient was admitted to ICU for further evaluation. CT scan showed no ischemic or hemorrhagic change. CT head angiogram unremarkable. CT angiogram neck showed no significant abnormality. Hospital Course: Patient presented with status epilepticus. Patient required intubation due to acute respiratory failure progressing to acute respiratory distress syndrome complicated with pneumonia. Sputum culture positive for Pseudomonas. Patient was seen and evaluated by Neurology. The patient was placed on IV Keppra. Initial CT head unremarkable showed no acute CVA. CT angiogram of the head and neck also unremarkable. The patient was stabilized and has remained in ICU. Pulmonology was consulted to address his respiratory condition. Blood cultures negative. Initial Sputum cultures were obtained. Initial sputum culture showed Pseudomonas. Patient was placed on IV antibiotic therapy. Repeat sputum culture showed Pseudomonas as well but resistant to multiple antibiotics. Current antibiotic includes IV meropenem 1 g twice daily. Patient currently stable this time. Patient remains on ventilator. Patient had been on vasopressors-Levophed. Patient no longer needing this requirement. Patient also anemic. Suspect acute on chronic anemia related to above issues. Patient may also have underlying GERD with history of alcohol abuse. Patient currently on IV Protonix. Patient started on transfusion of blood-2 units today. Maintain hemoglobin above 8.0. Initial hemoglobin 11.3. Now 6.7. The patient has been evaluated for long-term acute care facility placement. Patient has been approved. Case discussed with pulmonology and Neurology who agree with plan of care. Patient with electrolyte abnormalities including hypernatremia and hypocalcemia. This has been addressed. Patient also receiving nutrition through NG tube. Patient continue with water flushes through the NG tube is well. This can be further monitored at the long-term acute care facility placement. Patient with history of alcohol abuse/cocaine abuse. Urine drug screen was negative. Alcohol level was also negative. This will be further addressed as an outpatient. Cessation education will need to be provided. Patient with history of hypertension and hyperlipidemia. Both medications have been held. If blood pressure elevates consider adding medication. Restarted medication can be done once stabilize. Patient currently stable for transfer to long-term acute care facility. Case also discuss with who agrees with plan of care. Vital Signs/Physical Exam: Temp Pulse Resp BP Pulse Ox 100.3 F 108 H 23 H 111/58 L 95 01/17/20 03:00 01/17/20 06:00 01/17/20 06:00 01/17/20 06:00 01/17/20 06:00 General: Other (Patient alert to voice and stimulation, patient remains intubated.) Neck: Supple Respiratory: Clear to auscultation bilaterally Cardiovascular: Normal pulses Gastrointestinal: No masses, No rebound, No guarding Integumentary: Tenderness/swelling (Mild edema to the lower extremities.) Neurological: Other (Patient remains intubated and sedated.) Laboratory Data at Discharge: WBC 11.3 K/uL (4.3-10.9) H 01/17/20 05:15 Hgb 6.7 g/dL (13.6-17.9) L* 01/17/20 05:15 Hct 19.4 % (39.6-49.0) L* 01/17/20 05:15 Plt Count 133 K/uL (152-406) L 01/17/20 05:15 PT 18.3 SECONDS (9.5-12.5) H 01/11/20 05:40 INR 1.56 01/11/20 05:40 APTT 34.4 SECONDS (24.3-36.9) 01/11/20 05:40 Sodium 152 mmol/L (136-145) H 01/17/20 05:15 Potassium 3.5 mmol/L (3.5-5.1) 01/17/20 05:15 BUN 17 mg/dL (7-18) 01/17/20 05:15 Creatinine 0.67 mg/dL (0.55-1.3) 01/17/20 05:15 Glucose 102 mg/dL (74-106) 01/17/20 05:15 Phosphorus 3.1 mg/dL (2.5-4.9) 01/16/20 05:00 Magnesium 1.9 mg/dL (1.8-2.4) 01/17/20 05:15 Total Bilirubin 0.7 mg/dL (0.2-1.0) 01/17/20 05:15 AST 66 U/L (15-37) H 01/17/20 05:15 ALT 33 U/L (12-78) 01/17/20 05:15 Alkaline Phosphatase 111 U/L (45-117) 01/17/20 05:15 Lipase 26 U/L (73-393) L 01/11/20 05:40 Home Medications: Atorvastatin Calcium [Lipitor] 80 mg PO DAILY 06/15/18 Clopidogrel Bisulfate [Plavix*] 75 mg PO DAILY 06/15/18 Furosemide [Lasix*] 40 mg PO DAILY 06/15/18 B Complex with Vitamin C [Vitamin B-Complex with Vit C] 1 each PO DAILY 01/08/20 Clonidine HCl [Catapres] 0.1 mg PO BID 01/08/20 Patient Discharge Instructions: Patient stable for transfer to long-term acute care facility. Continue current medications at this time. Please see discharge summary for details. Diet: NG tube nutrition Activity: Patient currently bed-bound Followup: NONE,NONE [Primary Care Provider] - Time spent managing pt's care (in minutes): 55
[2020-01-17] MEDS: LORazepam 2 MG/ML VIAL IV PRN ×2 (08:10→14:13)
[2020-01-17] MEDS: POTASSIUM 25 MEQ EFFERV TAB PO SCH (08:10)
[2020-01-17] MEDS: ENOXAPARIN 40 MG/0.4 ML SQ SCH (08:10)
[2020-01-17] MEDS ORDERED: ACETAMINOPHEN 325 MG TABLET ONE (08:20)
[2020-01-17] MEDS ORDERED: POTASSIUM 25 MEQ EFFERV TAB ONE (08:21)
[2020-01-17] MEDS ORDERED: ENOXAPARIN 40 MG/0.4 ML SQ ONE (08:21)
[2020-01-17] MEDS ORDERED: PANTOPRAZOLE 40 MG INJ ONE (08:21)
[2020-01-17] MEDS: THIAMINE 200 MG/2 ML INJ IVP SCH (08:44)
[2020-01-17] MEDS ORDERED: ACETAMINOPHEN 500 MG TAB ONE ×2 (08:51→10:03)
[2020-01-17] MEDS ORDERED: THIAMINE 200 MG/2 ML INJ ONE (08:57)
[2020-01-17] MEDS ORDERED: PANTOPRAZOLE 40 MG INJ IVP SCH (09:00)
[2020-01-17] MEDS: ACETAMINOPHEN 500 MG TAB PO PRN ×2 (09:00→09:52)
[2020-01-17] MEDS ORDERED: D5W 1,000 ML IV SCH (09:00)
[2020-01-17] MEDS ORDERED: NA CHLORIDE 0.9% 250 ML ONE (09:55)
[2020-01-17] MEDS: MIDAZOLAM HCL 2 MG/2 ML INJ IV PRN (11:59)
[2020-01-17] MEDS: Meropenem 1,000 MG in NA CHLORIDE 0.9% 100 ML IV SCH (12:03)
[2020-01-17] MEDS ORDERED: MIDAZOLAM HCL 2 MG/2 ML INJ ONE (12:11)
[2020-01-17] MEDS: FOLIC ACID 1 MG in NA CHLORIDE 0.9% 50 ML IV SCH (13:09)
--- NOTE | 2020-01-22 08:53 | ECHO ---
HEIGHT: 5 ft 2 in WEIGHT: 210 lb 0 oz DATE OF STUDY: 01/11/[address]: Chilango Claire MD 2-DIMENSIONAL: YES M.MODE: YES DOPPLER: YES COLOR FLOW: YES TDS: YES PORTABLE: YES DEFINITY: BUBBLE STUDY: DIAGNOSIS: PULMONARY EDEMA CARDIAC HISTORY: CATHERIZATION: NO SURGERY: NO PROSTHETIC VALVE: NO PACEMAKER: NO MEASUREMENTS (cm) DIASTOLIC (NORMALS) SYSTOLIC (NORMALS) IVSd 1.0 (0.6-1.2) LA Diam 3.7 (1.9-4.0) LVEF 62% LVIDd 4.2 (3.5-5.7) LVIDs 2.8 (2.0-3.5) %FS 33% LVPWd 1.1 (0.6-1.2) Ao Diam 3.0 (2.0-3.7) 2 DIMENSIONAL ASSESSMENT: RIGHT ATRIUM: NORMAL LEFT ATRIUM: NORMAL RIGHT VENTRICLE: NORMAL LEFT VENTRICLE: NORMAL TRICUSPID VALVE: MILD TRICUSPID REGURGITATION MITRAL VALVE: MILD MITRAL REGURGITATION PULMONIC VALVE: NORMAL AORTIC VALVE: NORMAL PERICARDIAL EFFUSION: NONE AORTIC ROOT: NORMAL LEFT VENTRICULAR WALL MOTION: NORMAL DOPPLER/COLOR FLOW: SEE BELOW COMMENTS: NORMAL LEFT VENTRICULAR EJECTION FRACTION 55-60% WITH NORMAL WALL MOTION. PULMONARY HYPERTENSION WITH RIGHT VENTRICULAR SYSTOLIC PRESSURE OF 50-55 mmHg AND RIGHT ATRIAL PRESSURE >20mmHg. MILD MITRAL AND TRICUSPID REGURGITATION. TECHNOLOGIST: OZ RIZVI
--- NOTE | 2020-01-22 14:38 | EEG ---
CHART: [id number] TEST ID#: [id number] DATE OF STUDY: 01/09/2020 THE EEG WAS RECORDED [place] IN THE ICU ON A 14 CHANNEL MACHINE. ELECTRODES WERE APPLIED IN THE USUAL MANNER USING THE INTERNATIONAL 10-20 SYSTEM. THE WAKING BACKGROUND RHYTHM IN THIS RECORD CONSISTS OF VERY POORLY DEVELOPED AND POORLY ORGANIZED WAVES OF 4-6 HZ., IN A WIDE DISTRIBUTION WHICH ATTENUATE NORMALLY WITH EYE OPENING. THERE IS A ACTIVE FOCUS OF MODERATE VOLTAGE SHARP AND SLOW WAVE ACTIVITY IN THE RIGHT FRONTAL, CENTRAL AND TEMPORAL REGIONS. THE ACTIVITY OCCURS EVERY ONE TO TWO SECONDS. THERE ARE NO FOCAL OR LATERALIZING FEATURES. NO EPILEPTIFORM ACTIVITY APPEARS. SLEEP DID NOT OCCUR. HYPERVENTILATION WAS NOT PERFORMED. PHOTIC STIMULATION WAS NOT PERFORMED. IMPRESSION: THIS IS A MODERATELY ABNORMAL EEG DUE TO THE PRESENCE OF PERIODIC LATERALIZED RIGHT HEMISPHERIC EPILEPTIFORM DISCHARGES. THIS FINDING INDICATES THE PRESENCE OF A DISTRUCTIVE EPILEPTIFORM LESION SUCH A STROKE IN THIS REGION.
--- NOTE | 2020-01-22 14:43 | EEG ---
CHART: [id number] TEST ID#: [id number] DATE OF STUDY: 01/11/2020 THE EEG WAS RECORDED [place] IN THE ICU ON A 17 CHANNEL MACHINE. ELECTRODES WERE APPLIED IN THE USUAL MANNER USING THE INTERNATIONAL 10-20 SYSTEM. THE WAKING BACKGROUND RHYTHM IN THIS RECORD CONSISTS OF POORLY DEVELOPED AND POORLY ORGANIZED WAVES OF 4-6 HZ., IN A WIDE DISTRUBITION WHICH ATTENUATE NORMALLY WITH EYE OPENING. MODERATE VOLTAGE SHARP WAVE ACTIVITY MIXED WITH 1.5-3 HZ ACTIVITY IS EXPRESSED IN THE RIGHT FRONTAL REGION. THERE ARE NO FOCAL OR LATERALIZING FEATURES. NO EPILEPTIFORM ACTIVITY APPEARS. SLEEP DID NOT OCCUR. HYPERVENTILATION WAS NOT PERFORMED. PHOTIC STIMULATION PRODUCED NO DRIVING BILATERALLY. IMPRESSION: ABNORMAL EEG. COMPATED TO THE MOST RECENT STUDY THIS EEG HAS IMPROVED SLIGHTLY BUT IS STILL ABNORMAL DUE TO A FOCUS OF EPILEPTIFORM ACTIVITY IN THE RIGHT FRONTAL REGION. THE AREA IS LESS ACTIVE. NO ELECTROGRAPHIC SEIZURES OCCURRED DURING THIS STUDY.
[2020-01-27 20:08] VITALS: BP 96/56; TEMP 99.3
== END 2020-01-17 14:40 | DRG 207 ==
LOC: ER 10:12 → ERHOLD 12:49
PROVIDERS: ADMIT Hospitalist; ATTEND Family Medicine
PROC: 5A1955Z Respiratory Ventilation, Greater than 96 Consecutive Hours (ICD-10-PCS; principal; 2020-01-08)
PROC: 02HV33Z Insertion of Infusion Device into Superior Vena Cava, Percutaneous Approach (ICD-10-PCS; 2020-01-14)
PROC: 30233N1 Transfusion of Nonautologous Red Blood Cells into Peripheral Vein, Percutaneous Approach (ICD-10-PCS; 2020-01-17)
DX: J80 Acute respiratory distress syndrome (principal); J15.1 Pneumonia due to Pseudomonas; E87.3 Alkalosis; I69.351 Hemiplegia and hemiparesis following cerebral infarction affecting right dominant side; E87.0 Hyperosmolality and hypernatremia; Z16.29 Resistance to other single specified antibiotic; G40.901 Epilepsy, unspecified, not intractable, with status epilepticus; E87.6 Hypokalemia; F17.210 Nicotine dependence, cigarettes, uncomplicated; I95.9 Hypotension, unspecified; K21.9 Gastro-esophageal reflux disease without esophagitis; E83.51 Hypocalcemia; D64.9 Anemia, unspecified; I10 Essential (primary) hypertension; F14.10 Cocaine abuse, uncomplicated; F10.11 Alcohol abuse, in remission; E83.42 Hypomagnesemia; E78.5 Hyperlipidemia, unspecified; Z79.02 Long term (current) use of antithrombotics/antiplatelets; Z79.899 Other long term (current) drug therapy; Z88.8 Allergy status to other drugs, medicaments and biological substances; Z20.828 Contact with and (suspected) exposure to other viral communicable diseases
CPT/HCPCS: 31500; 36415; 36569; 51702; 70450; 70496; 70498; 71045; 80048; 80053; 80307; 80320; 82088; 82140; 82533; 82550; 82607; 82728; 82746; 82805; 82947; 83540; 83605; 83690; 83735; 83880; 84100; 84132; 84145; 84439; 84443; 84466; 84484; 85025; 85044; 85610; 85730; 86850; 86900; 86901; 87040; 87070; 87077; 87186; 87205; 87324; 87449; 93005; 93306; 94002; 94003; 95816; 99291; 99292; C9113; J0610; J0692; J0696; J1630; J1650; J1720; J1940; J1953; J2185; J2250; J3010; J3411; J3475; J3480; J7030; J7040; J7050; J7060; P9016; P9047; Q2009; Q9967; U0003

== ENCOUNTER 2020-11-20 16:18 | Inpatient (IN) | payer OTHER ==
[2020-11-20 17:33] LABS: Absolute Lymphocytes (CBC) 0.8 K/uL (0.7-4.9); Basophils % 0.3 % (0-1.3); Hematocrit 43.3 % (39.6-49.0); Lymphocytes % 6.3 % (15.3-44.8); MPV 7.8 fL (7.6-11.3); RBC Red Blood Cell Count 5.03 M/uL (4.33-5.43)
[2020-11-20] MEDS ORDERED: MORPHINE 4 MG/ML SYR ONE ×2 (17:54→19:48)
[2020-11-20] MEDS ORDERED: ONDANSETRON 4 MG/2 ML VIAL ONE ×3 (17:54→21:23)
[2020-11-20 18:01] LABS: Albumin 3.7 g/dL (3.4-5.0); Bilirubin Direct 0.2 mg/dL (0-0.2); Bilirubin Total 0.8 mg/dL (0.2-1.0); Potassium 4.3 mmol/L (3.5-5.1); Protein, Total 8.8 g/dL (6.4-8.2)
--- NOTE | 2020-11-20 18:31 | RAD REPORT ---
EXAM DESCRIPTION: CTAbdomen Pelvis W Contrast - 11/20/2020 5:59 pm CLINICAL HISTORY: Abdominal pain. ABD PAIN COMPARISON: No comparisons TECHNIQUE: Biphasic CT imaging of the abdomen and pelvis was performed with 100 ml non-ionic IV cont rast. All CT scans are performed using dose optimization technique as appropriate and may include automated exposure control or mA/KV adjustment according to patient size. FINDINGS: The lung bases are clear.Small hiatal hernia. The liver, spleen, pancreas, adrenal glands and kidneys are within normal limits. Small cysts are pre sent involving the right kidney. Mild dilatation of numerous small bowel loops in the mid and lower abdomen are noted. This is compati ble with a mild mechanical small-bowel obstruction. Point of transition appears to be at the level of the right lower quadrant small bowel anastomosis (image 45/53). The appendix is normal. No evidenc e of significant lymphadenopathy. Moderate fat containing left inguinal hernia. Postsurgical changes in the region of the on the likely is noted. Mild lumbar degenerative changes. IMPRESSION: [id number] developing mechanical small-bowel obstruction. Transition point appears to be at the right lower quadrant small bowel anastomosis site. Moderate fat containing left inguinal hernia.
--- NOTE | 2020-11-20 18:48 | ER ---
Nurse's Notes [facility] Name: Maik German Age: 70 yrs Sex: Male : 1950 Arrival Date: 11/20/2020 Time: 16:19 Bed 8 Private MD: Juliocesar Thomas R Diagnosis: Small Bowel Obstruction Presentation: 11/20 16:30 Chief complaint: Patient states: Abdominal pain, nausea, vomiting x 1 day. stated, kg " He slid out of his wheelchair the other day and I helped him back in and I felt a bulge on his stomach. I think his hernia might be back. This is how he acted last time when it was strangulated. ". Coronavirus screen: Vaccine status: Patient reports being unvaccinated. nausea, vomiting. Client presents with at least one sign or symptom that may indicate coronavirus-19. Standard/surgical mask placed on the client. Provider contacted for isolation considerations. Ebola Screen: Patient negative for fever greater than or equal to 101.5 degrees Fahrenheit, and additional compatible Ebola Virus Disease symptoms Patient denies exposure to infectious person. Patient denies travel to an Ebola-affected area in the 21 days before illness onset. Initial Sepsis Screen: Does the patient meet any 2 criteria? No. Patient's initial sepsis screen is negative. Does the patient have a suspected source of infection? No. Patient's initial sepsis screen is negative. Risk Assessment: Do you want to hurt yourself or someone else? Patient reports no desire to harm self or others. Onset of symptoms was November 19, 2020. 16:30 Method Of Arrival: Wheelchair kg 16:30 Acuity: EMMA 3 kg Triage Assessment: 16:34 General: Appears in no apparent distress. Behavior is calm, cooperative, appropriate kg for age, quiet. Pain: Complains of pain in umbilical area, right upper quadrant, left upper quadrant, right lower quadrant and left lower quadrant. GI: Reports nausea, vomiting. Historical: - Allergies: 16:34 Lisinopril; kg 20:21 Cipro; ea - Home Meds: 16:34 levetiracetam 500 mg oral tab 1 tab 2 times per day [Active]; metoprolol tartrate 25 mg kg Oral tab 1 tab once daily [Active]; furosemide 40 mg Oral tab 1 tab once daily [Active]; pantoprazole 40 mg oral TbEC 1 tab once daily [Active]; clopidogrel 75 mg Oral tab 1 tab once daily [Active]; atorvastatin 20 mg oral tab 1 tab once daily [Active]; thiamine HCl (vitamin B1) 100 mg Oral tab 100 mg daily [Active]; spironolactone 25 mg Oral tab 1 tab once daily [Active]; - PMHx: 16:34 Cellulitis; CVA; Hyperlipidemia; Hypertension; Seizure; kg - PSHx: 16:34 Hernia repair sx x 2; kg - Immunization history:: Adult Immunizations not up to date, Client reports having NOT received the Covid vaccine. - Social history:: Smoking status: Patient reports the use of cigarette tobacco products, smokes one pack cigarettes per day. Patient uses alcohol, on a daily basis. Screenin:38 Abuse screen: Denies threats or abuse. Denies injuries from another. Nutritional kg screening: No deficits noted. Tuberculosis screening: No symptoms or risk factors identified. Fall Risk None identified. No fall in past 12 months (0 pts). Secondary diagnosis (15 points) CVA, No IV (0 pts). Ambulatory Aid- None/Bed Rest/Nurse Assist (0 pts). Gait- Impaired (20 pts.). Mental Status- Oriented to own ability (0 pts). Total Valencia Fall Scale indicates Low Risk Score (25-44 pts). Fall prevention measures have been instituted. Side Rails Up X 2 Placed close to Nursing Station Frequent Obs/Assesments occuring Family Present and informed to notify staff if they need to leave bedside As available Patient and Family Educated on Fall Prevention Program and strategies. Assessment: 17:23 Reassessment: Patient appears in no apparent distress at this time. Pain: Complains of ch5 pain in abdomen Pain currently is 9 out of 10 on a pain scale. GI: Reports upper abdominal pain, nausea. 21:05 Reassessment: Pt states he his pain was much better after the morphine but around 2049 wg his pain started to get bad again. Contacted [employer]ING UNIT OPERATOR Jasper Adams and received one time verbal order for 0.5mg of Dilauded IV. Vital Signs: 16:30 BP 154 / 66; Pulse 69; Resp 20; Temp 98.0(TE); Pulse Ox 100% on R/A; Weight 99.79 kg kg (R); Height 5 ft. 4 in. (162.56 cm) (R); Pain 9/10; 17:24 BP 157 / 65; Pulse 65; Resp 18; Pain 9/10; ch5 18:30 Pain 2/10; wg 19:15 BP 142 / 78; Pulse 84; Resp 18; Pulse Ox 99% on R/A; Pain 8/10; wg 21:04 BP 138 / 80; Pulse 72; Resp 18; Pulse Ox 100% on R/A; Pain 8/10; wg 23:10 Pain 4/10; wg 16:30 Body Mass Index 37.76 (99.79 kg, 162.56 cm) kg ED Course: 16:19 Patient arrived in ED. mr 16:19 Juliocesar Thomas MD is Private Physician. mr 16:34 Triage completed. kg 16:38 Arm band placed on left wrist. kg 16:39 Patient has correct armband on for positive identification. Placed in gown. Bed in low kg position. Call light in reach. Side rails up X2. Adult w/ patient. 16:57 Brenden Echevarria PA is PHCP. jr8 16:57 John May MD is Attending Physician. jr8 17:14 Fabricio Kim RN is Primary Nurse. ch5 17:24 Inserted saline lock: 20 gauge in right forearm, using aseptic technique. ch5 17:59 CT Abd/Pelvis - IV Contrast Only In Process Unspecified. EDMS 18:46 Ramana Sam MD is Hospitalizing Provider. jr8 19:43 No provider procedures requiring assistance completed. Patient admitted, IV remains in ea place. 22:49 Report given to Report called to AMALIA Mosquera. wg Administered Medications: 17:31 Drug: Zofran (Ondansetron) 4 mg Route: IVP; Site: right upper arm; ch5 18:19 Follow up: Response: Pain is decreased ch5 17:32 Drug: morphine 4 mg Route: IVP; Site: right upper arm; ch5 18:19 Follow up: Response: Pain is decreased ch5 19:19 Drug: Flagyl (metroNIDAZOLE) 500 mg Volume: 100 ml; Route: IVPB; Rate: 200 ml/hr; wg Infused Over: 30 mins; Site: right antecubital; 20:00 Follow up: Response: No adverse reaction; IV Status: Completed infusion; IV Intake: wg 100ml 19:21 Drug: Nicoderm CQ Patch 21 mg/24 hr 1 patches Route: Transdermal; Site: anterior chest wg wall; 20:46 Follow up: Response: Nausea is decreased wg 20:47 Follow up: Response: No adverse reaction wg 19:30 Drug: morphine 4 mg Route: IVP; Site: right antecubital; wg 20:46 Follow up: Response: No adverse reaction wg 19:31 Drug: Zofran (Ondansetron) 4 mg Route: IVP; Site: right antecubital; wg 20:21 Not Given (Patient Refused): Cipro (ciprofloxacin) 400 mg 200 ml IVPB once over 60 mins ea 20:36 Drug: Mefoxin (cefOXitin) 1 grams Route: IVPB; Infused Over: 30 mins; Site: right jb4 antecubital; 20:47 Follow up: Response: No adverse reaction wg 21:04 Drug: Dilaudid (HYDROmorphone) 0.5 mg Route: IVP; Infused Over: 2 mins; Site: right wg antecubital; 23:10 Follow up: Pain 4/10 Adult wg Intake: 20:00 IV: 100ml; Total: 100ml. wg Outcome: 18:47 Decision to Hospitalize by Provider. jrParveen 19:43 Condition: stable ea 19:43 Instructed on the need for admit. 23:09 Admitted to Tele accompanied by nurse, via wheelchair, room 216, with chart, Report wg called to AMALIA Mosquera 23:20 Patient left the ED. wg Signatures: Dispatcher [employer] EDMS Connie German mr SwathiBrenden PA PA jr8 Don Kate RN RN jb4 Rosalinda Acuna RN RN ea Graham, Kristen, RN RN kg Heath, Christopher, RN RN ch5 Benny Cornejo RN
--- NOTE | 2020-11-20 18:48 | EDPHYS ---
Physician Documentation [facility] Name: Maik German Age: 70 yrs Sex: Male : 1950 Arrival Date: 11/20/2020 Time: 16:19 Bed 8 Private MD: Juliocesar Thomas R ED Physician John May HPI: 11/20 18:44 This 70 yrs old Male presents to ER via Wheelchair with complaints of jr8 Abdominal Pain. 18:44 The patient presents with abdominal pain Mid abdominal. Onset: The symptoms/episode jr8 began/occurred acutely, today. The symptoms do not radiate. Associated signs and symptoms: Pertinent positives: nausea and vomiting. The symptoms are described as vague. Modifying factors: The symptoms are alleviated by nothing, the symptoms are aggravated by nothing. Severity of pain: At its worst the pain was moderate in the emergency department the pain is unchanged. It is unknown whether or not the patient has had similar symptoms in the past. The patient has not recently seen a physician. Historical: - Allergies: 16:34 Lisinopril; kg 20:21 Cipro; ea - Home Meds: 16:34 levetiracetam 500 mg oral tab 1 tab 2 times per day [Active]; metoprolol tartrate 25 mg kg Oral tab 1 tab once daily [Active]; furosemide 40 mg Oral tab 1 tab once daily [Active]; pantoprazole 40 mg oral TbEC 1 tab once daily [Active]; clopidogrel 75 mg Oral tab 1 tab once daily [Active]; atorvastatin 20 mg oral tab 1 tab once daily [Active]; thiamine HCl (vitamin B1) 100 mg Oral tab 100 mg daily [Active]; spironolactone 25 mg Oral tab 1 tab once daily [Active]; - PMHx: 16:34 Cellulitis; CVA; Hyperlipidemia; Hypertension; Seizure; kg - PSHx: 16:34 Hernia repair sx x 2; kg - Immunization history:: Adult Immunizations not up to date, Client reports having NOT received the Covid vaccine. - Social history:: Smoking status: Patient reports the use of cigarette tobacco products, smokes one pack cigarettes per day. Patient uses alcohol, on a daily basis. ROS: 18:44 Eyes: Negative for injury, pain, redness, and discharge, ENT: Negative for injury, jr8 pain, and discharge, Neck: Negative for injury, pain, and swelling, Cardiovascular: Negative for chest pain, palpitations, and edema, Respiratory: Negative for shortness of breath, cough, wheezing, and pleuritic chest pain, Back: Negative for injury and pain, MS/Extremity: Negative for injury and deformity, Skin: Negative for injury, rash, and discoloration, Neuro: Negative for headache, weakness, numbness, tingling, and seizure. 18:44 Abdomen/GI: Positive for abdominal pain, nausea and vomiting, Negative for diarrhea, constipation, abdominal cramps, abdominal distension. Exam: 18:44 Constitutional: This is a well developed, well nourished patient who is awake, alert, jr8 and in no acute distress. Cardiovascular: Regular rate and rhythm with a normal S1 and S2. No gallops, murmurs, or rubs. Normal PMI, no JVD. No pulse deficits. Respiratory: Lungs have equal breath sounds bilaterally, clear to auscultation and percussion. No rales, rhonchi or wheezes noted. No increased work of breathing, no retractions or nasal flaring. Back: No spinal tenderness. No costovertebral tenderness. Full range of motion. Skin: Warm, dry with normal turgor. Normal color with no rashes, no lesions, and no evidence of cellulitis. MS/ Extremity: Pulses equal, no cyanosis. Neurovascular intact. Full, normal range of motion. Neuro: Awake and alert, GCS 15, oriented to person, place, time, and situation. Cranial nerves II-XII grossly intact. Motor strength 5/5 in all extremities. Sensory grossly intact. 18:44 Abdomen/GI: Inspection: obese scar(s), are noted in the umbilical area, Bowel sounds: diminished, in all quadrants, Palpation: soft, in all quadrants, moderate abdominal tenderness, in the Mid abdomen, mass, is not appreciated, rebound tenderness, is not appreciated, voluntary guarding, is not appreciated, involuntary guarding, is not appreciated, no appreciated organomegaly, Indicators: McBurney's point is not tender, Vaughan's sign is negative, Rovsing's sign is negative, Liver: tenderness, is not appreciated. Vital Signs: 16:30 BP 154 / 66; Pulse 69; Resp 20; Temp 98.0(TE); Pulse Ox 100% on R/A; Weight 99.79 kg kg (R); Height 5 ft. 4 in. (162.56 cm) (R); Pain 9/10; 17:24 BP 157 / 65; Pulse 65; Resp 18; Pain 9/10; ch5 18:30 Pain 2/10; wg 19:15 BP 142 / 78; Pulse 84; Resp 18; Pulse Ox 99% on R/A; Pain 8/10; wg 21:04 BP 138 / 80; Pulse 72; Resp 18; Pulse Ox 100% on R/A; Pain 8/10; wg 23:10 Pain 4/10; wg 16:30 Body Mass Index 37.76 (99.79 kg, 162.56 cm) kg MDM: 16:57 Patient medically screened. jr8 18:44 Data reviewed: vital signs, nurses notes, lab test result(s), radiologic studies, CT jr8 scan. Data interpreted: Pulse oximetry: on room air is 100 %. Interpretation: normal. Counseling: I had a detailed discussion with the patient and/or guardian regarding: the historical points, exam findings, and any diagnostic results supporting the discharge/admit diagnosis, lab results, radiology results, the need for further work-up and treatment in the hospital. ED course: Patient has small bowel obstruction noted on CT scan. Dr. Hawley has been consulted and will see patient. Patient admitted to Dr. Sam. Currently no active vomiting and pain well controlled at this time. We will hold on nasogastric tube for the time being.. 11/20 17:02 Order name: Basic Metabolic Panel; Complete Time: 18:[address] [facility] 11/20 17:02 Order name: CBC with Diff; Complete Time: 17:[address] [facility] 11/20 17:02 Order name: Hepatic Function; Complete Time: 18:[address] [facility] 11/20 17:02 Order name: Lipase; Complete Time: 18:[address] [facility] 11/20 19:40 Order name: COVID-19 : Document "Date of Symptom Onset" if Symptomatic. 11/20 20:48 Order name: SARS-COV-2 RT PCR; Complete Time: 21:09 [facility] 11/20 17:26 Order name: CT Abd/Pelvis - IV Contrast Only; Complete Time: 18:[address] [facility] 11/20 20:05 Order name: Abdomen 1 View (KUB) [facility] 11/20 20:05 Order name: Abdomen 1 View (KUB) [facility] 11/20 17:02 Order name: IV Saline Lock; Complete Time: 17:25 jr8 11/20 17:02 Order name: Labs collected and sent; Complete Time: 17: jr8 Administered Medications: 17:31 Drug: Zofran (Ondansetron) 4 mg Route: IVP; Site: right upper arm; ch5 18:19 Follow up: Response: Pain is decreased ch5 17:32 Drug: morphine 4 mg Route: IVP; Site: right upper arm; ch5 18:19 Follow up: Response: Pain is decreased ch5 19:19 Drug: Flagyl (metroNIDAZOLE) 500 mg Volume: 100 ml; Route: IVPB; Rate: 200 ml/hr; wg Infused Over: 30 mins; Site: right antecubital; 20:00 Follow up: Response: No adverse reaction; IV Status: Completed infusion; IV Intake: wg 100ml 19:21 Drug: Nicoderm CQ Patch 21 mg/24 hr 1 patches Route: Transdermal; Site: anterior chest wg wall; 20:46 Follow up: Response: Nausea is decreased wg 20:47 Follow up: Response: No adverse reaction wg 19:30 Drug: morphine 4 mg Route: IVP; Site: right antecubital; wg 20:46 Follow up: Response: No adverse reaction wg 19:31 Drug: Zofran (Ondansetron) 4 mg Route: IVP; Site: right antecubital; wg 20:21 Not Given (Patient Refused): Cipro (ciprofloxacin) 400 mg 200 ml IVPB once over 60 mins ea 20:36 Drug: Mefoxin (cefOXitin) 1 grams Route: IVPB; Infused Over: 30 mins; Site: right jb4 antecubital; 20:47 Follow up: Response: No adverse reaction wg 21:04 Drug: Dilaudid (HYDROmorphone) 0.5 mg Route: IVP; Infused Over: 2 mins; Site: right wg antecubital; 23:10 Follow up: Pain 4/10 Adult wg Disposition: 11/21 11:19 Co-signature as Attending Physician, John May MD I agree with the assessment and kdr plan of care. Disposition Summary: 11/20/20 18:47 Hospitalization Ordered Hospitalization Status: Inpatient Admission jr8 Provider: Sam, Ramana jr8 Location: Telemetry/MedSurg (Inpatient) jr8 Condition: Stable jr8 Problem: new jr8 Symptoms: have improved jr8 Bed/Room Type: Standard [facility] Room Assignment: 216(11/20/20 21:38) tl1 Diagnosis - Small Bowel Obstruction jr8 Forms: - Medication Reconciliation Form jr8 - SBAR form jr8 Signatures: Dispatcher [employer] EDMS John May MD MD kdr Roszak, Josh, PA PA jr8 Gina Ortiz RN RN tl1 oDn Kate RN RN jb4 Rosalinda Acuna RN RN ea Graham, Kristen, RN RN kg Heath, Christopher, RN RN ch5 Benny Cornejo RN wg Corrections: (The following items were deleted from the chart) 11/20 21:38 18:47 jr8 tl1
[2020-11-20] MEDS ORDERED: METRONIDAZOLE 500mg IVPB 500 MG/100 ML BAG IV ONE (19:36)
[2020-11-20] MEDS ORDERED: CIPROFLOXACIN 400mg IV 0 MG/0 ML BAG IV ONE (19:36)
[2020-11-20] MEDS ORDERED: NICOTINE 21 MG/PAT TD ONE (19:54)
--- NOTE | 2020-11-20 20:04 | P.HP ---
Certification for Inpatient Patient admitted to: Inpatient With expected LOS: >2 Midnights Patient will require the following post-hospital care: None Practitioner: I am a practitioner with admitting privileges, knowledge of patient current condition, hospital course, and medical plan of care. Services: Services provided to patient in accordance with Admission requirements found in Title 42 Section 412.3 of the Code of Federal Regulations Patient History Date of Service: 11/20/20 Primary Care Provider: Dr. Miranda Reason for admission: Small bowel obstruction History of Present Illness: 70-year-old male with history of CVA, hypertension, hyperlipidemia, seizure disorder presents the emergency department for abdominal pain and distention. Patient reports last bowel movement was this morning and normal but soon after he began having abdominal distention and pain. Patient with history of hernia repair x2. Patient was evaluated in the emergency department labs are significant for white blood cell count 13 creatinine 1.33 GFR [address] abdomen pelvis demonstrated mild to moderate developing mechanical small bowel obstruction with transition point appearing to be at the right lower quadrant small bowel anastomosis site. Also moderate fat-containing left inguinal hernia. ED provider discussed case with general surgery, wants patient admitted to hospital service and will consult. Patient given IV antibiotics and fluids in the emergency room ED provider wishes to admit for further evaluation and management of small bowel obstruction. Allergies No Known Allergies Allergy (Unverified 06/15/18 11:11) Home Medications: Atorvastatin Calcium [Lipitor] 80 mg PO DAILY 06/15/18 Clopidogrel Bisulfate [Plavix*] 75 mg PO DAILY 06/15/18 Furosemide [Lasix*] 40 mg PO DAILY 06/15/18 B Complex with Vitamin C [Vitamin B-Complex with Vit C] 1 each PO DAILY 01/08/20 cloNIDine HCL [Catapres] 0.1 mg PO BID 01/08/20 - Past Medical/Surgical History Diabetic: No -: stroke-2015 -: Hyperlipidemia -: Hypertension -: hepatitis c -: sleep apnea -: hernia repair Psychosocial/ Personal History: Lives at home with - Family History Father -: Heart disease - Social History Smoking Status: Current every day smoker Counseled patient to stop smoking for: less than 10 minutes Smoking therapy provided: Yes Alcohol use: Yes CD- Drugs: Yes Caffeine use: No Place of Residence: Home Review of Systems 10-point ROS is otherwise unremarkable Gastrointestinal: Nausea, Abdominal Pain, Distention Physical Examination - Physical Exam General: Alert, In no apparent distress, Oriented x3, Obese HEENT: Atraumatic, PERRLA, Mucous membr. moist/pink, EOMI, Sclerae nonicteric Neck: Supple, 2+ carotid pulse no bruit, No LAD, Without JVD or thyroid abnormality Respiratory: Clear to auscultation bilaterally, Normal air movement Cardiovascular: Regular rate/rhythm, Normal S1 S2 Gastrointestinal: Hypoactive, No tenderness, Other (Abdomen soft, mild generali zed abdominal tenderness), Distended Musculoskeletal: No tenderness Integumentary: No rashes Neurological: Normal speech, Normal strength at 5/5 x4 extr, Normal tone, Normal affect - Studies Laboratory Data (last 24 hrs) 11/20/20 17:19: WBC 13.00 H, Hgb 14.6, Hct 43.3, Plt Count 235 11/20/20 17:19: Sodium 136, Potassium 4.3, BUN 16, Creatinine 1.33 H, Glucose 113 H, Total Bilirubin 0.8, AST 15, ALT 24, Alkaline Phosphatase 84, Lipase 147 Assessment and Plan - Plan Assessment: Mechanical small bowel obstruction Hypertension Hyperlipidemia History of CVA/seizure disorder Plan: Mechanical small bowel obstruction: Case was discussed with general surgery by ED provider, n.p.o., IVF, IV antibiotics as needed pain medications and antiemetics. Appreciate further input from general surgery. KUB in the morning. Hypertension: We will need to hold oral medications at this time will provide medication on a as needed basis Hyperlipidemia: Hold home medications at this time restart when appropriate History of CVA/seizure disorder: Continue home medications when appropriate. DVT PPX: SCD Code status: Full Discharge Plan: Home Plan to discharge in: Greater than 2 days - Advance Directives Does patient have a Living Will: No Does patient have a Durable POA for Healthcare: No - Code Status/Comfort Care Code Status Assessed: Yes (Full code) Critical Care: No Time Spent Managing Pts Care (In Minutes): 55
[2020-11-20] MEDS ORDERED: CEFOXITIN SODIUM 1 GM/VIAL ONE (20:52)
[2020-11-20] MEDS ORDERED: NA CHLORIDE 0.9% 50 ML ONE (20:52)
[2020-11-20] MEDS ORDERED: HYDROMORPHONE HCL 0.5 MG/0.5 ML INJ ONE (21:22)
[2020-11-20] MEDS: NICOTINE 21 MG/PAT TD SCH (22:24)
[2020-11-20] MEDS: NA CHLORIDE 0.9% 1,000 ML IV SCH (22:24)
[2020-11-20] MEDS ORDERED: ONDANSETRON 4 MG/2 ML VIAL IV PRN (22:24)
[2020-11-20 23:40] VITALS: O2SAT 100
[2020-11-21 00:11] VITALS: BMI 37.8
[2020-11-21] MEDS: METRONIDAZOLE 500mg IVPB 500 MG/100 ML BAG IV SCH ×3 (00:46→16:23)
[2020-11-21] MEDS: MORPHINE 2 MG/ML SYR IV PRN ×3 (03:02→19:35)
[2020-11-21 03:34] LABS: Urine Appearance CLEAR (Clear); Urine Bilirubin NEGATIVE (Negative); Urine Blood NEGATIVE (Negative); Urine Color YELLOW (Yellow); Urine Glucose NEGATIVE (Negative); Urine Microscopic Reflex NO UMIC; Urine Protein NEGATIVE (Negative); Urine Specific Gravity >=1.030 (1.005-1.030); Urine Urobilinogen 0.2 mg/dL (0.2-1.0)
[2020-11-21] MEDS ORDERED: CEFOXITIN SODIUM 1 GM/VIAL ONE ×3 (03:36→21:57)
[2020-11-21] MEDS: CEFOXITIN 1 GM in NA CHLORIDE 0.9% 50 ML IVPB SCH ×3 (04:31→22:27)
[2020-11-21] MEDS ORDERED: CEFOXITIN SODIUM 1 GM/VIAL IVPB SCH (06:00)
[2020-11-21 06:13] LABS: Absolute Lymphocytes (CBC) 1.5 K/uL (0.7-4.9); Basophils % 0.6 % (0-1.3); Hematocrit 40.8 % (39.6-49.0); Lymphocytes % 18.2 % (15.3-44.8); MPV 8.2 fL (7.6-11.3); RBC Red Blood Cell Count 4.73 M/uL (4.33-5.43)
--- NOTE | 2020-11-21 06:20 | P.PN ---
Date of Service: 11/21/20 Subjective: Patient states he is passing flatus this morning, still with intermittent abdominal pain, not as severe as before. No bowel movement today ROS: 10 point review of systems otherwise negative Physical Exam: GEN: Alert, oriented, NAD HEENT: Normal conjunctiva, sclera anicteric CV: Regular rate and rhythm, no edema Pulm: Nonlabored respiration on room air ABD: Soft, nontender, mildly distended Integumentary: No rashes Neuro: Normal speech, normal affect Problem List Mechanical small bowel obstruction Hypertension Hyperlipidemia History of CVA/seizure disorder Continue n.p.o., IV fluids, prophylactic IV antibiotics Pain medication as needed, antiemetics as needed General surgery consulted KUB this morning with no significant change Passing flatus which is reassuring Discussed with general surgery, plan for small bowel series in the morning, if continues with obstructive pattern may need surgery tomorrow DVT PPX: SCD Code status: Full Dispo: anticipate dc home in ~1-2 days Time Spent: 35 minutes
[2020-11-21 06:44] LABS: Albumin 3.1 g/dL (3.4-5.0); Bilirubin Total 1.1 mg/dL (0.2-1.0); Magnesium 1.8 mg/dL (1.8-2.4); Potassium 3.9 mmol/L (3.5-5.1); Protein, Total 7.5 g/dL (6.4-8.2)
--- NOTE | 2020-11-21 07:27 | RAD REPORT ---
EXAM DESCRIPTION: RAD - Abdomen 1 View (KUB) - 11/21/2020 5:50 am CLINICAL HISTORY: eval sbo COMPARISON: Abdomen Pelvis W Contrast dated 11/20/2020 FINDINGS: Mildly dilated small bowel centrally No acute osseous abnormality.Visualized lungs are unr emarkable.No abnormal calcifications. Contrast within the bladder. IMPRESSION: Mildly dilated small bowel centrally likely not significantly changed compared with 10/24. Findings remain concerning for small bowel obstruction.
[2020-11-21] MEDS ORDERED: CIPROFLOXACIN 400mg IV 400 MG/200 ML BAG IV SCH (09:00)
[2020-11-21] MEDS: NICOTINE 21 MG/PAT TD SCH (09:07)
[2020-11-21] MEDS: NA CHLORIDE 0.9% 1,000 ML IV SCH ×3 (09:07→21:15)
--- NOTE | 2020-11-21 17:07 | CON ---
Date of Consultation: 11/21/2020 Reason For Service: Small bowel obstruction. History Of Present Illness: This is the case of a 70-year-old patient, who came here with abdominal distention, 1 day in duration, nausea and vomiting. That happened after eating some cabbage and the day before eating some peppers. He had an emergent surgery for a strangulated hernia in March of this year in another institution that they have to do bowel resection. They even have to fix the her rafi with mesh in the midline. He has been doing okay, but developed symptoms yesterday, came to the ER, diagnosed with a small bowel obstruction, and surgical consult was obtained. He denies any dysur ia, hematuria, hematochezia, or melena. He denies any recent travel out of the country. He denies a [place] family member sick at home. He does not remember any previous colonoscopy. Past Medical History: High blood pressure. Medical history includes also fissures, hyperlipidemia, and CVA. Medications: Include multivitamin, furosemide, and metoprolol. Past Surgical History: Include hernia repairs, inguinal and ventral and what we see as a small bowel resection, although he does mention that there was no anastomosis in that area. We do not have the previous chart. Review of Systems: See H and P. Ten points otherwise unremarkable. Physical Examination: General: The patient is awake, alert. HEENT: Pupils are equal and reactive. Anicteric. Neck: Supple. Chest: Clear. Abdomen: Softly distended. No peritonitis. Rectal: Deferred. Extremities: Good capillary refill. Laboratory Data: Blood work shows WBC count of 8.3, hemoglobin of 13.5 with potassium of 3.9. CAT s can of the abdomen and pelvis shows small bowel obstruction. They believe the point of obstruction i f anything else is located in the right upper side of the abdomen. Assessment: A 70-year-old patient with bowel obstruction. He feels little bit better today. He say s he is even passing a lot of gas today, so we are going to continue bowel rest today. We are going to do small bowel series tomorrow and we continue with the obstruction, then we will proceed accordin gly. If he improves, then once again advised the importance of chewing his food and fix his teeth an d make sure he takes his time chewing his food and he was advised also the importance of following up with the GI doctor for his colonoscopy. BABITA Voice ID: [id number] Report ID: [id number]
[2020-11-21] MEDS: levETIRAcetam 500 MG in NA CHLORIDE 0.9% 100 ML IV SCH (21:00)
[2020-11-21] MEDS ORDERED: NA CHLORIDE 0.9% 100 ML ONE (21:10)
[2020-11-21] MEDS ORDERED: LEVETIRACETAM 500 MG/5 ML VIAL IV ONE (21:36)
[2020-11-22] MEDS: METRONIDAZOLE 500mg IVPB 500 MG/100 ML BAG IV SCH ×3 (00:54→16:20)
[2020-11-22] MEDS: MORPHINE 2 MG/ML SYR IV PRN ×3 (02:49→19:44)
[2020-11-22] MEDS: NA CHLORIDE 0.9% 1,000 ML IV SCH ×2 (04:24→14:16)
--- NOTE | 2020-11-22 06:07 | P.PN ---
Date of Service: 11/22/20 Subjective: Feeling better, had a bowel movement overnight, not passing much gas. Still having intermittent abdominal pain. Reports he is hungry ROS: 10 point review of systems otherwise negative Physical Exam: GEN: Alert, oriented, NAD HEENT: Normal conjunctiva, sclera anicteric CV: Regular rate and rhythm, no edema Pulm: Nonlabored respiration on room air ABD: Soft, nontender, mildly distended Neuro: Normal speech, normal affect Problem List Mechanical small bowel obstruction Hypertension Hyperlipidemia History of CVA/seizure disorder h/o hernia repair with bowel resection /reanastomosis Continue n.p.o., IV fluids, prophylactic IV antibiotics Pain medication as needed, antiemetics as needed General surgery consulted KUB yesterday no significant changes, small bowel series this morning with partial small bowel obstruction and stricture noted General surgery is further evaluate later today, continue current treatment for now DVT PPX: SCD Code status: Full Dispo: anticipate dc home in ~1-2 days Time Spent managing patient's care: 35 minutes
[2020-11-22] MEDS: CEFOXITIN 1 GM in NA CHLORIDE 0.9% 50 ML IVPB SCH ×3 (06:17→21:31)
[2020-11-22 06:19] LABS: Absolute Lymphocytes (CBC) 1.7 K/uL (0.7-4.9); Basophils % 0.6 % (0-1.3); Hematocrit 37.1 % (39.6-49.0); Lymphocytes % 21.6 % (15.3-44.8); RBC Red Blood Cell Count 4.29 M/uL (4.33-5.43)
[2020-11-22 06:32] LABS: Albumin 2.9 g/dL (3.4-5.0); Bilirubin Total 0.9 mg/dL (0.2-1.0); Magnesium 1.8 mg/dL (1.8-2.4); Potassium 3.8 mmol/L (3.5-5.1)
[2020-11-22] MEDS ORDERED: CEFOXITIN SODIUM 1 GM/VIAL ONE (06:41)
[2020-11-22] MEDS: levETIRAcetam 500 MG in NA CHLORIDE 0.9% 100 ML IV SCH ×2 (10:08→21:31)
--- NOTE | 2020-11-22 10:17 | RAD REPORT ---
EXAM DESCRIPTION: RAD - Small Bowel Series - 11/22/2020 9:35 am CLINICAL HISTORY: eval SBO COMPARISON: Abdomen Pelvis W Contrast dated 11/20/2020 FINDINGS: Drawer In Dobby Loom film shows a nonspecific bowel gas pattern. No obstruction or free air. No suspiciou s calcifications. Gastric size and mucosal fold pattern are normal. No delay in transit of contrast into the small rosa l. There is a persistent fixed narrowing of the small bowel in the right lower quadrant consistent wi th a known stricture and a mild partial small bowel obstruction. Contrast does reach the colon which excludes the presence of a high-grade obstruction. The small bowel remains dilated up to 4 cm. No fluoroscopy was performed. Total images acquired: 11 IMPRESSION: Stricture and partial small bowel obstruction at the anastomosis in the right hemiabdome n as was noted on the CT from 11/20/2020. No high-grade obstruction identified .
[2020-11-22] MEDS: NICOTINE 21 MG/PAT TD SCH (10:21)
--- NOTE | 2020-11-22 15:03 | PN ---
Date of Progress Note: 11/22/2020 Diagnosis: Small bowel obstruction. Subjective: The patient doing better. Passing flatus. No shortness of breath. No chest pain. No nausea, no vomiting. Review of Systems: Ten points otherwise unremarkable. Physical Examination: Chest: Clear. Abdomen: Soft and depressible. Extremities: Good capillary refill. Laboratory Data: Small-bowel series shows a stenosis of the area discussed before, but is still cont rast passing through with only partial small-bowel obstruction. Plan: Placing 1-3 conservative treatments. So we are going to give him full liquid diet today. If he fail treatment, he understands we might have to do laparotomy with possible bowel resection, marce ion of the anastomosis. If he improves, then we will discuss with him different way to diminish the chance of recurrence including diet. We will give him full liquid diet and then advance tomorrow risa terrell. AYAN/EVE Voice ID: [id number] Report ID: [id number]
[2020-11-23] MEDS: METRONIDAZOLE 500mg IVPB 500 MG/100 ML BAG IV SCH ×2 (00:11→11:07)
[2020-11-23] MEDS: NA CHLORIDE 0.9% 1,000 ML IV SCH ×2 (00:24→03:15)
[2020-11-23] MEDS: CEFOXITIN 1 GM in NA CHLORIDE 0.9% 50 ML IVPB SCH (05:24)
[2020-11-23 05:44] LABS: Absolute Lymphocytes (CBC) 1.4 K/uL (0.7-4.9); Basophils % 1.1 % (0-1.3); Hematocrit 38.6 % (39.6-49.0); Lymphocytes % 19.2 % (15.3-44.8); MPV 8.2 fL (7.6-11.3); RBC Red Blood Cell Count 4.47 M/uL (4.33-5.43)
[2020-11-23 06:23] LABS: Albumin 2.8 g/dL (3.4-5.0); Bilirubin Total 0.8 mg/dL (0.2-1.0); Magnesium 1.8 mg/dL (1.8-2.4); Potassium 3.9 mmol/L (3.5-5.1); Protein, Total 6.9 g/dL (6.4-8.2)
[2020-11-23] MEDS ORDERED: MAGNESIUM SULFATE 1 gm IVPB 1 GM/100 ML BAG IV ONE (09:00)
[2020-11-23] MEDS ORDERED: POTASSIUM CL SA 10 MEQ TAB PO ONE (09:00)
[2020-11-23] MEDS: levETIRAcetam 500 MG in NA CHLORIDE 0.9% 100 ML IV SCH (09:40)
[2020-11-23] MEDS: NICOTINE 21 MG/PAT TD SCH (09:41)
--- NOTE | 2020-11-23 12:41 | PN ---
Date of Progress Note: 11/23/2020 Diagnosis: Small bowel obstruction. Subjective: The patient is doing better, passing flatus, having bowel movement. No shortness of chivo ath. No chest pain. No fever. Review of Systems: Ten points otherwise unremarkable. Objective: Abdomen: Soft and depressible. Extremities: Good capillary refill. Plan: The patient tolerated diet this morning and yesterday. Abdomen feels benign and he is already have some function. He understands the stenosis of his small bowel. He is not ready to address herb t issue with surgery yet so he has to be on a controlled diet with soft diet and also make sure he sh ould eat his food properly. He was advised also to see his dentist. States he is missing some tooth that may not be able to chew the food properly. If he gets discharged home, then will follow up in my office this week. BABITA Voice ID: [id number] Report ID: [id number]
--- NOTE | 2020-11-23 12:45 | P.DS ---
Admission Date: 11/20/20 Discharge Date: 11/23/20 Primary Care Provider: Dr. Miranda Disposition: ROUTINE DISCHARGE Discharge Condition: GOOD Reason for Admission: Small bowel obstruction Consultations: General surgeryDr. Hawley Procedures: CT abdomen/pelvis (11/20): FINDINGS: The lung bases are clear.Small hiatal hernia. The liver, spleen, pancreas, adrenal glands and kidneys are within normal limits. Small cysts are present involving the right kidney. Mild dilatation of numerous small bowel loops in the mid and lower abdomen are noted. This is compatible with a mild mechanical small-bowel obstruction. Point of transition appears to be at the level of the right lower quadrant small bowel anastomosis (image 45/53). The appendix is normal. No evidence of significant lymphadenopathy. Moderate fat containing left inguinal hernia. Postsurgical changes in the region of the on the likely is noted. Mild lumbar degenerative changes. IMPRESSION: [id number] developing mechanical small-bowel obstruction. Transition point appears to be at the right lower quadrant small bowel anastomosis site. Moderate fat containing left inguinal hernia. KUB (11/21): Mildly dilated small bowel centrally likely not significantly changed compared with 11/20. Findings remain concerning for small bowel obstruction. Small bowel series (11/22): Stricture and partial small bowel obstruction at anastomosis in the right hemiabdomen as was noted on CT from 11/20. No high-grade obstruction identified. Problem List Mechanical small bowel obstruction Hypertension Hyperlipidemia History of CVA/seizure disorder h/o hernia repair with bowel resection /reanastomosis Brief History of Present Illness: 70-year-old male with history of CVA, hypertension, hyperlipidemia, seizure disorder presents the emergency department for abdominal pain and disten tion. Patient reports last bowel movement was this morning and normal but soon after he began having abdominal distention and pain. Patient with history of hernia repair x2. Patient was evaluated in the emergency department labs are significant for white blood cell count 13 creatinine 1.33 GFR [address] abdomen pelvis demonstrated mild to moderate developing mechanical small bowel obstruction with transition point appearing to be at the right lower quadrant small bowel anastomosis site. Also moderate fat-containing left inguinal hernia. ED provider discussed case with general surgery, wants patient admitted to hospital service and will consult. Patient given IV antibiotics and fluids in the emergency room ED provider wishes to admit for further evaluation and management of small bowel obstruction. Hospital Course: Patient was treated with medical management of prophylactic antibiotics, bowel rest and IV fluids. General surgery was consulted. Patient had gradual improvement. His diet was able to be advanced to a GI soft diet, which he tolerated well. On day of discharge she was passing flatus, having bowel movements, and having very minimal abdominal discomfort. He denied any further nausea or vomiting. After discussion with the patient and Dr. Hawley, patient was deemed stable to be discharged home. He is to follow a strict soft diet. Follow-up with his PCP in 3 to 5 days. Follow-up with general surgery Vital Signs/Physical Exam: Physical Exam: GEN: Alert, oriented, NAD HEENT: Normal conjunctiva, sclera anicteric CV: Regular rate and rhythm, no edema Pulm: Non-labored respiration on room air ABD: Soft, nontender, non-distended Neuro: Normal speech, normal affect Temp Pulse Resp BP Pulse Ox 98.3 F 57 18 139/64 99 11/23/20 08:00 11/23/20 08:00 11/23/20 08:00 11/23/20 08:00 11/23/20 08:00 Laboratory Data at Discharge: WBC 7.40 K/uL (4.3-10.9) 11/23/20 05:06 Hgb 13.0 g/dL (13.6-17.9) L 11/23/20 05:06 Hct 38.6 % (39.6-49.0) L 11/23/20 05:06 Plt Count 192 K/uL (152-406) 11/23/20 05:06 Sodium 142 mmol/L (136-145) 11/23/20 05:06 Potassium 3.9 mmol/L (3.5-5.1) 11/23/20 05:06 BUN 7 mg/dL (7-18) 11/23/20 05:06 Creatinine 0.93 mg/dL (0.55-1.3) 11/23/20 05:06 Glucose 95 mg/dL (74-106) 11/23/20 05:06 Magnesium 1.8 mg/dL (1.8-2.4) 11/23/20 05:06 Total Bilirubin 0.8 mg/dL (0.2-1.0) 11/23/20 05:06 AST 16 U/L (15-37) 11/23/20 05:06 ALT 15 U/L (12-78) 11/23/20 05:06 Alkaline Phosphatase 56 U/L (45-117) 11/23/20 05:06 Lipase 147 U/L (73-393) 11/20/20 17:19 Home Medications: Atorvastatin Calcium [Lipitor*] 20 mg PO DAILY 11/21/20 Clopidogrel Bisulfate [Plavix*] 75 mg PO DAILY 11/21/20 Furosemide 40 mg PO DAILY 11/21/20 Metoprolol Tartrate [Lopressor*] 25 mg PO BID 11/21/20 Pantoprazole [Protonix Tab*] 40 mg PO DAILY 11/21/20 Spironolactone 25 mg PO DAILY 11/21/20 Thiamine HCl 100 mg PO DAILY 11/21/20 levETIRAcetam [Keppra*] 500 mg PO BID 11/21/20 Physician Discharge Instructions: You were found to have what appears to be a stricture and bowel obstruction in the area of your previous surgery. This improved with bowel rest and IV fluids. You were evaluated by General Surgery, Dr. Hawley, who agreed that you have improved and are stable to be discharged home. Advised to follow a strict soft food diet. Follow up with PCP in 3-5 days Follow up with General surgery in a few weeks. Diet: soft Activity: Ad kaila Followup: Bob Hawley MD [ACTIVE - CAN ADMIT] - Time spent managing pt's care (in minutes): 45
[2020-11-23 13:00] VITALS: BP 119/58; TEMP 98.4
== END 2020-11-23 13:54 | disposition home or self-care (01) | DRG 389 ==
LOC: ER 16:18 → ERHOLD 19:55 → 2ND 22:18
PROVIDERS: ADMIT Hospitalist; ATTEND Hospitalist
DX: K56.609 Unspecified intestinal obstruction, unspecified as to partial versus complete obstruction (principal); N17.9 Acute kidney failure, unspecified; I10 Essential (primary) hypertension; E78.5 Hyperlipidemia, unspecified; G40.909 Epilepsy, unspecified, not intractable, without status epilepticus; K40.90 Unilateral inguinal hernia, without obstruction or gangrene, not specified as recurrent; E66.9 Obesity, unspecified; Z68.37 Body mass index [BMI] 37.0-37.9, adult; F17.210 Nicotine dependence, cigarettes, uncomplicated; Z86.73 Personal history of transient ischemic attack (TIA), and cerebral infarction without residual deficits; Z90.49 Acquired absence of other specified parts of digestive tract; Z20.822 Contact with and (suspected) exposure to COVID-19
CPT/HCPCS: 36415; 74018; 74177; 74250; 80048; 80053; 80076; 81003; 82565; 83690; 83735; 85025; 99285; J0694; J0744; J1170; J1953; J2270; J2405; J7030; Q9967; U0003

== ENCOUNTER 2021-03-08 12:14 | Emergency (ER) | payer OTHER ==
--- OUTSIDE RECORDS SUMMARY | 2021-03-08 12:16 | XMS REPORT | Continuity of Care Document ---
:1950 Author Organization [facility] t Address [address] [place] [address] [address] [place] [address] Care Team Providers Name Role Phone FABIENNE MOMIN Attending Clinician Unavailable JANNETH JUAREZ Attending Clinician Unavailable MD GLENDA KEBEDE Attending Clinician Unavailable Derrek-Mbayo_A_AH Attending Clinician Unavailable MILAN CAMP Admitting Clinician Unavailable MD MILAN CAMP Admitting Clinician Unavailable Derrek-Mbayo_A_AH Admitting Clinician Unavailable Payers Payer Name Policy Type Policy Number Effective Date Expiration Date S [facility] OF [place] - [id number] 2019 [facility] 00:00:00 (MEDICARE REPLACEMENT/ADVANT AGE - HMO) Problems This patient has no known problems. Allergies, Adverse Reactions, Alerts This patient has no known allergies or adverse reactions. Medications This patient has no known medications. Procedures This patient has no known procedures. Encounters Start End Encounter Admission Attending Care Care Encounter Source Date/Time Date/Time Type Type Clinicians Facility Department ID 2020-04-03 2020-04-03 [facility] [id number] [place] 00:00:00 00:00:00 FABI[facility]NE [facility] 2020-03-02 2020-03-11 [facility] [id number] [place] 00:00:00 00:00:00 JANNETH [address] 2019-04-12 2019-04-12 Outpatient Derrek-Mbayo VFP VFP [id number] [facility] 07:17:00 07:17:00 _A_AH [id number] Pract[facility] 2019-04-12 2019-04-12 Outpatient Derrek-Mbayo VFP VFP [id number] [facility] 07:17:00 07:17:00 _A_AH [id number] Family Practic e 2019-04-12 2019-04-12 Outpatient Derrek-Mbayo VFP VFP [phone] [facility] 07:17:00 07:17:00 _A_ [id number] Family Practic e 2016-09-17 2016-09-17 Outpatient [facility] [id number] [address] [place] [address] 07:31:53 07:31:53 Health 2016-09-03 2016-09-03 Emergency [facility] [id number] [place] 14:03:00 14:03:00 Health 2016-07-16 2016-07-16 Outpatient [facility] [id number] [address] [place] [address] 00:00:00 00:00:00 Health Results Test Description Test Time Test Comments Results Result Comments Source SARS-CoV-2 (COVID-19) RNA [Presence] in Respiratory sp ecimen by 2020-03-03 04:59:20 YADIRA with probe detection Test Item Value Reference Range Interpretation Comme nts SARS-CoV-2 (COVID-19) RNA [Presence] in Respiratory Not detected No t-Detected specimen by YADIRA with probe detection (test code = 22151-9)
--- NOTE | 2021-03-08 13:11 | ER ---
Nurse's Notes [facility] Name: Maik German Age: 70 yrs Sex: Male : 1950 Arrival Date: 03/08/2021 Time: 12:18 Bed 2 Private MD: Diagnosis: Cellulitis of left lower limb Presentation: 03/08 12:39 Chief complaint: Patient states: leg swelling and redness in left leg X 4 weeks, got iw worse over past week or so, has hx of cellulitis , was prescribed Bactrim by Dr. Thomas but he was told it could interfere with his spironolactone so they didn't start it. Coronavirus screen: At this time, the client does not indicate any symptoms associated with coronavirus-19. Ebola Screen: Patient negative for fever greater than or equal to 101.5 degrees Fahrenheit, and additional compatible Ebola Virus Disease symptoms Patient denies exposure to infectious person. Patient denies travel to an Ebola-affected area in the 21 days before illness onset. No symptoms or risks identified at this time. Initial Sepsis Screen: Does the patient meet any 2 criteria? No. Patient's initial sepsis screen is negative. Does the patient have a suspected source of infection? No. Patient's initial sepsis screen is negative. Risk Assessment: Do you want to hurt yourself or someone else? Patient reports no desire to harm self or others. Onset of symptoms was January 2021. 12:39 Method Of Arrival: Wheelchair iw 12:39 Acuity: EMMA 3 iw Triage Assessment: 13:05 General: Appears uncomfortable, Behavior is calm. jg9 Historical: - Allergies: 12:42 Cipro; iw 12:42 Lisinopril; iw - Home Meds: 12:42 spironolactone 50 mg oral tab once daily [Active]; clopidogrel 75 mg Oral tab 1 tab iw once daily [Active]; atorvastatin 20 mg Oral tab 1 tab once daily [Active]; levetiracetam 500 mg Oral tab 1 tab 2 times per day [Active]; thiamine HCl (vitamin B1) 100 mg Oral tab 100 mg daily [Active]; metoprolol tartrate 25 mg Oral tab 1 tab 2 times per day [Active]; pantoprazole 40 mg Oral TbEC 1 tab once daily [Active]; furosemide 40 mg Oral tab 1 tab once daily [Active]; - PMHx: 12:42 Cellulitis; CVA; Hyperlipidemia; Hypertension; Seizure; iw - PSHx: 12:42 Hernia repair sx x 2; iw - Immunization history:: Client reports having NOT received the Covid vaccine. - Social history:: Smoking status: Patient reports the use of cigarette tobacco products, smokes one pack cigarettes per day. Patient uses alcohol, but reports only rare drinking. claims drinking about a 6 pack/day. Screenin:05 Abuse screen: Denies threats or abuse. Denies injuries from another. Nutritional jg9 screening: No deficits noted. Tuberculosis screening: No symptoms or risk factors identified. Fall Risk None identified. Assessment: 13:05 Pain: Complains of pain in left leg. jg9 Vital Signs: 12:39 BP 139 / 53; Pulse 59; Resp 16; Temp 97.2; Pulse Ox 100% on R/A; Weight 99.79 kg; iw Height 5 ft. 1 in. (154.94 cm); 13:10 BP 145 / 79; Pulse 62; Resp 20 S; Pulse Ox 100% on R/A; jg9 12:39 Body Mass Index 41.57 (99.79 kg, 154.94 cm) iw ED Course: 12:18 Patient arrived in ED. ds1 12:41 Triage completed. iw 12:43 Arm band placed on. iw 12:49 Santos Mckeon NP is PHCP. pm1 12:49 Albino Trammell MD is Attending Physician. pm1 13:03 Maria Teresa Rojas, RN is Primary Nurse. jg9 13:05 Patient has correct armband on for positive identification. Call light in reach. jg9 13:10 Juliocesar Thomas MD is Referral Physician. pm1 13:24 No provider procedures requiring assistance completed. jg9 13:24 Patient did not have IV access during this emergency room visit. jg9 Administered Medications: 13:22 Drug: Doxycycline 100 mg Route: PO; jg9 Outcome: 13:10 Discharge ordered by . pm1 13:24 Discharged to home via wheelchair. jg9 13:24 Condition: stable 13:24 Discharge instructions given to patient, Instructed on discharge instructions, follow up and referral plans. Demonstrated understanding of instructions, follow-up care, medications, Prescriptions given X 1. 13:24 Patient left the ED. jg9 Signatures: Kamilla Mckeon ds1 Ching Wahl, RN RN iw Santos Mckeon, ZIGZAGGER ZIGZAGGER pm1 Maria Teresa Rojas RN RN jg9
--- NOTE | 2021-03-08 13:11 | EDPHYS ---
Physician Documentation [facility] Name: Maik German Age: 70 yrs Sex: Male : 1950 Arrival Date: 03/08/2021 Time: 12:18 Bed 2 Private MD: ED Physician Albino Trammell HPI: 03/08 12:59 This 70 yrs old Male presents to ER via Wheelchair with complaints of pm1 cellulitis left leg. 12:59 The patient presents with Concern over drug interaction of antibiotic, Bactrim, by Dr. danny Thomas for left leg cellulitis yesterday. was concerned over drug interaction with spironolactone per pharmacy. Therefore she did not fill the prescription prescribed yesterday and wanted reassurance her can take the medication safely. The complaints affect the left fuentes. Context: resulted from chronic swelling to bilateral lower extremities. Patient takes both spironolactone and Lasix to treat. Onset: The symptoms/episode began/occurred 2 day(s) ago. Modifying factors: The symptoms are alleviated by nothing. the symptoms are aggravated by nothing. Associated signs and symptoms: Pertinent positives: swelling, Pertinent negatives numbness, tingling. Treatment prior to arrival includes: prescription medications, Topical antibiotic. Severity of symptoms: in the emergency department the symptoms are unchanged. The patient has experienced similar episodes in the past, several times. The patient has been recently seen by a physician: the patient's primary care provider, Dr. Thomas with similar presenting complaints, was given a prescription for antibiotics. Historical: - Allergies: 12:42 Cipro; iw 12:42 Lisinopril; iw - Home Meds: 12:42 spironolactone 50 mg oral tab once daily [Active]; clopidogrel 75 mg Oral tab 1 tab iw once daily [Active]; atorvastatin 20 mg Oral tab 1 tab once daily [Active]; levetiracetam 500 mg Oral tab 1 tab 2 times per day [Active]; thiamine HCl (vitamin B1) 100 mg Oral tab 100 mg daily [Active]; metoprolol tartrate 25 mg Oral tab 1 tab 2 times per day [Active]; pantoprazole 40 mg Oral TbEC 1 tab once daily [Active]; furosemide 40 mg Oral tab 1 tab once daily [Active]; - PMHx: 12:42 Cellulitis; CVA; Hyperlipidemia; Hypertension; Seizure; iw - PSHx: 12:42 Hernia repair sx x 2; iw - Immunization history:: Client reports having NOT received the Covid vaccine. - Social history:: Smoking status: Patient reports the use of cigarette tobacco products, smokes one pack cigarettes per day. Patient uses alcohol, but reports only rare drinking. claims drinking about a 6 pack/day. ROS: 12:59 Constitutional: Negative for fever, chills, and weight loss, Respiratory: Negative for pm1 shortness of breath, cough, wheezing, and pleuritic chest pain, Abdomen/GI: Negative for abdominal pain, nausea, vomiting, diarrhea, and constipation. 12:59 MS/Extremity: Negative for injury and deformity. 12:59 Neuro: Negative for headache, weakness, numbness, tingling, and seizure. 12:59 Cardiovascular: Positive for edema, Negative for chest pain, palpitations. 12:59 Skin: Positive for cellulitis, of the left fuentes. 12:59 All other systems are negative. Exam: 12:59 Constitutional: This is a well developed, well nourished patient who is awake, alert, pm1 and in no acute distress. Head/Face: Normocephalic, atraumatic. 12:59 Back: No spinal tenderness. No costovertebral tenderness. Full range of motion. 12:59 Cardiovascular: Exam negative for acute changes, Rate: normal, Rhythm: regular, Pulses: no pulse deficits are appreciated. 12:59 Respiratory: Exam negative for acute changes, respiratory distress, shortness of breath, Breath sounds: are clear throughout. 12:59 Skin: Appearance: normal except for affected area, abscess, not appreciated, cellulitis, that is minimal, on the left fuentes. 12:59 Neuro: Exam negative for acute changes, Orientation: is normal, Mentation: is normal, Motor: moves all fours. Vital Signs: 12:39 BP 139 / 53; Pulse 59; Resp 16; Temp 97.2; Pulse Ox 100% on R/A; Weight 99.79 kg; iw Height 5 ft. 1 in. (154.94 cm); 13:10 BP 145 / 79; Pulse 62; Resp 20 S; Pulse Ox 100% on R/A; jg9 12:39 Body Mass Index 41.57 (99.79 kg, 154.94 cm) iw MDM: 12:50 Patient medically screened. pm1 13:06 Physician consultation: Juliocesar Thomas MD was called at 13:06, was contacted at 13:06, pm1 regarding changing medication from Bactrim to doxycycline due to no drug interaction with current medications. He is agreeable to the change. 13:08 Data reviewed: vital signs. Data interpreted: Pulse oximetry: on room air is 100 %. pm1 Interpretation: normal. Counseling: I had a detailed discussion with the patient and/or guardian regarding: the historical points, exam findings, and any diagnostic results supporting the discharge/admit diagnosis, the need for outpatient follow up. Administered Medications: :22 Drug: Doxycycline 100 mg Route: PO; jg9 Disposition Summary: 03/08/21 13:10 Discharge Ordered Location: Home pm1 Problem: new pm1 Symptoms: are unchanged pm1 Condition: Stable pm1 Diagnosis - Cellulitis of left lower limb pm1 Followup: pm1 - With: Juliocesar Thomas MD - When: 2 - 3 days - Reason: Recheck today's complaints, Continuance of care, Re-evaluation by your physician Discharge Instructions: - Discharge Summary Sheet pm1 - Cellulitis, Adult pm1 Forms: - Medication Reconciliation Form pm1 - Thank You Letter pm1 - Antibiotic Education pm1 - Prescription Opioid Use pm1 Prescriptions: - Doxycycline Hyclate 100 mg Oral Tablet - take 1 tablet by ORAL route every 12 hours; 20 tablet; Refills: 0, Product pm1 Selection Permitted Addendum: 03/09/2021 18:40 Co-signature as Attending Physician, Albino Trammell MD I agree with the assessment and c escamilla plan of care. Signatures: Albino Trammell MD MD cha Williams, Irene, RN Santos Armstrong NP WATER MECHANIC pm1 Maria Teresa Rojas RN RN jg9
[2021-03-08] MEDS ORDERED: DOXYCYCLINE 100 MG CAP PO ONE (13:18)
[2021-03-08 13:33] VITALS: TEMP 97.2; O2SAT 100
[2021-03-08 13:35] VITALS: BP 145/79
== END 2021-03-08 13:24 | disposition home or self-care (01) ==
LOC: ER 12:14
DX: L03.116 Cellulitis of left lower limb (principal); I10 Essential (primary) hypertension; F17.210 Nicotine dependence, cigarettes, uncomplicated; Z88.1 Allergy status to other antibiotic agents; Z88.8 Allergy status to other drugs, medicaments and biological substances
CPT/HCPCS: 99283

== ENCOUNTER 2021-05-19 16:07 | Inpatient (IN) | payer OTHER ==
--- OUTSIDE RECORDS SUMMARY | 2021-05-19 16:09 | XMS REPORT | Continuity of Care Document ---
:1950 Author Organization [facility] t Address [address] [place] [address] [address] [place] [address] Care Team Providers Name Role Phone [phone] Attending Clinician Unavailable FABIENNE MOMIN Attending Clinician Unavailable JANNETH JUAREZ Attending Clinician Unavailable MD GLENDA KEBEDE Attending Clinician Unavailable Derrek-Mbayo_A_AH Attending Clinician Unavailable [id number] Admitting Clinician Unavailable MILAN CAMP Admitting Clinician Unavailable MD MILAN CAMP Admitting Clinician Unavailable Derrek-Mbayo_A_AH Admitting Clinician Unavailable Payers Payer Name Policy Type Policy Number Effective Date Expiration Date S [facility] [place] - [id number] 2019 [facility] 00:00:00 (MEDICARE REPLACEMENT/ADVANT AGE - HMO) Problems This patient has no known problems. Allergies, Adverse Reactions, Alerts This patient has no known allergies or adverse reactions. Medications This patient has no known medications. Procedures This patient has no known procedures. Encounters Start End Encounter Admission Attending Care Care Encounter Source Date/Time Date/Time Type Type Clinicians Facility Department ID 2021-03-20 Outpatient 3 [id number] [facility] CVA [id number] [facility] 11:16:33 [id number] 2021-03-20 Outpatient 3 [id number] [facility] REF [id number] [facility] 11:15:55 [id number] 2020-04-03 2020-04-03 Outpatient LILIANE [facility] [id number] [place] 00:00:00 00:00:00 FABIENNE [facility] 2020-03-02 2020-03-11 Inpatient LARRY [facility] [id number] [place] 00:00:00 00:00:00 JANNETH [address] 2019-04-12 2019-04-12 Outpatient Tiffanie VFP [facility] [id number] [facility] 07:17:00 07:17:00 _A_AH [id number] Family Practic e 2019-04-12 2019-04-12 Outpatient Tiffanie GUERINP [facility] [id number] [facility] 07:17:00 07:17:00 _A_AH [id number] Family Practic e 2019-04-12 2019-04-12 Outpatient Tiffanie GUERINP [facility] [id number] [facility] 07:17:00 07:17:00 _A_AH [id number] Family Practic e 2016-09-17 2016-09-17 Outpatient [facility] [id number] [address] [place] [address] 07:31:53 07:31:53 Health 2016-09-03 2016-09-03 Emergency [facility] [id number] [place] 14:03:00 14:03:00 Health 2016-07-16 2016-07-16 Outpatient [facility] [id number] [address] [place] [address] 00:00:00 00:00:00 Health Results Test Description Test Time Test Comments Results Result Comments Source SARS-CoV-2 (COVID-19) RNA [Presence] in Respiratory sp ecimen by 2020-03-03 04:59:20 YADIRA with probe detection Test Item Value Reference Range Interpretation Comme nts SARS-CoV-2 (COVID-19) RNA [Presence] in Respiratory Not detected No t-Detected specimen by YADIRA with probe detection (test code = 57162-4)
[2021-05-19] MEDS ORDERED: MORPHINE 2 MG/ML SYR ONE (17:07)
[2021-05-19] MEDS ORDERED: VANCOMYCIN 1 GM/VIAL ONE (17:07)
[2021-05-19] MEDS ORDERED: METHYLPREDNISOLONE 125 MG INJ ONE (17:07)
[2021-05-19] MEDS ORDERED: AMPICILLIN/SULBACTAM 3GM/VIAL ONE (17:07)
[2021-05-19] MEDS ORDERED: IPRATROPIUM BROM 0.5MG/2.5ML ONE (17:09)
[2021-05-19] MEDS ORDERED: LEVALBUTEROL 1.25 MG/3 ML NEB ONE (17:09)
--- NOTE | 2021-05-19 17:09 | ER ---
Nurse's Notes [facility] Name: Maik German Age: 70 yrs Sex: Male : 1950 Arrival Date: 05/19/2021 Time: 16:09 Bed 5 Private MD: Juliocesar Thomas R Diagnosis: Morbid (severe) obesity due to excess calories;Cellulitis and acute lymphangitis of other parts of limb-bilateral lower extremities;Tobacco abuse counseling;Tobacco use;Lymphedema, not elsewhere classified;Venous insufficiency (chronic) (peripheral)-infected;Hypomagnesemia;Hypo-osmolality and hyponatremia Presentation: 05/19 16:15 Note pt in restroom at this time. tw2 16:19 Chief complaint: Spouse and/or significant other states: took him to his PCP and they tw2 told us to come here to see if he could be admitted for his worsening cellulitis on the LEFT lower leg. Coronavirus screen: At this time, the client does not indicate any symptoms associated with coronavirus-19. Ebola Screen: Patient denies travel to an Ebola-affected area in the 21 days before illness onset. Initial Sepsis Screen: Does the patient meet any 2 criteria? No. Patient's initial sepsis screen is negative. Does the patient have a suspected source of infection? No. Patient's initial sepsis screen is negative. Risk Assessment: Do you want to hurt yourself or someone else? Patient reports no desire to harm self or others. Onset of symptoms was May 19, 2021. 16:19 Method Of Arrival: Wheelchair tw2 16:19 Acuity: EMMA 3 tw2 Triage Assessment: 16:22 General: Appears unkempt, Behavior is calm, cooperative, appropriate for age. Pain: tw2 Complains of pain in left leg. Historical: - Allergies: 16:21 Cipro; tw2 16:21 Lisinopril; tw2 - Home Meds: 16:21 clopidogrel 75 mg Oral tab 1 tab once daily [Active]; atorvastatin 20 mg Oral tab 1 tab tw2 once daily [Active]; furosemide 40 mg Oral tab 1 tab once daily [Active]; levetiracetam 500 mg Oral tab 1 tab 2 times per day [Active]; metoprolol tartrate 25 mg Oral tab 1 tab 2 times per day [Active]; pantoprazole 40 mg Oral TbEC 1 tab once daily [Active]; spironolactone 50 mg Oral tab once daily [Active]; thiamine HCl (vitamin B1) 100 mg Oral tab 100 mg daily [Active]; - PMHx: 16:21 Cellulitis; CVA; Hyperlipidemia; Hypertension; Seizure; tw2 - PSHx: 16:21 Hernia repair sx x 2; tw2 - Immunization history:: Client reports having NOT received the Covid vaccine. - Social history:: Smoking status: Patient reports the use of cigarette tobacco products, smokes one pack cigarettes per day. Patient uses alcohol, on a daily basis. 3 beers daily. - Family history:: not pertinent. Screenin:15 Abuse screen: Denies threats or abuse. Nutritional screening: No deficits noted. tw2 Tuberculosis screening: No symptoms or risk factors identified. Fall Risk None identified. Assessment: 16:54 Derm: Wound noted left leg Wound is large crusted LLE wound, small amount of light ll1 yellow drainage. 17:55 Reassessment: No changes from previously documented assessment. Patient and/or family ll1 updated on plan of care and expected duration. Pain level reassessed. Patient is alert, oriented x 3, equal unlabored respirations, skin warm/dry/pink. Vital Signs: 16:19 BP 162 / 62; Pulse 73; Resp 17; Temp 97.8(TE); Pulse Ox 97% on R/A; Pain 8/10; tw2 17:59 BP 152 / 76; Pulse 74; ll1 19:50 BP 157 / 68; Pulse 80; Resp 17; Pulse Ox 95% ; kd3 ED Course: 16:09 Patient arrived in ED. am2 16:09 Juliocesar Thomas MD is Private Physician. am2 16:20 Triage completed. tw2 16:22 Arm band placed on. tw2 16:23 Albino Trammell MD is Attending Physician. zenaida 16:54 Martin Aviles RN is Primary Nurse. ll1 16:55 Patient has correct armband on for positive identification. Bed in low position. Call ll1 light in reach. Side rails up X 1. Pulse ox on. NIBP on. 17:05 Ryan Claire MD is Hospitalizing Provider. zenaida 17:39 EKG done, by seating and mobility technologist. reviewed by Albino Trammell MD. mb7 17:48 Inserted saline lock: 20 gauge in left forearm, using aseptic technique. zm 18:07 XRAY Chest (1 view) In Process Unspecified. EDMS 18:23 US Extremity Venous W Compression [place] In Process Unspecified. EDMS 19:15 Primary Nurse role handed off by Martin Aviles, AMALIA mw2 19:16 Yashira Jacobs, AMALIA is Primary Nurse. kd3 Administered Medications: 17:22 Drug: Xopenex (levalbuterol) 2.5 mg Route: Inhalation; ll1 17:58 Follow up: Response: No adverse reaction ll1 17:22 Drug: AtroVENT (ipratropium) Aerosol 0.5 mg Route: Inhalation; ll1 17:59 Follow up: Response: No adverse reaction ll1 17:47 Drug: SOLU-Medrol (methylPrednisoLONE) 125 mg Route: IVP; Site: left forearm; ll1 18:34 Follow up: Response: No adverse reaction ll1 17:47 Drug: Pepcid (famotidine) 20 mg Route: IVP; Site: left forearm; ll1 18:34 Follow up: Response: No adverse reaction ll1 17:48 Drug: NS 0.9% 1000 ml Route: IV; Rate: 75 ml/hr; Site: left forearm; ll1 17:48 Drug: morphine 2 mg Route: IVP; Site: left forearm; ll1 18:34 Follow up: Response: No adverse reaction ll1 17:48 Drug: Zofran (Ondansetron) 4 mg Route: IVP; Site: left forearm; ll1 18:33 Follow up: Response: No adverse reaction ll1 17:58 Drug: Unasyn (ampicillin-sulbactam) 3 grams Route: IVPB; Infused Over: 30 mins; Site: ll1 left forearm; 18:33 Follow up: Response: No adverse reaction; IV Status: Completed infusion; IV Intake: ll1 100ml 18:33 Drug: vancoMYCIN 1 grams Route: IVPB; Infused Over: 2 hrs; Site: left forearm; ll1 19:39 Drug: Magnesium Sulfate 1 grams Route: IVPB; Infused Over: 1 hrs; Site: left kd3 antecubital; Intake: 18:33 IV: 100ml; Total: 100ml. ll1 Outcome: 17:09 Decision to Hospitalize by Provider. zenaida 19:44 Admitted to Med/surg room 204, Report called to attempted to call report. manuela quiros have steven call back at extension [phone] 20:02 Admitted to Med/surg Report called to Called report to Steven swainSatya 20:02 Condition: stable 20:20 Patient left the ED. tw5 Signatures: Dispatcher [employer] EDMS Albino Trammell MD MD cha Wise, Tara, RN RN tw2 Sparkle Zepeda 2 Aileen Padilla 2 Martin Aviles RN RN 1 Carla Tang tw5 Yashira Jacobs RN RN kd3 Connie Porter mb7 Erum Hawley
--- NOTE | 2021-05-19 17:09 | EDPHYS ---
Physician Documentation [facility] Name: Maik German Age: 70 yrs Sex: Male : 1950 Arrival Date: 05/19/2021 Time: 16:09 Bed 5 Private MD: Juliocesar Thomas R ED Physician Albino Trammell HPI: 05/19 16:58 This 70 yrs old Male presents to ER via Wheelchair with complaints of Wound zenaida Check. 16:58 Patient presents to ED for recheck of: cellulitis. The affected area is on the right zenaida leg and left leg. The patient has not experienced similar symptoms in the past. obese, smoker, edema. Historical: - Allergies: 16:21 Cipro; tw2 16:21 Lisinopril; tw2 - Home Meds: 16:21 clopidogrel 75 mg Oral tab 1 tab once daily [Active]; atorvastatin 20 mg Oral tab 1 tab tw2 once daily [Active]; furosemide 40 mg Oral tab 1 tab once daily [Active]; levetiracetam 500 mg Oral tab 1 tab 2 times per day [Active]; metoprolol tartrate 25 mg Oral tab 1 tab 2 times per day [Active]; pantoprazole 40 mg Oral TbEC 1 tab once daily [Active]; spironolactone 50 mg Oral tab once daily [Active]; thiamine HCl (vitamin B1) 100 mg Oral tab 100 mg daily [Active]; - PMHx: 16:21 Cellulitis; CVA; Hyperlipidemia; Hypertension; Seizure; tw2 - PSHx: 16:21 Hernia repair sx x 2; tw2 - Immunization history:: Client reports having NOT received the Covid vaccine. - Social history:: Smoking status: Patient reports the use of cigarette tobacco products, smokes one pack cigarettes per day. Patient uses alcohol, on a daily basis. 3 beers daily. - Family history:: not pertinent. ROS: 16:58 Constitutional: Negative for fever, chills, and weight loss, Eyes: Negative for injury, zenaida pain, redness, and discharge, ENT: Negative for injury, pain, and discharge, Neck: Negative for injury, pain, and swelling, Cardiovascular: Negative for chest pain, palpitations, and edema, Abdomen/GI: Negative for abdominal pain, nausea, vomiting, diarrhea, and constipation, Back: Negative for injury and pain, : Negative for injury, bleeding, discharge, and swelling, Neuro: Negative for headache, weakness, numbness, tingling, and seizure, Psych: Negative for depression, anxiety, suicide ideation, homicidal ideation, and hallucinations, Allergy/Immunology: Negative for hives, rash, and allergies, Endocrine: Negative for neck swelling, polydipsia, polyuria, polyphagia, and marked weight changes, Hematologic/Lymphatic: Negative for swollen nodes, abnormal bleeding, and unusual bruising. 16:58 Respiratory: Positive for shortness of breath, wheezing, expiratory. Exam: 16:58 Constitutional: This is a well developed, well nourished patient who is awake, alert, zenaida and in no acute distress. Head/Face: Normocephalic, atraumatic. Eyes: Pupils equal round and reactive to light, extra-ocular motions intact. Lids and lashes normal. Conjunctiva and sclera are non-icteric and not injected. Cornea within normal limits. Periorbital areas with no swelling, redness, or edema. ENT: Nares patent. No nasal discharge, no septal abnormalities noted. Tympanic membranes are normal and external auditory canals are clear. Oropharynx with no redness, swelling, or masses, exudates, or evidence of obstruction, uvula midline. Mucous membranes moist. Neck: Trachea midline, no thyromegaly or masses palpated, and no cervical lymphadenopathy. Supple, full range of motion without nuchal rigidity, or vertebral point tenderness. No Meningismus. Chest/axilla: Normal chest wall appearance and motion. Nontender with no deformity. No lesions are appreciated. Cardiovascular: Regular rate and rhythm with a normal S1 and S2. No gallops, murmurs, or rubs. Normal PMI, no JVD. No pulse deficits. Abdomen/GI: Soft, non-tender, with normal bowel sounds. No distension or tympany. No guarding or rebound. No evidence of tenderness throughout. Back: No spinal tenderness. No costovertebral tenderness. Full range of motion. Male : Normal genitalia with no discharge or lesions. Neuro: Awake and alert, GCS 15, oriented to person, place, time, and situation. Cranial nerves II-XII grossly intact. Motor strength 5/5 in all extremities. Sensory grossly intact. Cerebellar exam normal. Normal gait. Psych: Awake, alert, with orientation to person, place and time. Behavior, mood, and affect are within normal limits. 16:58 Respiratory: the patient does not display signs of respiratory distress, Respirations: labored breathing, that is mild, Breath sounds: decreased breath sounds, that are moderate, rhonchi, that are moderate, stridor, is not appreciated, + upper airway congestion. wheezing: expiratory Vital Signs: 16:19 BP 162 / 62; Pulse 73; Resp 17; Temp 97.8(TE); Pulse Ox 97% on R/A; Pain 8/10; tw2 17:59 BP 152 / 76; Pulse 74; ll1 19:50 BP 157 / 68; Pulse 80; Resp 17; Pulse Ox 95% ; kd3 MDM: 16:23 Patient medically screened. [facility] 17:04 Differential diagnosis: cellulitis. Data reviewed: vital signs, nurses notes, lab test zenaida result(s), EKG, radiologic studies, ultrasound. Data interpreted: tire installer: rate is 73 beats/min, rhythm is regular, Pulse oximetry: on room air is 97 %. Test interpretation: by ED physician or midlevel provider: ECG, plain radiologic studies. Counseling: I had a detailed discussion with the patient and/or guardian regarding: the historical points, exam findings, and any diagnostic results supporting the discharge/admit diagnosis, lab results, radiology results, the need for further work-up and treatment in the hospital. 05/19 16:56 Order name: Basic Metabolic Panel; Complete Time: 18:37 05/19 16:56 Order name: CBC with Diff; Complete Time: 17:51 05/19 16:56 Order name: LFT's; Complete Time: 18:37 05/19 16:56 Order name: Magnesium; Complete Time: 18:37 05/19 16:56 Order name: NT PRO-BNP; Complete Time: 18:37 05/19 16:56 Order name: PT-INR; Complete Time: 18:37 05/19 16:56 Order name: Troponin HS; Complete Time: 18:37 05/19 16:56 Order name: XRAY Chest (1 view) 05/19 16:56 Order name: US Extremity Venous W Compression [place] 05/19 16:56 Order name: Blood Culture Adult (2) 05/19 16:56 Order name: Urine Culture 05/19 16:56 Order name: SARS-COV-2 RT PCR (Document "Date of Onset" if Symptomatic); Complete Time: [facility] 18:44 05/19 19:39 Order name: Urine Dipstick-Ancillary EDGA 05/19 16:56 Order name: EKG; Complete Time: 16:57 [facility] 05/19 16:56 Order name: Cardiac monitoring; Complete Time: 17:40 [facility] 05/19 16:56 Order name: EKG - Nurse/Tech; Complete Time: 17:40 [facility] 05/19 16:56 Order name: IV Saline Lock; Complete Time: 16:58 [facility] 05/19 16:56 Order name: Labs collected and sent; Complete Time: 16:58 [facility] 05/19 16:56 Order name: O2 Per Protocol; Complete Time: 16:58 [facility] 05/19 16:56 Order name: O2 Sat Monitoring; Complete Time: 16:58 [facility] 05/19 16:56 Order name: Urine Dipstick-Ancillary (obtain specimen); Complete Time: 19:39 [facility] 05/19 16:57 Order name: Wound Care; Complete Time: 17:58 [facility] Administered Medications: 17:22 Drug: Xopenex (levalbuterol) 2.5 mg Route: Inhalation; ll1 17:58 Follow up: Response: No adverse reaction ll1 17:22 Drug: AtroVENT (ipratropium) Aerosol 0.5 mg Route: Inhalation; ll1 17:59 Follow up: Response: No adverse reaction ll1 17:47 Drug: SOLU-Medrol (methylPrednisoLONE) 125 mg Route: IVP; Site: left forearm; ll1 18:34 Follow up: Response: No adverse reaction ll1 17:47 Drug: Pepcid (famotidine) 20 mg Route: IVP; Site: left forearm; ll1 18:34 Follow up: Response: No adverse reaction ll1 17:48 Drug: NS 0.9% 1000 ml Route: IV; Rate: 75 ml/hr; Site: left forearm; ll1 17:48 Drug: morphine 2 mg Route: IVP; Site: left forearm; ll1 18:34 Follow up: Response: No adverse reaction ll1 17:48 Drug: Zofran (Ondansetron) 4 mg Route: IVP; Site: left forearm; ll1 18:33 Follow up: Response: No adverse reaction ll1 17:58 Drug: Unasyn (ampicillin-sulbactam) 3 grams Route: IVPB; Infused Over: 30 mins; Site: ll1 left forearm; 18:33 Follow up: Response: No adverse reaction; IV Status: Completed infusion; IV Intake: ll1 100ml 18:33 Drug: vancoMYCIN 1 grams Route: IVPB; Infused Over: 2 hrs; Site: left forearm; ll1 19:39 Drug: Magnesium Sulfate 1 grams Route: IVPB; Infused Over: 1 hrs; Site: left kd3 antecubital; Disposition Summary: 05/19/21 17:09 Hospitalization Ordered Hospitalization Status: Inpatient Admission zenaida Provider: Ryan Claire cha Location: Telemetry/MedSurg (Inpatient) zenaida Condition: Fair zenaida Problem: new zenaida Symptoms: are unchanged zenaida Bed/Room Type: Standard zenaida Room Assignment: 204(05/19/21 19:32) Diagnosis - Morbid (severe) obesity due to excess calories zenaida - Cellulitis and acute lymphangitis of other parts of limb - bilateral lower zenaida extremities - Tobacco abuse counseling zenaida - Tobacco use zenaida - Lymphedema, not elsewhere classified zenaida - Venous insufficiency (chronic) (peripheral) - infected zenaida - Hypomagnesemia zenaida - Hypo-osmolality and hyponatremia zenaida Forms: - Medication Reconciliation Form zenaida - SBAR form zenaida Signatures: Dispatcher [employer] EDMS Amanda Zimmerman RN RN mw Anderson, Corey, MD MD cha Attema, Lee, EXPERT WITNESS-C EXPERT WITNESS-Cla1 Marialuisa Wilkins RN RN tw2 Martin Aviles RN RN ll1 Yashira Jacobs RN RN kd3 Corrections: (The following items were deleted from the chart) 19:32 17:09 zenaida
[2021-05-19] MEDS ORDERED: NA CHLORIDE 0.9% 1,000 ML ONE (17:10)
[2021-05-19] MEDS ORDERED: FAMOTIDINE 20 MG/2 ML VIAL IV ONE (17:10)
[2021-05-19] MEDS ORDERED: NA CHLORIDE 0.9% 100 ML IV ONE (17:10)
[2021-05-19] MEDS ORDERED: NA CHLORIDE 0.9% 250 ML ONE (17:10)
[2021-05-19] MEDS ORDERED: ONDANSETRON 4 MG/2 ML VIAL ONE (17:29)
[2021-05-19 17:46] LABS: Absolute Lymphocytes (CBC) 1.7 K/uL (0.7-4.9); Hematocrit 39.7 % (39.6-49.0); Lymphocytes % 16.9 % (15.3-44.8); MPV 7.4 fL (7.6-11.3)
[2021-05-19 17:51] LABS: Protime INR 1.15
[2021-05-19 18:21] LABS: Albumin 3.1 g/dL (3.4-5.0); Bilirubin Direct 0.2 mg/dL (0-0.2); Bilirubin Total 0.6 mg/dL (0.2-1.0); Magnesium 1.7 mg/dL (1.8-2.4); Potassium 4.3 mmol/L (3.5-5.1); Protein, Total 8.7 g/dL (6.4-8.2); Troponin High Sensitivity 4.8 pg/mL (<58.9)
--- NOTE | 2021-05-19 18:44 | RAD REPORT ---
EXAM DESCRIPTION: RAD - Chest Single View - 05/19/2021 6:05 pm CLINICAL HISTORY: Cough;COPD COMPARISON: Portable 01/14/2020 TECHNIQUE: AP portable chest image was obtained 05/19/2021 6:05 pm . FINDINGS: Lung volumes are slightly reduced. Interstitial markings are prominent in the mid and lowe r lung silva. Retrocardiac left base is limited by portable technique and body habitus. Left base de nse consolidation is doubtful. Heart size normal range. Central vasculature is mildly prominent. No measurable pleural effusion and no pneumothorax. No acute bony abnormality seen. No acute aortic findings suspected. IMPRESSION: No peripheral mass or consolidation identified. Retrocardiac left base assessment is hyman ited. Lung markings and vasculature are mildly prominent. A mild failure or volume overload would be possib le.
--- NOTE | 2021-05-19 18:45 | RAD REPORT ---
EXAM DESCRIPTION: US - Extrem Venous W Compress [place] - 05/19/2021 6:22 pm CLINICAL HISTORY: Pain;Swelling COMPARISON: None. TECHNIQUE: Real-time sonographic evaluation of the bilateral lower extremity common femoral, superfi cial femoral, popliteal and posterior tibial veins was performed. FINDINGS: Normal compressibility, flow augmentation, phasic flow and spontaneous flow are identified in the left and right lower extremity common femoral, superficial femoral, popliteal and posterior t ibial veins. No intraluminal filling defects seen. IMPRESSION: No DVT in either lower extremity.
[2021-05-19] MEDS ORDERED: MAGNESIUM SULFATE 1 gm IVPB 1 GM/100 ML BAG IV ONE (19:20)
[2021-05-19 19:39] LABS: Urine Blood Negative (Negative); Urine Glucose Negative (Negative); Urine Protein Negative (Negative); Urine Specific Gravity 1.015 (1.005-1.030)
[2021-05-19] MEDS: VANCOMYCIN 1 GM in NA CHLORIDE 0.9% 250 ML IVPB SCH ×2 (20:33→21:00)
[2021-05-19] MEDS ORDERED: ACETAMINOPHEN 500 MG TAB PO PRN (20:33)
[2021-05-19] MEDS ORDERED: ONDANSETRON 4 MG/2 ML VIAL IV PRN (20:33)
[2021-05-19] MEDS: MORPHINE 2 MG/ML SYR IV PRN (20:52)
[2021-05-19] MEDS: NA CHLORIDE 0.9% 1,000 ML IV SCH (21:36)
[2021-05-19 21:49] VITALS: BMI 44.4
--- NOTE | 2021-05-19 22:21 | P.HP ---
Certification for Inpatient With expected LOS: >2 Midnights Patient will require the following post-hospital care: Home Health Services Practitioner: I am a practitioner with admitting privileges, knowledge of patient current condition, hospital course, and medical plan of care. Services: Services provided to patient in accordance with Admission requirements found in Title 42 Section 412.3 of the Code of Federal Regulations Patient History Date of Service: 05/20/21 Reason for admission: Cellulitis involving the left leg History of Present Illness: 70-year-old male patient medical history significant for hypertension, hyperlipidemia, history of stasis dermatitis with recurrent ulcers and infection in the foot/leg was evaluated in the ER for episode of left leg infection. He reported increased redness and pain on the left leg for which she has been having recurrent infection has been under wound care by primary doctor. He is significantly frustrated with care given by his primary care doctor and he decided to come in to the emergency room because of persistent pain and strong suspicion for infection. Initial labs were not overtly concerning however because of the chronicity of his illness he was admitted for IV antibiotic therapy and possible wound care. He denied overt episode of night sweats, diarrhea, fever, chills. Reports persistent pain in the lower extremity on the left. Allergies ciprofloxacin [From Cipro] Allergy (Verified 11/21/20 00:20) swelling of tongue lisinopril Allergy (Verified 11/21/20 00:20) swelling Home Medications: Atorvastatin Calcium [Lipitor*] 20 mg PO DAILY 11/21/20 Clopidogrel Bisulfate [Plavix*] 75 mg PO DAILY 11/21/20 Furosemide 40 mg PO DAILY 11/21/20 Metoprolol Tartrate [Lopressor*] 25 mg PO BID 11/21/20 Pantoprazole [Protonix Tab*] 40 mg PO DAILY 11/21/20 Spironolactone 50 mg PO DAILY 11/21/20 Thiamine HCl 100 mg PO DAILY 11/21/20 levETIRAcetam [Keppra*] 500 mg PO BID 11/21/20 - Past Medical/Surgical History Diabetic: No -: stroke-2015 -: Hyperlipidemia -: Hypertension -: hepatitis c -: cellulitis to legs -: sleep apnea -: hernia repair x2 Psychosocial/ Personal History: Lives at home with - Family History Father -: Heart disease - Social History Alcohol use: Yes CD- Drugs: No Caffeine use: No Review of Systems General: Unremarkable Eyes: Unremarkable ENT: Unremarkable Respiratory: Unremarkable Cardiovascular: Unremarkable Gastrointestinal: Unremarkable Genitourinary: Unremarkable Musculoskeletal: Atrophy, Leg Pain Integumentary: Rash, Other (Dressing over left leg) Neurological: Unremarkable Physical Examination - Vital Signs Temperature: 97.8 F Blood Pressure: 157/68 Pulse: 80 Respirations: 17 - Physical Exam General: Alert, In no apparent distress, Oriented x3 HEENT: Atraumatic, Normocephalic Neck: Supple Respiratory: Normal air movement Cardiovascular: Regular rate/rhythm, Normal S1 S2 Gastrointestinal: Soft and benign Integumentary: Rash(es), Skin breakdown, Skin lesion Neurological: Normal speech - Studies Laboratory Data (last 24 hrs) 05/19/21 17:34: PT 12.7 H, INR 1.15 05/19/21 17:34: WBC 10.1, Hgb 13.5 L, Hct 39.7, Plt Count 296 05/19/21 17:34: Sodium 125 L, Potassium 4.3, BUN 11, Creatinine 1.21, Glucose 74, Magnesium 1.7 L, Total Bilirubin 0.6, AST 21, ALT 25, Alkaline Phosphatase 81 Assessment and Plan - Plan 1. Cellulitis involving the left lower extremity. There is concern for infection process. We will start on empiric antibiotic of vancomycin and Unasyn. Cultures have been taken. We will follow cultures. We will have wound care evaluate patient. 2. Hypertension: Monitor vital signs per unit protocol and continue outpatient prescribed antihypertensive medications. 3. Hyperlipidemia: Continue statin therapy. 4. Mood disorder: We will continue levels Keppra for management. Prophylaxis: Lovenox for DVT prophylaxis Discharge Plan: Home - Advance Directives Does patient have a Living Will: No Does patient have a Durable POA for Healthcare: No - Code Status/Comfort Care Code Status Assessed: Yes
[2021-05-19] MEDS ORDERED: VANCOMYCIN 1 GM in NA CHLORIDE 0.9% 250 ML IVPB ONE (23:00)
[2021-05-20 05:25] LABS: Absolute Lymphocytes (CBC) 0.6 K/uL (0.7-4.9); Lymphocytes % 10.1 % (15.3-44.8); MPV 7.2 fL (7.6-11.3); RBC Red Blood Cell Count 4.64 M/uL (4.33-5.43)
[2021-05-20 05:49] LABS: Albumin 2.8 g/dL (3.4-5.0); Bilirubin Total 0.5 mg/dL (0.2-1.0); Potassium 4.6 mmol/L (3.5-5.1); Protein, Total 8.1 g/dL (6.4-8.2)
[2021-05-20 06:00] LABS: Blood Morphology Comment NOT SEEN (NOT SEEN); Platelet Estimate ADEQ
[2021-05-20] MEDS: AMPICILLIN/SULBACT 1.5 GM in NA CHLORIDE 0.9% 100 ML IVPB SCH ×3 (08:14)
[2021-05-20] MEDS: MORPHINE 2 MG/ML SYR IV PRN ×2 (08:15→16:01)
[2021-05-20] MEDS: SPIRONOLACTONE 25 MG TABLET PO SCH (08:50)
[2021-05-20] MEDS: ATORVASTATIN 20 MG TAB PO SCH (08:51)
[2021-05-20] MEDS: METOPROLOL TAR 25 MG TAB PO SCH ×2 (08:51→20:54)
[2021-05-20] MEDS: CLOPIDOGREL 75 MG TABLET PO SCH (08:51)
[2021-05-20] MEDS: THIAMINE HCL 100 MG TABLET PO SCH (08:51)
[2021-05-20] MEDS: levETIRAcetam 500 MG TAB PO SCH ×2 (08:51→20:53)
[2021-05-20] MEDS: PANTOPRAZOLE 40MG TABLET PO SCH (08:51)
[2021-05-20] MEDS: FUROSEMIDE 40 MG TABLET PO SCH (08:52)
[2021-05-20] MEDS: ENOXAPARIN 40 MG/0.4 ML SQ SCH (08:53)
[2021-05-20] MEDS: HYDROCODONE/APAP 5/325 MG TAB PO PRN ×2 (10:48→18:42)
--- NOTE | 2021-05-20 12:34 | EKG ---
Test Date: 2021-05-19 Test Time: 17:18:21 Dough Mixer Helper: BASSAM MEASUREMENT RESULTS: Intervals: Rate: 77 MO: 158 QRSD: 78 QT: 382 QTc: 432 [place]: P: 37 MO: 158 QRS: 31 T: 19 INTERPRETIVE STATEMENTS: Normal sinus rhythm Normal ECG Compared to ECG 01/08/2020 13:57:47 Prolonged QT interval no longer present Electronically Signed On 05-20-21 12:33:12 CDT by Maximiliano Flaherty
[2021-05-20] MEDS: AMPICILLIN/SULBACT 3 GM in NA CHLORIDE 0.9% 100 ML IVPB SCH ×2 (12:42→18:42)
[2021-05-20] MEDS: NA CHLORIDE 0.9% 1,000 ML IV SCH ×2 (12:43→22:31)
[2021-05-20] MEDS: NICOTINE 21 MG/PAT TD SCH (13:47)
[2021-05-20] MEDS ORDERED: VANCOMYCIN 2 GM in NA CHLORIDE 0.9% 500 ML IV SCH (15:00)
--- NOTE | 2021-05-20 17:51 | P.PN ---
Subjective Date of Service: 05/21/21 Chief Complaint: Cellulitis involving the left leg Subjective: No new changes Physical Examination - Vital Signs Temperature: 97.8 F Blood Pressure: 157/68 Pulse: 80 Respirations: 17 Pulse Ox (%): 95 - Physical Exam General: Alert, Oriented x3 HEENT: Normocephalic Respiratory: Normal air movement Cardiovascular: Regular rate/rhythm, Normal S1 S2 Gastrointestinal: Soft and benign Neurological: Normal speech, Cranial nerves 3-12 intact - Studies Laboratory Data (last 24 hrs) 05/19/21 17:34: PT 12.7 H, INR 1.15 05/19/21 17:34: Sodium 125 L, Potassium 4.3, BUN 11, Creatinine 1.21, Glucose 74, Magnesium 1.7 L, Total Bilirubin 0.6, AST 21, ALT 25, Alkaline Phosphatase 81 Assessment And Plan - Plan 1. Cellulitis involving the left lower extremity. There is concern for infection process. We will continue unasyn and discontinue vancomycin. Cultures have been taken. We will follow cultures. We will have wound care evaluate patient. 2. Hypertension: Monitor vital signs per unit protocol and continue outpatient prescribed antihypertensive medications. 3. Hyperlipidemia: Continue statin therapy. 4. Mood disorder: We will continue levels Keppra for management. Prophylaxis: Lovenox for DVT prophylaxis
[2021-05-21] MEDS: AMPICILLIN/SULBACT 3 GM in NA CHLORIDE 0.9% 100 ML IVPB SCH ×2 (00:56→06:01)
[2021-05-21] MEDS: NA CHLORIDE 0.9% 1,000 ML IV SCH (03:04)
[2021-05-21] MEDS: HYDROCODONE/APAP 5/325 MG TAB PO PRN (03:09)
[2021-05-21 05:54] LABS: Absolute Lymphocytes (CBC) 1.6 K/uL (0.7-4.9); Hematocrit 35.8 % (39.6-49.0); Lymphocytes % 21.7 % (15.3-44.8); MPV 7.5 fL (7.6-11.3); RBC Red Blood Cell Count 4.28 M/uL (4.33-5.43)
[2021-05-21 06:07] LABS: Albumin 2.7 g/dL (3.4-5.0); Bilirubin Total 0.4 mg/dL (0.2-1.0); Magnesium 1.8 mg/dL (1.8-2.4); Potassium 4.1 mmol/L (3.5-5.1); Protein, Total 7.2 g/dL (6.4-8.2)
[2021-05-21 06:42] LABS: Urine Appearance Clear (Clear); Urine Bilirubin Negative (Negative); Urine Blood Negative (Negative); Urine Color Yellow (Yellow); Urine Glucose Negative (Negative); Urine Protein Negative (Negative); Urine Urobilinogen 0.2 mg/dL (0.2-1.0); Urine pH 6.5 (5.0-7.0)
[2021-05-21 06:43] LABS: Urine Microscopic Reflex NO UMIC
[2021-05-21] MEDS ORDERED: MAGNESIUM SULFATE 1 gm IVPB 1 GM/100 ML BAG IV ONE (09:00)
[2021-05-21] MEDS ORDERED: MEDIHONEY 44 ML TOPICAL TUBE TOP SCH (09:00)
[2021-05-21] MEDS ORDERED: VANCOMYCIN 2 GM in NA CHLORIDE 0.9% 500 ML IV SCH (09:00)
[2021-05-21] MEDS: FUROSEMIDE 40 MG TABLET PO SCH (09:44)
[2021-05-21] MEDS: ATORVASTATIN 20 MG TAB PO SCH (09:44)
[2021-05-21] MEDS: PANTOPRAZOLE 40MG TABLET PO SCH (09:45)
[2021-05-21] MEDS: SPIRONOLACTONE 25 MG TABLET PO SCH (09:45)
[2021-05-21] MEDS: CLOPIDOGREL 75 MG TABLET PO SCH (09:46)
[2021-05-21] MEDS: METOPROLOL TAR 25 MG TAB PO SCH (09:46)
[2021-05-21] MEDS: NICOTINE 21 MG/PAT TD SCH (09:48)
[2021-05-21] MEDS: levETIRAcetam 500 MG TAB PO SCH (10:00)
[2021-05-21] MEDS: THIAMINE HCL 100 MG TABLET PO SCH (10:00)
[2021-05-21] MEDS: ENOXAPARIN 40 MG/0.4 ML SQ SCH (10:01)
[2021-05-21] MEDS ORDERED: AMOX/K CLAV 875 MG TAB PO SCH (12:00)
[2021-05-21 12:23] VITALS: O2SAT 98
[2021-05-21 13:38] VITALS: BP 162/73; TEMP 97.4
--- NOTE | 2021-05-21 15:36 | P.DS ---
Admission Date: 05/19/21 Discharge Date: 05/21/21 Disposition: [facility] HOME/HOME HEALTH CARE Discharge Condition: FAIR Reason for Admission: Cellulitis involving the left leg Brief History of Present Illness: 70-year-old male patient medical history significant for hypertension, hyperlipidemia, history of stasis dermatitis with recurrent ulcers and infection in the foot/leg was evaluated in the ER for episode of left leg infection. He r eported increased redness and pain on the left leg for which she has been having recurrent infection has been under wound care by primary doctor. He is significantly frustrated with care given by his primary care doctor and he decided to come in to the emergency room because of persistent pain and strong suspicion for infection. Initial labs were not overtly concerning however because of the chronicity of his illness he was admitted for IV antibiotic therapy and possible wound care. He denied overt episode of night sweats, diarrhea, fever, chills. Reports persistent pain in the lower extremity on the left. Hospital Course: He was started on empiric antibiotic of vancomycin and Unasyn for suspected cellulitis of the lower extremity and he had wound care consult placed. He was evaluated by wound care and recommendation was to have Medihoney applied to wound for appropriate healing process. At bedside today wound looked clean with no significant erythema or discharge. He was deemed stable for discharge to complete an oral course of Augmentin for 7 days as his blood cultures were negative. He will follow-up with his primary care doctor for routine care and also for wound care as an outpatient. Vital Signs/Physical Exam: Temp Pulse Resp BP Pulse Ox 97.4 F 64 24 H 162/73 H 100 05/21/21 12:00 05/21/21 12:00 05/21/21 12:00 05/21/21 12:00 05/21/21 12:00 Laboratory Data at Discharge: WBC 7.5 K/uL (4.3-10.9) D 05/21/21 05:25 Hgb 12.0 g/dL (13.6-17.9) L 05/21/21 05:25 Hct 35.8 % (39.6-49.0) L 05/21/21 05:25 Plt Count 241 K/uL (152-406) 05/21/21 05:25 PT 12.7 SECONDS (9.5-12.5) H 05/19/21 17:34 INR 1.15 05/19/21 17:34 Sodium 134 mmol/L (136-145) L 05/21/21 05:25 Potassium 4.1 mmol/L (3.5-5.1) 05/21/21 05:25 BUN 21 mg/dL (7-18) H 05/21/21 05:25 Creatinine 1.19 mg/dL (0.55-1.3) 05/21/21 05:25 Glucose 113 mg/dL (74-106) H 05/21/21 05:25 Magnesium 1.8 mg/dL (1.8-2.4) 05/21/21 05:25 Total Bilirubin 0.4 mg/dL (0.2-1.0) 05/21/21 05:25 AST 19 U/L (15-37) 05/21/21 05:25 ALT 22 U/L (12-78) 05/21/21 05:25 Alkaline Phosphatase 59 U/L (45-117) 05/21/21 05:25 Home Medications: Atorvastatin Calcium [Lipitor*] 20 mg PO DAILY 11/21/20 Clopidogrel Bisulfate [Plavix*] 75 mg PO DAILY 11/21/20 Furosemide 40 mg PO DAILY 11/21/20 Metoprolol Tartrate [Lopressor*] 25 mg PO BID 11/21/20 Pantoprazole [Protonix Tab*] 40 mg PO DAILY 11/21/20 Spironolactone 50 mg PO DAILY 11/21/20 Thiamine HCl 100 mg PO DAILY 11/21/20 levETIRAcetam [Keppra*] 500 mg PO BID 11/21/20 Amox/Clavulanate [Augmentin 875-125 Tab*] 875 mg PO BID 7 Days #14 tab 05/21/21 Medihoney [Medihoney Woundcare Gel*] 1 appl TOP DAILY 30 Days #1 tube 05/21/21 New Medications: Amox/Clavulanate [Augmentin 875-125 Tab*] 875 mg PO BID 7 Days #14 tab Medihoney [Medihoney Woundcare Gel*] 1 appl TOP DAILY 30 Days #1 tube Followup: Juliocesar Thomas MD [Primary Care Provider] -
== END 2021-05-21 16:50 | disposition home or self-care (01) | DRG 603 ==
LOC: ER 16:07 → ERHOLD 18:38 → 2ND 20:04
PROVIDERS: ADMIT Internal Medicine Nephrology; ATTEND Internal Medicine Nephrology
DX: L03.116 Cellulitis of left lower limb (principal); E87.1 Hypo-osmolality and hyponatremia; Z68.41 Body mass index [BMI] 40.0-44.9, adult; E66.01 Morbid (severe) obesity due to excess calories; I10 Essential (primary) hypertension; E78.5 Hyperlipidemia, unspecified; I87.2 Venous insufficiency (chronic) (peripheral); F39 Unspecified mood [affective] disorder; E83.42 Hypomagnesemia; L03.115 Cellulitis of right lower limb; F17.210 Nicotine dependence, cigarettes, uncomplicated; Z88.1 Allergy status to other antibiotic agents; Z88.8 Allergy status to other drugs, medicaments and biological substances; Z79.02 Long term (current) use of antithrombotics/antiplatelets; Z79.899 Other long term (current) drug therapy; Z86.73 Personal history of transient ischemic attack (TIA), and cerebral infarction without residual deficits; Z20.822 Contact with and (suspected) exposure to COVID-19
CPT/HCPCS: 36415; 71045; 80048; 80053; 80076; 81003; 83735; 83880; 84484; 85025; 85610; 87040; 87086; 87088; 93005; 93970; 99251; 99285; J0295; J1650; J2270; J2405; J2930; J3370; J3475; J7030; J7040; J7050; U0003